=== PATIENT | female | born 1940 | race Caucasian/White ===

== ENCOUNTER 2024-10-08 12:53 | Outpatient (CLI) | payer MEDICARE, MEDICAID, SELFPAY ==
--- OUTSIDE RECORDS SUMMARY | 2024-10-08 12:58 | XMS_ITS ---
Author Organization Unknown Address [address] [place] [address] [phone] Phone Care Team Providers Care Ship Engines Operating Engineer Name Role Phone RANDI Hernadez Attending Unavailable WILLIAM Rollins Primary Unavailable Immunization Immunization Date Status Additional Notes Code Code System influenza, unspecified formulation 01/15/2021 Completed 88 CVX Tdap 12/08/2019 Completed 115 CVX zoster live 01/05/2015 Completed 121 CVX Influenza, high-dose, trivalent, PF 01/07/2016 Completed 135 CVX Influenza, high-dose, trivalent, PF 01/03/2017 Completed 135 CVX Influenza, high-dose, trivalent, PF 12/28/2018 Completed 135 CVX Influenza, high-dose, trivalent, PF 12/14/2023 Completed 135 CVX Influenza, adjuvanted, trivalent, PF 12/18/2017 Completed 168 CVX zoster recombinant 02/28/2019 Completed 187 CVX zoster recombinant 05/28/2019 Completed 187 CVX Influenza, high-dose, quadrivalent, PF 12/10/2019 Completed 197 CVX Influenza, high-dose, quadrivalent, PF 12/15/2020 Completed 197 CVX Influenza, high-dose, quadrivalent, PF 11/26/2021 Completed 197 CVX Influenza, high-dose, quadrivalent, PF 12/08/2022 Completed 197 CVX COVID-19, mRNA, LNP-S, PF, 3 0 mcg/0.3 mL dose 05/14/2020 Completed 208 CVX COVID-19, mRNA, LNP-S, PF, 3 0 mcg/0.3 mL dose 06/04/2020 Completed 208 CVX COVID-19, mRNA, LNP-S, PF, 3 0 mcg/0.3 mL dose 12/23/2020 Completed 208 CVX Pneumococcal conjugate PCV20 , polysaccharide [id number] conjugate, adjuvant, PF 07/16/2023 Completed 216 CVX COVID-19, mRNA, LNP-S, PF, 3 0 mcg/0.3 mL dose, priya-sucrose 07/02/2021 Completed 217 CVX COVID-19, mRNA, LNP-S, bivalent, PF, 50 mcg/0.5 mL or 25mcg/0.25 mL dose 08/06/2022 Completed 229 CVX COVID-19, mRNA, LNP-S, bivalent, PF, 30 mcg/0.3 mL dose 12/30/2021 Completed 300 CVX RSV, recombinant, protein subunit RSVpreF, adjuvant reconstituted, 0.5 mL, PF 07/16/2023 Completed 303 CV X COVID-19, mRNA, LNP-S, PF, 5 0 mcg/0.5 mL 12/16/2022 Completed 312 CVX COVID-19, mRNA, LNP-S, PF, 5 0 mcg/0.5 mL 12/14/2023 Completed 312 CVX COVID-19, mRNA, LNP-S, PF, 5 0 mcg/0.5 mL 07/05/2024 Completed 312 CVX Social History Type Status Start Date End Date Code Code Syst em Smoking History Never smoker (Never Smoked) [id number] SNOMED CT Sex Female Medications Medication Start Date End Date Route Frequency Dose Code Code System Medication Instructions Home Meds oseltamivir phosphate 75MG Oral Capsule 02/14/2022 05/02/2023 ORAL EVERY 12 HOURS 75 MILLIGRAMS 886171 RxNorm TAKE 75 MILLIGRAMS ORAL EVERY 12 HOURS starting the evening of 02/14/2022 Atorvastatin Calcium 40MG Oral Tablet 02/14/2022 05/03/2023 ORAL ONCE A DAY 40 MILLIGRAMS 417978 RxNorm TAKE 40 MILLIGRAMS ORAL ONCE A DAY Eliquis 5MG Oral Tablet 02/14/2022 Unknown ORAL EVERY 12 HOURS 5 MILLIGRAMS 9729008 RxNorm TAKE 5 MILLIGRAMS ORAL EVERY 12 HOURS HYDROcodone bitartrate-ac etaminophen 5MG-325MG Oral Tablet 02/14/2022 05/02/2023 ORAL NEEDED EVERY 6 HOURS 1 TABLET 775410 RxNorm TAKE 1 TABLET ORAL NEEDED EVERY 6 HOURS Lisinopril 40MG Oral Tablet 02/14/2022 Unknown ORAL TWICE A DAY 40 MILLIGRAMS 988008 RxNorm TAKE 40 MILLIGRAMS ORAL TWICE A DAY metFORMIN HCl 500MG Oral Tablet 02/14/2022 Unknown ORAL TWICE A DAY WITH MEALS 500 MILLIGRAMS 536188 RxNorm TAKE 500 MILLIGRAMS ORAL TWICE A DAY WITH MEALS predniSONE 20MG Oral Tablet 02/14/2022 05/02/2023 BY MOUTH ONCE A DAY 2 TABLET 610829 RxNorm TAKE 2 TABLET BY MOUTH ONCE A DAY x 3 days, then TAKE 1 TABLET BY MOUTH ONCE A DAY x 3 days Aspirin 81MG Oral Tablet, Chewable 05/06/2023 Unknown ORAL ONCE A DAY 81 MILLIGRAMS 916172 RxNorm TAKE 81 MILLIGRAMS ORAL ONCE A DAY Digoxin 0.125MG Oral Tablet 05/06/2023 Unknown ORAL ONCE A DAY 0.25 MILLIGRAMS RxNorm TAKE 0.25 MILLIGRAMS ORAL ONCE A DAY Furosemide 40MG Oral Tablet 05/06/2023 Unknown ORAL EVERY 48 HOURS 40 MILLIGRAMS 507126 RxNorm TAKE 40 MILLIGRAMS ORAL EVERY 48 HOURS predniSONE 20MG Oral Tablet 05/06/2023 Unknown ORAL ONCE A DAY 40 MILLIGRAMS 676819 RxNorm TAKE 40 MILLIGRAMS ORAL ONCE A DAY Atorvastatin Calcium 40MG Oral Tablet 05/06/2023 Unknown ORAL AT BEDTIME 40 MILLIGRAMS 944113 RxNorm TAKE 40 MILLIGRAMS ORAL AT BEDTIME Albuterol Sulfate HFA 0.09MG/1Actua tion Inhalation Suspension 05/06/2023 Unknown INHALA TION NEEDED EVERY 4 HOURS 2 Puff 4411667 RxNorm 2 Puff INHALATION NEEDED EVERY 4 HOURS Procare Inhaler Spacer Chamber 05/06/2023 Unknown BY MOUTH DIRECTE D 1 APPLICATOR RxNorm TAKE 1 APPLICATOR BY MOUTH DIRECTED Tessalon Perles 100MG Oral Capsule, Liquid Filled 05/06/2023 Unknown BY MOUTH NEEDED 3 TIMES A DAY 1 CAPSULE 496165 RxNorm TAKE 1 CAPSULE BY MOUTH NEEDED 3 TIMES A DAY Assessment You had the following problems:RSV INFECTIONATRIAL FIBRILLATION W/ RVRTYPE 2 DMESSENTIAL HYPERTENSIONMIXED HYPERLIPIDEMIALESION OF LIVERCOUGHDYSPNEA Hospital Discharge Instructions Should you have any questions prior to discharge, please contact a member of your healthcare team. If you have left the hospital and have any questions, please contact your primary care physician. Reason For Referral No Data Found Problems Problem Start Date Resolved Date Status Code Code System RSV INFECTION active 75257158 SNOMED -CT ATRIAL FIBRILLATION W/ RVR active 154614310914998 SNOMED-CT TYPE 2 DM active 39439217 SNOMED-CT ESSENTIAL HYPERTENSION active 2114577 0 SNOMED-CT MIXED HYPERLIPIDEMIA active 587519651 SNOMED-CT LESION OF LIVER active 622449293 SNOM ED-CT COUGH active 14495646 SNOMED-CT DYSPNEA active 694892081 SNOMED-CT INFLUENZA 05/06/2023 resolved 5756155 SNOMED-CT Allergies and Adverse Reactions Allergy Substance Reaction Severity Start Date Concern Status Co de Code System No Known Allergies Moderate Active 929359599 SN OMED-CT Plan of Treatment US Echo With Color (39013) 10/20/2024 US Carotid Doppler (82059) 04/03/2024 Digital Tico Screen R Unilateral (35158) 11/10/2024 Encounters Encounter Diagnosis Start Date Code Code Sys tem Carpal tunnel syndrome, left upper limb 05/01/2023 SNOMED-CT Personal Care Team Section
--- OUTSIDE RECORDS SUMMARY | 2024-10-08 12:58 | XMS_ITS | Encounter Summary ---
Author Organization [facility] Address [address] [place] [address] Care Team Providers Care Magento Web Developer Name Role Phone Bunny Dash MD Primary Care Provider [phone] Shar Anderson MD Unavailable UnavailAlok Carias MD Unavailable Yue Talbot NP Unavailable Unavailable Cornelia Rees MD Unavailable UnavailMartha Mcnulty MD Unavailable Encounter Details Date Type Department Care Team (Late Contact Info) Description 08/31/2018 Abstract SFL CONVERSION [address] [place] [address] , Generic Conversion, Social History Tobacco Use Types Packs/Day Years Used Date Smoking Tobacco: Never Smokeless Tobacco: Never Alcohol Use Standard Drinks/Week Comments No 0 (1 standard drink = 0.6 oz pur e alcohol) Comments Unknown Sex and Gender Information Value Date Recorded Sex Assigned at Not on file Legal Sex Female 8:59 PM CDT Gender Identity Not on file Sexual Orientation Not on file Occupation Industry Job Start Date Job End Date retired Not on file Not on file Not on file documented as of this encounter Plan of Treatment Upcoming Encounters Date Type Department Care Team (Late Contact Info) Description 10/30/2024 11:15 AM CDT Office Visit [facility] [address] [place] [address] Martha Bennett MD [address] [place] [address] documented as of this encounter Visit Diagnoses Not on filedocumented in this encounter Care Teams Magento Web Developer Relationship Specialty Start Date End Date Bunny Dash MD [address] [place] [address] PCP - General FAMILY PRACTICE 07/17/17 [place] [address] EP Computer Repair Technician CLINICAL CARDIAC ELECTROPHYSIOLOGY 11/30/17 03/21/22 [place] [address] Neurology Psychiatry 01/04/18 [facility] [place] [address] Referring Physician Nurse Practitioner [facility] 03/22/22 [place] [address] Consulting Physician CARDIOVASCULAR DISEASE 03/22/2207/20 Martha Bennett MD [address] [place] [address] Consulting Physician CARDIOVASCULAR DISEASE 07/22/23 documented as of this encounter
--- OUTSIDE RECORDS SUMMARY | 2024-10-08 12:58 | XMS_ITS ---
Author Organization Unknown Address [address] [place] [address] [phone] Phone Care Team Providers Care Cloud Security Architect Name Role Phone ELOY WHALEY Attending Unavailable WILLIAM Rollins Primary Unavailable Immunization [...] 208 CVX Pneumococcal conjugate PCV20 , polysaccharide HLA931 conjugate, adjuvant, PF 07/16/2023 Completed 216 CVX [...] em Smoking History Never smoker (Never Smoked) 450041165 SNOMED CT Sex Female Medications Medication Start Date End Date Route Frequency Dose Code Code System Medication Instructions Home Meds Eliquis 5MG Oral Tablet 02/14/2022 Unknown ORAL EVERY 12 HOURS 5 MILLIGRAMS 7392959 RxNorm TAKE 5 MILLIGRAMS ORAL EVERY 12 HOURS Lisinopril 40MG Oral Tablet 02/14/2022 Unknown ORAL TWICE A DAY 40 MILLIGRAMS 304915 RxNorm TAKE 40 MILLIGRAMS ORAL TWICE A DAY metFORMIN HCl 500MG Oral Tablet 02/14/2022 Unknown ORAL TWICE A DAY WITH MEALS 500 MILLIGRAMS 219132 RxNorm TAKE 500 MILLIGRAMS ORAL TWICE A DAY WITH MEALS Aspirin 81MG Oral Tablet, Chewable 05/06/2023 Unknown ORAL ONCE A DAY 81 MILLIGRAMS 176495 RxNorm TAKE 81 MILLIGRAMS ORAL ONCE A DAY Digoxin 0.125MG Oral Tablet 05/06/2023 Unknown ORAL ONCE A DAY 0.25 MILLIGRAMS RxNorm TAKE 0.25 MILLIGRAMS ORAL ONCE A DAY Furosemide 40MG Oral Tablet 05/06/2023 Unknown ORAL EVERY 48 HOURS 40 MILLIGRAMS 028957 RxNorm TAKE 40 MILLIGRAMS ORAL EVERY 48 HOURS predniSONE 20MG Oral Tablet 05/06/2023 Unknown ORAL ONCE A DAY 40 MILLIGRAMS 691049 RxNorm TAKE 40 MILLIGRAMS ORAL ONCE A DAY Atorvastatin Calcium 40MG Oral Tablet 05/06/2023 Unknown ORAL AT BEDTIME 40 MILLIGRAMS 069360 RxNorm TAKE 40 MILLIGRAMS ORAL AT BEDTIME Albuterol Sulfate HFA 0.09MG/1Actu ation Inhalation Suspension 05/06/2023 Unknown INHALATI ON NEEDED EVERY 4 HOURS 2 Puff 4662718 RxNorm 2 Puff INHALATION NEEDED EVERY 4 HOURS Procare Inhaler Spacer Chamber 05/06/2023 Unknown BY MOUTH DIRECTED 1 APPLICATOR RxNorm TAKE 1 APPLICATOR BY MOUTH DIRECTED Tessalon Perles 100MG Oral Capsule, Liquid Filled 05/06/2023 Unknown BY MOUTH NEEDED 3 TIMES A DAY 1 CAPSULE 709211 RxNorm TAKE 1 CAPSULE BY MOUTH NEEDED [...] Status Code Code System RSV INFECTION active 73644462 SNOMED -CT ATRIAL FIBRILLATION W/ RVR active 389071551999870 SNOMED-CT TYPE 2 DM active 86671855 SNOMED-CT ESSENTIAL HYPERTENSION active 1621834 0 SNOMED-CT MIXED HYPERLIPIDEMIA active 205215785 SNOMED-CT LESION OF LIVER active 439082469 SNOM ED-CT COUGH active 04279824 SNOMED-CT DYSPNEA active 450382503 SNOMED-CT INFLUENZA 05/06/2023 resolved 4824156 SNOMED-CT Allergies and Adverse Reactions Allergy Substance Reaction Severity Start Date Concern Status Co de Code System No Known Allergies Moderate Active 261135109 SN OMED-CT Plan of Treatment US Echo With Color (75827) 10/20/2024 US Carotid Doppler (90561) 04/03/2024 Digital Tico Screen R Unilateral (09167) 11/10/2024 Encounters Encounter Diagnosis Start Date Code Code Sys tem Essential hypertension 10/25/2023 94580412 OLGA LIDIA D-CT Personal Care Team Section
--- OUTSIDE RECORDS SUMMARY | 2024-10-08 12:58 | XMS_ITS ---
Author Organization Unknown Address [address] [place] [address] [phone] Phone Care Team Providers Care Flare Stitcher Name Role Phone JOON DAVEY Attending Unavailable WILLIAM Rollins Primary Unavailable Immunization [...] 208 CVX Pneumococcal conjugate PCV20 , polysaccharide [id number] conjugate, adjuvant, PF 07/16/2023 Completed 216 CVX [...] 0 mcg/0.5 mL 07/05/2024 Completed 312 CVX Results COMPREHENSIVE METABOLIC PANE L - Collect Date/Time: 05/21/2023 10:14 [facility] ID: [id number] [address] [place], [place], [id number] LOINC: 33988-8 Test Value Unit Reference Range Code Code System Flag FASTING NO BUN 19 mg/dL L=7 H=20 3094-0 LOINC CREATININE 0.80 mg/dL L=0.52 H=1.04 2160-0 LOINC GLUCOSE 168 mg/dL L=74 H=106 2345-7 LOINC H SODIUM 141 mmol/L L=132 H=144 2951-2 LOINC POTASSIUM 4.9 mmol/L L=3.5 H=5.1 2823-3 LOINC CHLORIDE 110 mmol/L L=98 H=107 2075-0 LOINC H CO2 23.0 mmol/L L=22.0 H=30.0 8-9 LOINC ANION GAP 13 L=10 H=20 03706-3 LOINC OSMOLALITY 298 mOs/kG L=280 H=296 69717-7 LOINC H BUN/CREAT 23.8 3097-3 LOINC CALCIUM 9.3 mg/dL L=8.3 H=10.5 47632-3 LOINC AST 29 U/L L=15 H=46 1920-8 LOINC ALT 28 U/L L=9 H=72 1742-6 LOINC ALKALINE PHOS 76 U/L L=38 H=126 6768-6 LOINC TOTAL BILI 0.5 mg/dL L=0.2 H=1.3 1975-2 LOINC ALBUMIN 3.8 G/dL L=3.5 H=5.0 1751-7 LOINC TOTAL PROTEIN 7.0 g/L L=6.3 H=8.2 2885-2 LOINC A/G RATIO 1.2 17585-4 LOINC AGE 82 26282-5 LOINC eGFR NON-AFR 73 ml/min eGFR AFR AMER 88 ml/min Social History Type Status Start Date End Date Code Code Syst em Smoking History Never smoker (Never Smoked) 291308843 SNOMED CT Sex Female Medications Medication Start Date End Date Route Frequency Dose Code Code System Medication Instructions Home Meds Eliquis 5MG Oral Tablet 02/14/2022 Unknown ORAL EVERY 12 HOURS 5 MILLIGRAMS 6818617 RxNorm TAKE 5 MILLIGRAMS ORAL EVERY 12 HOURS Lisinopril 40MG Oral Tablet 02/14/2022 Unknown ORAL TWICE A DAY 40 MILLIGRAMS 472732 RxNorm TAKE 40 MILLIGRAMS ORAL TWICE A DAY metFORMIN HCl 500MG Oral Tablet 02/14/2022 Unknown ORAL TWICE A DAY WITH MEALS 500 MILLIGRAMS 367066 RxNorm TAKE 500 MILLIGRAMS ORAL TWICE A DAY WITH MEALS Aspirin 81MG Oral Tablet, Chewable 05/06/2023 Unknown ORAL ONCE A DAY 81 MILLIGRAMS 638725 RxNorm TAKE 81 MILLIGRAMS ORAL ONCE A DAY Digoxin 0.125MG Oral Tablet 05/06/2023 Unknown ORAL ONCE A DAY 0.25 MILLIGRAMS 179138 RxNorm TAKE 0.25 MILLIGRAMS ORAL ONCE A DAY Furosemide 40MG Oral Tablet 05/06/2023 Unknown ORAL EVERY 48 HOURS 40 MILLIGRAMS 403076 RxNorm TAKE 40 MILLIGRAMS ORAL EVERY 48 HOURS predniSONE 20MG Oral Tablet 05/06/2023 Unknown ORAL ONCE A DAY 40 MILLIGRAMS 552529 RxNorm TAKE 40 MILLIGRAMS ORAL ONCE A DAY Atorvastatin Calcium 40MG Oral Tablet 05/06/2023 Unknown ORAL AT BEDTIME 40 MILLIGRAMS 045484 RxNorm TAKE 40 MILLIGRAMS ORAL AT BEDTIME Albuterol Sulfate HFA 0.09MG/1Actu ation Inhalation Suspension 05/06/2023 Unknown INHALATI ON NEEDED EVERY 4 HOURS 2 Puff 8583101 RxNorm 2 Puff INHALATION NEEDED EVERY 4 HOURS Procare Inhaler Spacer Chamber 05/06/2023 Unknown BY MOUTH DIRECTED 1 APPLICATOR RxNorm TAKE 1 APPLICATOR BY MOUTH DIRECTED Tessalon Perles 100MG Oral Capsule, Liquid Filled 05/06/2023 Unknown BY MOUTH NEEDED 3 TIMES A DAY 1 CAPSULE 016047 RxNorm TAKE 1 CAPSULE BY MOUTH NEEDED [...] Status Code Code System RSV INFECTION active 08619923 SNOMED -CT ATRIAL FIBRILLATION W/ RVR active 666037667690888 SNOMED-CT TYPE 2 DM active 85874208 SNOMED-CT ESSENTIAL HYPERTENSION active 4038667 0 SNOMED-CT MIXED HYPERLIPIDEMIA active 022967949 SNOMED-CT LESION OF LIVER active 717339038 SNOM ED-CT COUGH active 77290200 SNOMED-CT DYSPNEA active 322755289 SNOMED-CT INFLUENZA 05/06/2023 resolved 3006360 SNOMED-CT Allergies and Adverse Reactions Allergy Substance Reaction Severity Start Date Concern Status Co de Code System No Known Allergies Moderate Active 008415462 SN OMED-CT Plan of Treatment US Echo With Color (10138) 10/20/2024 US Carotid Doppler (66573) 04/03/2024 Digital Tico Screen R Unilateral (01464) 11/10/2024 Encounters Encounter Diagnosis Start Date Code Code Sys tem Hyperkalemia 05/21/2023 11244877 SNOMED-CT Personal Care Team Section
--- OUTSIDE RECORDS SUMMARY | 2024-10-08 12:58 | XMS_ITS ---
Author Organization Unknown Address [address] [place] [address] [phone] Phone Care Team Providers Care Sustainability Analyst Name Role Phone WILLIAM Rollins Attending Unavailable Immunization Immunization Date Status Additional Notes [...] 208 CVX Pneumococcal conjugate PCV20 , polysaccharide [id number] conjugate, adjuvant, PF 07/16/2023 Completed 216 CVX [...] mcg/0.5 mL 07/05/2024 Completed 312 CVX Results US CAROTID DOPPLER - Complet ed: 04/03/2024 15:37 LOINC: \TM00\\12PI\\DRAo\\BM09\ \[place]RLo\ [place] [address] ---------NAME--------- NUMBER SEX AGE ADMIT DISC. XRAY# F/C TYPE EDWIN CLAY [id number] F 83 04/03/24 04/03/24 97498 MB3 O/P DATE OF : 1940 M/R# [id number] #: [id number] \MRx\ LOCATION: TRANSCRIBED: 04/03/24 15:44 US CAROTID DOPPLER [id number] COMPLETED:04/03/24 15:37 APC [id number] {REASON-US CAROTID: CAROTID BRUIT PHYSICIAN: SIL R A D I O L O G Y R E P O R T CAROTID ARTERIAL DOPPLER CLINICAL HISTORY: CAROTID BRUIT TECHNIQUE: Doppler study of bilateral carotid/vertebral arteries were performed. Comparison: None FINDINGS: There are nonocclusive atherosclerotic changes bilateral carotid bulbs. The bilateral common carotid, external and internal carotid arteries appear patent without hemodynamically significant stenosis. There is no significant flow limiting plaque formation identified.The spectral wave forms and peak systolic velocities are within normal limits. Antegrade flow is present within the vertebral arteries with appropriate velocities and waveforms. Right ICA/CCA PSV ratio = 2.0. Left ICA/CCA PSV ratio = 1.6 . IMPRESSION: 1. No hemodynamically significant stenosis within the carotid arteries. HS:Y R/FINISHER \ITLo\ \UNDo\ \UNDx\ \ITLx\ Reviewed and Electronically Signed by: Evan Tilley MD Signed Date: 04/03/24 15:44 Social History Type Status Start Date End Date Code Code Syst em Smoking History Never smoker (Never Smoked) 459430924 SNOMED CT Sex Female Medications Medication Start Date End Date Route Frequency Dose Code Code System Medication Instructions Home Meds Eliquis 5MG Oral Tablet 02/14/2022 Unknown ORAL EVERY 12 HOURS 5 MILLIGRAMS 5024182 RxNorm TAKE 5 MILLIGRAMS ORAL EVERY 12 HOURS Lisinopril 40MG Oral Tablet 02/14/2022 Unknown ORAL TWICE A DAY 40 MILLIGRAMS 603301 RxNorm TAKE 40 MILLIGRAMS ORAL TWICE A DAY metFORMIN HCl 500MG Oral Tablet 02/14/2022 Unknown ORAL TWICE A DAY WITH MEALS 500 MILLIGRAMS 252120 RxNorm TAKE 500 MILLIGRAMS ORAL TWICE A DAY WITH MEALS Aspirin 81MG Oral Tablet, Chewable 05/06/2023 Unknown ORAL ONCE A DAY 81 MILLIGRAMS 259400 RxNorm TAKE 81 MILLIGRAMS ORAL ONCE A DAY Digoxin 0.125MG Oral Tablet 05/06/2023 Unknown ORAL ONCE A DAY 0.25 MILLIGRAMS 602196 RxNorm TAKE 0.25 MILLIGRAMS ORAL ONCE A DAY Furosemide 40MG Oral Tablet 05/06/2023 Unknown ORAL EVERY 48 HOURS 40 MILLIGRAMS 767312 RxNorm TAKE 40 MILLIGRAMS ORAL EVERY 48 HOURS predniSONE 20MG Oral Tablet 05/06/2023 Unknown ORAL ONCE A DAY 40 MILLIGRAMS 825612 RxNorm TAKE 40 MILLIGRAMS ORAL ONCE A DAY Atorvastatin Calcium 40MG Oral Tablet 05/06/2023 Unknown ORAL AT BEDTIME 40 MILLIGRAMS 037899 RxNorm TAKE 40 MILLIGRAMS ORAL AT BEDTIME Albuterol Sulfate HFA 0.09MG/1Actu ation Inhalation Suspension 05/06/2023 Unknown INHALATI ON NEEDED EVERY 4 HOURS 2 Puff 0780783 RxNorm 2 Puff INHALATION NEEDED EVERY 4 HOURS Procare Inhaler Spacer Chamber 05/06/2023 Unknown BY MOUTH DIRECTED 1 APPLICATOR RxNorm TAKE 1 APPLICATOR BY MOUTH DIRECTED Tessalon Perles 100MG Oral Capsule, Liquid Filled 05/06/2023 Unknown BY MOUTH NEEDED 3 TIMES A DAY 1 CAPSULE 612480 RxNorm TAKE 1 CAPSULE BY MOUTH NEEDED [...] Status Code Code System RSV INFECTION active 70351491 SNOMED -CT ATRIAL FIBRILLATION W/ RVR active 714312601456026 SNOMED-CT TYPE 2 DM active 86974410 SNOMED-CT ESSENTIAL HYPERTENSION active 2533941 0 SNOMED-CT MIXED HYPERLIPIDEMIA active 432528699 SNOMED-CT LESION OF LIVER active 525538544 SNOM ED-CT COUGH active 21767526 SNOMED-CT DYSPNEA active 454554705 SNOMED-CT INFLUENZA 05/06/2023 resolved 6704294 SNOMED-CT Allergies and Adverse Reactions Allergy Substance Reaction Severity Start Date Concern Status Co de Code System No Known Allergies Moderate Active 227274070 SN OMED-CT Plan of Treatment US Echo With Color (74245) 10/20/2024 US Carotid Doppler (11405) 04/03/2024 Digital Tico Screen R Unilateral (33620) 11/10/2024 Encounters Encounter Diagnosis Start Date Code Code Sys tem Respiratory finding 04/03/2024 369847200 SNOMED-C T Personal Care Team Section Imaging Narrative Notes [facility] 04/03/2024 15:[address] [address] ---------NAME--------- NUMBER SEX AGE ADMIT DISC. XRAY# F/C TYPE STIZ YE OBED [id number] F 83 04/03/24 04/03/24 64417 MB3 O/P DATE OF : 1940 M/R# [id number] #: [id number] RM LOCATION: TRANSCRIBED: 04/03/24 15:44 US CAROTID DOPPLER [id number] COMPLETED:04/03/24 15:37 APC [id number] {REASON-US CAROTID: CAROTID BRUIT PHYSICIAN: SIL RADIOLOGY REPORT CAROTID ARTERIAL DOPPLER CLINICAL HISTORY: CAROTID BRUIT TECHNIQUE: Doppler study of bilateral carotid/vertebral arteries were performed. Comparison: None FINDINGS: There are nonocclusive atherosclerotic changes bilateral carotid bulbs. The bilateral common carotid, external and internal carotid arteries appear patent without hemodynamically significant stenosis. There is no significant flow limiting plaque formation identified.The spectral wave forms and peak systolic velocities are within normal limits. Antegrade flow is present within the vertebral arteries with appropriate velocities and waveforms. Right ICA/CCA PSV ratio = 2.0. Left ICA/CCA PSV ratio = 1.6 . IMPRESSION: 1. No hemodynamically significant stenosis within the carotid arteries. HS:Y R/FINISHER Reviewed and Electronically Signed by: Evan Tilley MD Signed Date: 04/03/24 15:44
--- OUTSIDE RECORDS SUMMARY | 2024-10-08 12:59 | XMS_ITS ---
Author Organization Unknown Address [address] [place] [phone] Phone Care Team Providers Care Cdl B Driver Name Role Phone WILLIAM Rollins Attending Unavailable [...] 208 CVX Pneumococcal conjugate PCV20 , polysaccharide [id number] conjugate, adjuvant, PF 07/16/2023 Completed 216 CVX [...] mcg/0.5 mL 07/05/2024 Completed 312 CVX Results BASIC METABOLIC PANEL - Jaren ect Date/Time: 06/09/2024 13:05 [facility] ID: [id number] [address] [place], [place], [id number] LOINC: 50787-4 Test Value Unit Reference Range Code Code System Flag FASTING NO BUN 26 mg/dL L=7 H=20 3094-0 LOINC H CREATININE 0.90 mg/dL L=0.52 H=1.04 2160-0 LOINC GLUCOSE 116 mg/dL L=74 H=106 2345-7 LOINC H CALCIUM 9.8 mg/dL L=8.3 H=10.5 65595-2 LOINC SODIUM 142 mmol/L L=132 H=144 2951-2 LOINC POTASSIUM 4.7 mmol/L L=3.5 H=5.1 2823-3 LOINC CHLORIDE 106 mmol/L L=98 H=107 2075-0 LOINC CO2 26.0 mmol/L L=22.0 H=30.0 2028-9 LOINC ANION GAP 15 L=10 H=20 20839-0 LOINC OSMOLALITY 300 mOs/kG L=280 H=296 16823-3 LOINC H BUN/CREAT 28.9 3097-3 LOINC AGE 83 56378-3 LOINC eGFR NON-AFR 63 ml/min eGFR AFR AMER 76 ml/min HGB A1C -GLYCOHEMOGLOBIN - C ollect Date/Time: 06/09/2024 13:05 [facility] ID: [id number] [address] [place], [place], [id number] LOINC: 4548-4 Test Value Unit Reference Range Code Code System Flag HGBA1C 7.1 % 4548-4 LOINC Social History Type Status Start Date End Date Code Code Syst em Smoking History Never smoker (Never Smoked) 435507069 SNOMED CT Sex Female Medications Medication Start Date End Date Route Frequency Dose Code Code System Medication Instructions Home Meds Eliquis 5MG Oral Tablet 02/14/2022 Unknown ORAL EVERY 12 HOURS 5 MILLIGRAMS 9367718 RxNorm TAKE 5 MILLIGRAMS ORAL EVERY 12 HOURS Lisinopril 40MG Oral Tablet 02/14/2022 Unknown ORAL TWICE A DAY 40 MILLIGRAMS 009407 RxNorm TAKE 40 MILLIGRAMS ORAL TWICE A DAY metFORMIN HCl 500MG Oral Tablet 02/14/2022 Unknown ORAL TWICE A DAY WITH MEALS 500 MILLIGRAMS 232740 RxNorm TAKE 500 MILLIGRAMS ORAL TWICE A DAY WITH MEALS Aspirin 81MG Oral Tablet, Chewable 05/06/2023 Unknown ORAL ONCE A DAY 81 MILLIGRAMS 685748 RxNorm TAKE 81 MILLIGRAMS ORAL ONCE A DAY Digoxin 0.125MG Oral Tablet 05/06/2023 Unknown ORAL ONCE A DAY 0.25 MILLIGRAMS 433192 RxNorm TAKE 0.25 MILLIGRAMS ORAL ONCE A DAY Furosemide 40MG Oral Tablet 05/06/2023 Unknown ORAL EVERY 48 HOURS 40 MILLIGRAMS 561988 RxNorm TAKE 40 MILLIGRAMS ORAL EVERY 48 HOURS predniSONE 20MG Oral Tablet 05/06/2023 Unknown ORAL ONCE A DAY 40 MILLIGRAMS 607650 RxNorm TAKE 40 MILLIGRAMS ORAL ONCE A DAY Atorvastatin Calcium 40MG Oral Tablet 05/06/2023 Unknown ORAL AT BEDTIME 40 MILLIGRAMS 687731 RxNorm TAKE 40 MILLIGRAMS ORAL AT BEDTIME Albuterol Sulfate HFA 0.09MG/1Actu ation Inhalation Suspension 05/06/2023 Unknown INHALATI ON NEEDED EVERY 4 HOURS 2 Puff 8757222 RxNorm 2 Puff INHALATION NEEDED EVERY 4 HOURS Procare Inhaler Spacer Chamber 05/06/2023 Unknown BY MOUTH DIRECTED 1 APPLICATOR RxNorm TAKE 1 APPLICATOR BY MOUTH DIRECTED Tessalon Perles 100MG Oral Capsule, Liquid Filled 05/06/2023 Unknown BY MOUTH NEEDED 3 TIMES A DAY 1 CAPSULE 750077 RxNorm TAKE 1 CAPSULE BY MOUTH NEEDED [...] Status Code Code System RSV INFECTION active 82161050 SNOMED -CT ATRIAL FIBRILLATION W/ RVR active 858813698589226 SNOMED-CT TYPE 2 DM active 56809963 SNOMED-CT ESSENTIAL HYPERTENSION active 2231441 0 SNOMED-CT MIXED HYPERLIPIDEMIA active 383088652 SNOMED-CT LESION OF LIVER active 404448356 SNOM ED-CT COUGH active 81569890 SNOMED-CT DYSPNEA active 764554752 SNOMED-CT INFLUENZA 05/06/2023 resolved 5749960 SNOMED-CT Allergies and Adverse Reactions Allergy Substance Reaction Severity Start Date Concern Status Co de Code System No Known Allergies Moderate Active 877049167 SN OMED-CT Plan of Treatment US Echo With Color (94826) 10/20/2024 US Carotid Doppler (75893) 04/03/2024 Digital Tico Screen R Unilateral (01477) 11/10/2024 Encounters Encounter Diagnosis Start Date Code Code Sys tem Type 2 diabetes mellitus 06/09/2024 89814324 SNO MED-CT Personal Care Team Section
--- OUTSIDE RECORDS SUMMARY | 2024-10-08 12:59 | XMS_ITS ---
Author Organization Unknown Address [address] [place] [phone] Phone Care Team Providers Care Car Hiker Name Role Phone ARELY YO Attending Unavailable WILLIAM Rollins Primary Unavailable Immunization [...] 208 CVX Pneumococcal conjugate PCV20 , polysaccharide [id number] conjugate, adjuvant, PF 07/16/2023 Completed 216 CVX [...] em Smoking History Never smoker (Never Smoked) 256013141 SNOMED CT Sex Female Medications Medication Start Date End Date Route Frequency Dose Code Code System Medication Instructions Home Meds Eliquis 5MG Oral Tablet 02/14/2022 Unknown ORAL EVERY 12 HOURS 5 MILLIGRAMS 4416174 RxNorm TAKE 5 MILLIGRAMS ORAL EVERY 12 HOURS Lisinopril 40MG Oral Tablet 02/14/2022 Unknown ORAL TWICE A DAY 40 MILLIGRAMS 155577 RxNorm TAKE 40 MILLIGRAMS ORAL TWICE A DAY metFORMIN HCl 500MG Oral Tablet 02/14/2022 Unknown ORAL TWICE A DAY WITH MEALS 500 MILLIGRAMS 314641 RxNorm TAKE 500 MILLIGRAMS ORAL TWICE A DAY WITH MEALS Aspirin 81MG Oral Tablet, Chewable 05/06/2023 Unknown ORAL ONCE A DAY 81 MILLIGRAMS 887295 RxNorm TAKE 81 MILLIGRAMS ORAL ONCE A DAY Digoxin 0.125MG Oral Tablet 05/06/2023 Unknown ORAL ONCE A DAY 0.25 MILLIGRAMS RxNorm TAKE 0.25 MILLIGRAMS ORAL ONCE A DAY Furosemide 40MG Oral Tablet 05/06/2023 Unknown ORAL EVERY 48 HOURS 40 MILLIGRAMS 435908 RxNorm TAKE 40 MILLIGRAMS ORAL EVERY 48 HOURS predniSONE 20MG Oral Tablet 05/06/2023 Unknown ORAL ONCE A DAY 40 MILLIGRAMS 269230 RxNorm TAKE 40 MILLIGRAMS ORAL ONCE A DAY Atorvastatin Calcium 40MG Oral Tablet 05/06/2023 Unknown ORAL AT BEDTIME 40 MILLIGRAMS 448663 RxNorm TAKE 40 MILLIGRAMS ORAL AT BEDTIME Albuterol Sulfate HFA 0.09MG/1Actu ation Inhalation Suspension 05/06/2023 Unknown INHALATI ON NEEDED EVERY 4 HOURS 2 Puff 2901953 RxNorm 2 Puff INHALATION NEEDED EVERY 4 HOURS Procare Inhaler Spacer Chamber 05/06/2023 Unknown BY MOUTH DIRECTED 1 APPLICATOR RxNorm TAKE 1 APPLICATOR BY MOUTH DIRECTED Tessalon Perles 100MG Oral Capsule, Liquid Filled 05/06/2023 Unknown BY MOUTH NEEDED 3 TIMES A DAY 1 CAPSULE 046766 RxNorm TAKE 1 CAPSULE BY MOUTH NEEDED [...] Status Code Code System RSV INFECTION active 22932734 SNOMED -CT ATRIAL FIBRILLATION W/ RVR active 447124955856840 SNOMED-CT TYPE 2 DM active 82760321 SNOMED-CT ESSENTIAL HYPERTENSION active 1317972 0 SNOMED-CT MIXED HYPERLIPIDEMIA active 148831659 SNOMED-CT LESION OF LIVER active 151222472 SNOM ED-CT COUGH active 67448146 SNOMED-CT DYSPNEA active 589607917 SNOMED-CT INFLUENZA 05/06/2023 resolved 4612344 SNOMED-CT Allergies and Adverse Reactions Allergy Substance Reaction Severity Start Date Concern Status Co de Code System No Known Allergies Moderate Active 022033521 SN OMED-CT Plan of Treatment US Echo With Color (03964) 10/20/2024 US Carotid Doppler (48535) 04/03/2024 Digital Tico Screen R Unilateral (73366) 11/10/2024 Encounters Encounter Diagnosis Start Date Code Code Sys tem Pain in left hand 05/27/2024 SNOMED-CT Personal Care Team Section
--- OUTSIDE RECORDS SUMMARY | 2024-10-08 12:59 | XMS_ITS ---
Author Organization Unknown Address [address] [place] [phone] Phone Care Team Providers Care Grid Casting Machine Operator Helper Name Role Phone JOON DAVEY Attending Unavailable [...] 208 CVX Pneumococcal conjugate PCV20 , polysaccharide [id number] conjugate, adjuvant, PF 07/16/2023 Completed 216 CVX [...] mL 07/05/2024 Completed 312 CVX Results US LIVER - Completed: 2023 10:54 LOINC: EXAM DESCRIPTION: US LIVER REASON FOR STUDY: Possible liver lesion for further assessment, left hepatic lobe lesion on CT. TECHNIQUE: Ultrasound of the right upper quadrant of the abdomen was performed with grayscale and color Doppler. COMPARISON: Correlation with the CT chest abdomen and pelvis 05/01/2023. FINDINGS: PANCREAS: Visualized portions of the pancreas are within normal limits. Portions of the pancreatic body and tail are obscured due to bowel gas. LIVER: The liver is normal in echogenicity. Liver measures 15.9 cm. No focal hepatic lesions are seen. Specifically there is no lesion demonstrated in the left hepatic lobe of the liver. Antegrade direction of flow shown in the main portal vein. GALLBLADDER: Echogenic material the gallbladder with shadowing on image 25 characteristic of cholelithiasis. No gallbladder wall thickening or pericholecystic fluid. No reported sonographic Long's sign. BILIARY: There is no intrahepatic biliary ductal dilatation. The common bile duct measures 0.5 cm in diameter. OTHER: No other significant finding. IMPRESSION: ? ? No evidence of an acute abnormality. ? ? No ultrasound evidence of a hepatic lesion. If further assessment were needed, could consider hepatic mass protocol MRI. ? ? Cholelithiasis with no secondary features of acute cholecystitis. THIS IS AN ELECTRONICALLY VERIFIED FINAL REPORT 08/29/2023 10:32 AM - Electronically signed by Alec Walker M.D. CH: JAZZY Report ID: [id number] Reading Location: [id number] Social History Type Status Start Date End Date Code Code Syst em Smoking History Never smoker (Never Smoked) 673963503 SNOMED CT Sex Female Medications Medication Start Date End Date Route Frequency Dose Code Code System Medication Instructions Home Meds Eliquis 5MG Oral Tablet 02/14/2022 Unknown ORAL EVERY 12 HOURS 5 MILLIGRAMS 6895306 RxNorm TAKE 5 MILLIGRAMS ORAL EVERY 12 HOURS Lisinopril 40MG Oral Tablet 02/14/2022 Unknown ORAL TWICE A DAY 40 MILLIGRAMS 068652 RxNorm TAKE 40 MILLIGRAMS ORAL TWICE A DAY metFORMIN HCl 500MG Oral Tablet 02/14/2022 Unknown ORAL TWICE A DAY WITH MEALS 500 MILLIGRAMS 797124 RxNorm TAKE 500 MILLIGRAMS ORAL TWICE A DAY WITH MEALS Aspirin 81MG Oral Tablet, Chewable 05/06/2023 Unknown ORAL ONCE A DAY 81 MILLIGRAMS 530321 RxNorm TAKE 81 MILLIGRAMS ORAL ONCE A DAY Digoxin 0.125MG Oral Tablet 05/06/2023 Unknown ORAL ONCE A DAY 0.25 MILLIGRAMS 040885 RxNorm TAKE 0.25 MILLIGRAMS ORAL ONCE A DAY Furosemide 40MG Oral Tablet 05/06/2023 Unknown ORAL EVERY 48 HOURS 40 MILLIGRAMS 668239 RxNorm TAKE 40 MILLIGRAMS ORAL EVERY 48 HOURS predniSONE 20MG Oral Tablet 05/06/2023 Unknown ORAL ONCE A DAY 40 MILLIGRAMS 294334 RxNorm TAKE 40 MILLIGRAMS ORAL ONCE A DAY Atorvastatin Calcium 40MG Oral Tablet 05/06/2023 Unknown ORAL AT BEDTIME 40 MILLIGRAMS 249969 RxNorm TAKE 40 MILLIGRAMS ORAL AT BEDTIME Albuterol Sulfate HFA 0.09MG/1Actu ation Inhalation Suspension 05/06/2023 Unknown INHALATI ON NEEDED EVERY 4 HOURS 2 Puff 2231418 RxNorm 2 Puff INHALATION NEEDED EVERY 4 HOURS Procare Inhaler Spacer Chamber 05/06/2023 Unknown BY MOUTH DIRECTED 1 APPLICATOR RxNorm TAKE 1 APPLICATOR BY MOUTH DIRECTED Terra Perllaurita 100MG Oral Capsule, Liquid Filled 05/06/2023 Unknown BY MOUTH NEEDED 3 TIMES A DAY 1 CAPSULE 468124 RxNorm TAKE 1 CAPSULE BY MOUTH NEEDED 3 TIMES A DAY Assessment You had the following problems:RSV INFECTIONATRIAL FIBRILLATION W/ RVRTYPE 2 DMESSENTIAL HYPERTENSIONMIXED HYPERLIPIDEMIALESION OF [facility] Discharge Instructions Should you have any questions prior to discharge, please contact a member of your healthcare team. If you have left the hospital and have any questions, please contact your primary care physician. Reason For Referral No Data Found Problems Problem Start Date Resolved Date Status Code Code System RSV INFECTION active 69680315 SNOMED -CT ATRIAL FIBRILLATION W/ RVR active 951494791068370 SNOMED-CT TYPE 2 DM active 13161814 SNOMED-CT ESSENTIAL HYPERTENSION active 9420591 0 SNOMED-CT MIXED HYPERLIPIDEMIA active 978870158 SNOMED-CT LESION OF LIVER active 508794764 SNOM ED-CT COUGH active 93885863 SNOMED-CT DYSPNEA active 786822205 SNOMED-CT INFLUENZA 05/06/2023 resolved 7822635 SNOMED-CT Allergies and Adverse Reactions Allergy Substance Reaction Severity Start Date Concern Status Co de Code System No Known Allergies Moderate Active 482240226 SN OMED-CT Plan of Treatment US Echo With Color (55371) 10/20/2024 US Carotid Doppler (19435) 04/03/2024 Digital Tcio Screen R Unilateral (56220) 11/10/2024 Encounters Encounter Diagnosis Start Date Code Code Sys tem Liver disease, unspecified 08/28/2023 S NOMED-CT Personal Care Team Section Imaging Narrative Notes
--- OUTSIDE RECORDS SUMMARY | 2024-10-08 13:00 | XMS_ITS ---
Author Organization Unknown Address [address] [place] [phone] Phone Care Team Providers Care Quartz Miner Name Role Phone WILLIAM Rollins Attending Unavailable [...] 208 CVX Pneumococcal conjugate PCV20 , polysaccharide [id number] conjugate, adjuvant, PF 07/16/2023 Completed 216 CVX [...] COMPREHENSIVE METABOLIC PANE L - Collect Date/Time: 11/09/2023 10:35 [facility] ID: [id number] [address] [place], [place], [id number] LOINC: 22386-0 Test Value Unit Reference Range Code Code System Flag FASTING UNKNOWN BUN 28 mg/dL L=7 H=20 3094-0 LOINC H CREATININE 1.10 mg/dL L=0.52 H=1.04 2160-0 LOINC H GLUCOSE 119 mg/dL L=74 H=106 2345-7 LOINC H SODIUM 141 mmol/L L=132 H=144 2951-2 LOINC POTASSIUM 4.7 mmol/L L=3.5 H=5.1 2823-3 LOINC CHLORIDE 102 mmol/L L=98 H=107 2075-0 LOINC CO2 28.0 mmol/L L=22.0 H=30.0 2028-9 LOINC ANION GAP 16 L=10 H=20 69006-0 LOINC OSMOLALITY 299 mOs/kG L=280 H=296 93309-4 LOINC H BUN/CREAT 25.5 3097-3 LOINC CALCIUM 10.2 mg/dL L=8.3 H=10.5 48084-3 LOINC AST 28 U/L L=15 H=46 1920-8 LOINC ALT 20 U/L L=9 H=72 1742-6 LOINC ALKALINE PHOS 77 U/L L=38 H=126 6768-6 LOINC TOTAL BILI 0.7 mg/dL L=0.2 H=1.3 1975-2 LOINC ALBUMIN 4.6 G/dL L=3.5 H=5.0 1751-7 LOINC TOTAL PROTEIN 7.9 g/L L=6.3 H=8.2 2885-2 LOINC A/G RATIO 1.4 10662-6 LOINC AGE 83 31200-8 LOINC eGFR NON-AFR 50 ml/min eGFR AFR AMER 61 ml/min HGB A1C -GLYCOHEMOGLOBIN - C ollect Date/Time: 11/09/2023 10:35 [facility] ID: [id number] [address] [place], [place], [id number] LOINC: 4548-4 Test Value Unit Reference Range Code Code System Flag HGBA1C 7.5 % 4548-4 LOINC DIG 3D TICO SCREENING BILATER AL - Completed: 11/09/2023 13:17 LOINC: See Scanned Image Attachment for Report Dictated By: Trans Initials: BG Trans Date: 11/14/23 10:47 <<REPDIST>> Social History Type Status Start Date End Date Code Code Syst em Smoking History Never smoker (Never Smoked) 348026337 SNOMED CT Sex Female Medications Medication Start Date End Date Route Frequency Dose Code Code System Medication Instructions Home Meds Eliquis 5MG Oral Tablet 02/14/2022 Unknown ORAL EVERY 12 HOURS 5 MILLIGRAMS 0497426 RxNorm TAKE 5 MILLIGRAMS ORAL EVERY 12 HOURS Lisinopril 40MG Oral Tablet 02/14/2022 Unknown ORAL TWICE A DAY 40 MILLIGRAMS 472176 RxNorm TAKE 40 MILLIGRAMS ORAL TWICE A DAY metFORMIN HCl 500MG Oral Tablet 02/14/2022 Unknown ORAL TWICE A DAY WITH MEALS 500 MILLIGRAMS 689278 RxNorm TAKE 500 MILLIGRAMS ORAL TWICE A DAY WITH MEALS Aspirin 81MG Oral Tablet, Chewable 05/06/2023 Unknown ORAL ONCE A DAY 81 MILLIGRAMS 732887 RxNorm TAKE 81 MILLIGRAMS ORAL ONCE A DAY Digoxin 0.125MG Oral Tablet 05/06/2023 Unknown ORAL ONCE A DAY 0.25 MILLIGRAMS 695575 RxNorm TAKE 0.25 MILLIGRAMS ORAL ONCE A DAY Furosemide 40MG Oral Tablet 05/06/2023 Unknown ORAL EVERY 48 HOURS 40 MILLIGRAMS 928919 RxNorm TAKE 40 MILLIGRAMS ORAL EVERY 48 HOURS predniSONE 20MG Oral Tablet 05/06/2023 Unknown ORAL ONCE A DAY 40 MILLIGRAMS 885105 RxNorm TAKE 40 MILLIGRAMS ORAL ONCE A DAY Atorvastatin Calcium 40MG Oral Tablet 05/06/2023 Unknown ORAL AT BEDTIME 40 MILLIGRAMS 302785 RxNorm TAKE 40 MILLIGRAMS ORAL AT BEDTIME Albuterol Sulfate HFA 0.09MG/1Actu ation Inhalation Suspension 05/06/2023 Unknown INHALATI ON NEEDED EVERY 4 HOURS 2 Puff 2533863 RxNorm 2 Puff INHALATION NEEDED EVERY 4 HOURS Procare Inhaler Spacer Chamber 05/06/2023 Unknown BY MOUTH DIRECTED 1 APPLICATOR RxNorm TAKE 1 APPLICATOR BY MOUTH DIRECTED Tessalon Perles 100MG Oral Capsule, Liquid Filled 05/06/2023 Unknown BY MOUTH NEEDED 3 TIMES A DAY 1 CAPSULE 859261 RxNorm TAKE 1 CAPSULE BY MOUTH NEEDED 3 TIMES A DAY Assessment You had the following problems:RSV INFECTIONATRIAL FIBRILLATION W/ RVRTYPE 2 DMESSENTIAL HYPERTENSIONMIXED HYPERLIPIDEMIALESION OF [facility]UN[facility] Discharge Instructions Should you have any questions prior to discharge, please contact a member of your healthcare team. If you have left the hospital and have any questions, please contact your primary care physician. Reason For Referral No Data Found Problems Problem Start Date Resolved Date Status Code Code System RSV INFECTION active 98905835 SNOMED -CT ATRIAL FIBRILLATION W/ RVR active 104670591986137 SNOMED-CT TYPE 2 DM active 63659002 SNOMED-CT ESSENTIAL HYPERTENSION active 4768830 0 SNOMED-CT MIXED HYPERLIPIDEMIA active 367934149 SNOMED-CT LESION OF LIVER active 502187506 SNOM ED-CT COUGH active 55317291 SNOMED-CT DYSPNEA active 060784482 SNOMED-CT INFLUENZA 05/06/2023 resolved 2913211 SNOMED-CT Allergies and Adverse Reactions Allergy Substance Reaction Severity Start Date Concern Status Co de Code System No Known Allergies Moderate Active 994058739 SN OMED-CT Plan of Treatment US Echo With Color (72813) 10/20/2024 US Carotid Doppler (16126) 04/03/2024 Digital Tico Screen R Unilateral (04030) 11/10/2024 Encounters Encounter Diagnosis Start Date Code Code Sys tem Screening mammography 11/09/2023 35206252 SNOMED -CT Personal Care Team Section Imaging Narrative Notes [facility] 11/14/2023 10:47 [place] [id number] RADIOLOGY REPORT Patient Number: [id number] Patient Name: EDWIN CLAY Type: O/P MR Number: [id number] : 1940 Age: 83 Sex: F Room #: Admit Date: 11/09/23 Discharge Date 11/09/23 Ordering Physician: WILLIAM Rollins Family Physician: SIL Second Physician: X-Ray Number : [id number] DIG 3D TICO SCREENING BILATERA 29267 COMPLETE:11/09/23 13:17 KSE [id number] (REASONS-DIG 3D TICO SCREENING BILATERAL: SCREENING See Scanned Image Attachment for Report Dictated By: Mamie Initials: Trans Date: 11/14/23 10:47 <<REPDIST>>
--- OUTSIDE RECORDS SUMMARY | 2024-10-08 13:00 | XMS_ITS ---
Author Organization Unknown Address [address] [place] [phone] Phone Care Team Providers Care Cabinet And Trim Installer Name Role Phone SHERRI DINH Attending Unavailable WILLIAM Rollins Primary Unavailable Immunization [...] 208 CVX Pneumococcal conjugate PCV20 , polysaccharide [id number] conjugate, adjuvant, PF 07/16/2023 Completed 216 CVX [...] mcg/0.5 mL 07/05/2024 Completed 312 CVX Results CBC W/ DIFF - Collect Date/T french: 09/20/2023 20:53 [facility] ID: [id number] [address] [place], [place], [id number] LOINC: 03641-9 Test Value Unit Reference Range Code Code System Flag WBC 5.4 10^3uL L=4.8 H=10.8 RBC 4.54 10^6uL L=4.20 H=5.40 HEMOGLOBIN 12.7 g/dL L=12.0 H=16.0 718-7 LOINC HEMATOCRIT 40.5 VOL% L=37.0 H=47.0 4544-3 LOINC MCV 89.2 fL L=81.0 H=99.0 MCH 28.0 pg L=27.0 H=32.0 MCHC 31.4 g/dL L=32.0 H=36.0 L PLATELETS 202 10^3uL L=100 H=400 73890-3 LOINC RDW 16.4 % L=11.7 H=15.5 H %GRAN 64.1 % L=40.0 H=70.0 30267-5 LOINC %LYMPH 23.1 % L=20.0 H=45.0 736-9 LOINC %MONO 12.2 % L=2.0 H=10.0 61107-2 LOINC H %EOS 0.0 % L=0.0 H=6.0 713-8 LOINC %BASO 0.4 % L=0.0 H=3.0 706-2 LOINC #NEUT 3.5 10^3uL L=1.9 H=7.6 98466-8 LOINC #LYMPH 1.3 10^3uL L=0.9 H=4.9 05437-3 LOINC #MONO 0.7 10^3uL L=0.1 H=0.9 38070-9 LOINC #EOS 0.0 10^3uL L=0.0 H=0.6 712-0 LOINC #BASO 0.02 10^3uL L=0.00 H=0.10 13032-0 LOINC #IM GRANS 0.0 10^3uL L=0.0 H=7.0 68368-7 LOINC %IM GRANS 0.2 % L=0.0 H=5.0 62998-1 LOINC %NRB 0.0 L=0.0 H=0.2 16130-8 LOINC #NRB 0.000 L=0.000 H=0.012 21684-3 LOINC MANUAL DIFF NOT INDICATED RBC MORPH NOT INDICATED COMPREHENSIVE METABOLIC PANE L - Collect Date/Time: 09/20/2023 20:53 [facility] ID: [id number] [address] [place], [place], [id number] LOINC: 79940-6 Test Value Unit Reference Range Code Code System Flag FASTING UNKNOWN BUN 32 mg/dL L=7 H=20 3094-0 LOINC H CREATININE 1.40 mg/dL L=0.52 H=1.04 2160-0 LOINC H GLUCOSE 136 mg/dL L=74 H=106 2345-7 LOINC H SODIUM 137 mmol/L L=132 H=144 2951-2 LOINC POTASSIUM 4.9 mmol/L L=3.5 H=5.1 2823-3 LOINC CHLORIDE 105 mmol/L L=98 H=107 2075-0 LOINC CO2 27.0 mmol/L L=22.0 H=30.0 8-9 LOINC ANION GAP 10 L=10 H=20 82451-1 LOINC OSMOLALITY 293 mOs/kG L=280 H=296 62807-8 LOINC BUN/CREAT 22.9 3097-3 LOINC CALCIUM 9.6 mg/dL L=8.3 H=10.5 07032-1 LOINC AST 25 U/L L=15 H=46 1920-8 LOINC ALT 21 U/L L=9 H=72 1742-6 LOINC ALKALINE PHOS 63 U/L L=38 H=126 6768-6 LOINC TOTAL BILI 0.5 mg/dL L=0.2 H=1.3 1975-2 LOINC ALBUMIN 4.2 G/dL L=3.5 H=5.0 1751-7 LOINC TOTAL PROTEIN 7.5 g/L L=6.3 H=8.2 2885-2 LOINC A/G RATIO 1.3 05695-4 LOINC AGE 83 90688-0 LOINC eGFR NON-AFR 38 ml/min eGFR AFR AMER 46 ml/min LACTIC ACID - Collect Date/T french: 09/20/2023 20:53 [facility] ID: [id number] [address] [place] [address], [id number] LOINC: 37921-8 Test Value Unit Reference Range Code Code System Flag LACTIC ACID 1.6 mmol/L L=0.7 H=2.1 12910-4 LOINC RESPIRATORY 4 PLEX COVID FLU RSV PCR - Collect Date/Time: 09/20/2023 20:50 [facility] ID: [id number] [address] [place] [address], [phone] LOINC: 79025-0 Test Value Unit Reference Range Code Code System Flag SARS CoV2 PCR POSITIVE A FLU A PCR NEGATIVE FLU B PCR NEGATIVE RSV PCR NEGATIVE SEND TO [facility]? YES GROUP A STREP BY PCR - Colle ct Date/Time: 09/20/2023 20:48 [facility] ID: [id number] [address] [place], [place], [id number] LOINC: 17915-4 Test Value Unit Reference Range Code Code System Flag GRP A STREP PCR NEGATIVE NORMAL: NEGATIVE CHEST 2V - Completed: 2023 21:05 LOINC: EXAM DESCRIPTION: CHEST 2V REASON FOR STUDY: URI symptoms since 09/15/2023 TECHNIQUE: Frontal radiographic view(s) of the chest. COMPARISON: 05/01/2023 FINDINGS: Chronic prominent interstitial markings are noted without overt pulmonary edema. No consolidation, significant pleural effusion or pneumothorax. Heart size and mediastinal contours are stable. Spinal cord stimulator. Right shoulder arthroplasty. IMPRESSION: 1. No gross acute cardiopulmonary abnormality is seen. THIS IS AN ELECTRONICALLY VERIFIED FINAL REPORT 09/20/2023 9:10 PM - Electronically signed by Clay Fairchild M.D. AG: [facility] Report ID: [id number] Reading Location: [place] [address] Social History Type Status Start Date End Date Code Code Syst em Smoking History Never smoker (Never Smoked) 887163216 SNOMED CT Sex Female Medications Medication Start Date End Date Route Frequency Dose Code Code System Medication Instructions Home Meds Eliquis 5MG Oral Tablet 02/14/2022 Unknown ORAL EVERY 12 HOURS 5 MILLIGRAMS 9534047 RxNorm TAKE 5 MILLIGRAMS ORAL EVERY 12 HOURS Lisinopril 40MG Oral Tablet 02/14/2022 Unknown ORAL TWICE A DAY 40 MILLIGRAMS 581574 RxNorm TAKE 40 MILLIGRAMS ORAL TWICE A DAY metFORMIN HCl 500MG Oral Tablet 02/14/2022 Unknown ORAL TWICE A DAY WITH MEALS 500 MILLIGRAMS 192738 RxNorm TAKE 500 MILLIGRAMS ORAL TWICE A DAY WITH MEALS Aspirin 81MG Oral Tablet, Chewable 05/06/2023 Unknown ORAL ONCE A DAY 81 MILLIGRAMS 767562 RxNorm TAKE 81 MILLIGRAMS ORAL ONCE A DAY Digoxin 0.125MG Oral Tablet 05/06/2023 Unknown ORAL ONCE A DAY 0.25 MILLIGRAMS 097427 RxNorm TAKE 0.25 MILLIGRAMS ORAL ONCE A DAY Furosemide 40MG Oral Tablet 05/06/2023 Unknown ORAL EVERY 48 HOURS 40 MILLIGRAMS 688192 RxNorm TAKE 40 MILLIGRAMS ORAL EVERY 48 HOURS predniSONE 20MG Oral Tablet 05/06/2023 Unknown ORAL ONCE A DAY 40 MILLIGRAMS 716341 RxNorm TAKE 40 MILLIGRAMS ORAL ONCE A DAY Atorvastatin Calcium 40MG Oral Tablet 05/06/2023 Unknown ORAL AT BEDTIME 40 MILLIGRAMS 198468 RxNorm TAKE 40 MILLIGRAMS ORAL AT BEDTIME Albuterol Sulfate HFA 0.09MG/1Actu ation Inhalation Suspension 05/06/2023 Unknown INHALATI ON NEEDED EVERY 4 HOURS 2 Puff 4438603 RxNorm 2 Puff INHALATION NEEDED EVERY 4 HOURS Procare Inhaler Spacer Chamber 05/06/2023 Unknown BY MOUTH DIRECTED 1 APPLICATOR RxNorm TAKE 1 APPLICATOR BY MOUTH DIRECTED Tessalon Perles 100MG Oral Capsule, Liquid Filled 05/06/2023 Unknown BY MOUTH NEEDED 3 TIMES A DAY 1 CAPSULE 189047 RxNorm TAKE 1 CAPSULE BY MOUTH NEEDED [...] Status Code Code System RSV INFECTION active 85465409 SNOMED -CT ATRIAL FIBRILLATION W/ RVR active 456047217218709 SNOMED-CT TYPE 2 DM active 60598770 SNOMED-CT ESSENTIAL HYPERTENSION active 9056320 0 SNOMED-CT MIXED HYPERLIPIDEMIA active 432229378 SNOMED-CT LESION OF LIVER active 729262631 SNOM ED-CT COUGH active 82526030 SNOMED-CT DYSPNEA active 310781865 SNOMED-CT INFLUENZA 05/06/2023 resolved 7756868 SNOMED-CT Allergies and Adverse Reactions Allergy Substance Reaction Severity Start Date Concern Status Co de Code System No Known Allergies Moderate Active 719053294 SN OMED-CT Plan of Treatment US Echo With Color (69962) 10/20/2024 US Carotid Doppler (53705) 04/03/2024 Digital Tico Screen R Unilateral (01448) 11/10/2024 Encounters Encounter Diagnosis Start Date Code Code Sys tem COVID-19 09/20/2023 SNOMED-CT Personal Care Team Section Imaging Narrative Notes
--- OUTSIDE RECORDS SUMMARY | 2024-10-08 13:00 | XMS_ITS | Clinical Summary ---
Author Organization [facility] Address [address] [place] [address] Phone Care Team Providers Care Transaction Manager Name Role Phone Bunny Dash MD Primary Care Provider [phone] Allergies No known active allergies Medications HYDROcodone-acet aminophen (NORCO) 5-325 MG Tablet Take 1 Tablet by mouth every 4 hours as needed. Active apixaban (Eliquis) 5 MG Tablet Take 5 mg by mouth 2 times daily. Active aspirin EC (Aspirin 81) 81 MG Tablet Delayed Response Take 81 mg by mouth daily. Active atorvastatin (LIPITOR) 40 MG Tablet Take 40 mg by mouth nightly. Active baclofen (LIORESAL) 10 MG Tablet Take 20 mg by mouth 3 times daily as needed. Active lisinopril (PRINIVIL, ZESTRIL) 40 MG Tablet Take 40 mg by mouth 2 times daily. Active metFORMIN (GLUCOPHAGE) 500 MG Tablet Take 500 mg by mouth 2 times daily (with meals). Active ondansetron (Zofran) 4 MG Tablet Take 4 mg by mouth every 8 hours as needed. 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 Family History Medical History Relation Name Comments Cancer Mother LUNG Cancer Sister 1 LUNG Cancer Sister 2 BREAST Relation Name Status Comments Father DOES NOT KNOW A [place] HISTORY ABOUT HIM Mother Sister 1 Sister 2 Social History Tobacco Use Types Packs/Day Years Used Date Smoking Tobacco: Never Smokeless Tobacco: Never Alcohol Use Standard Drinks/Week Comments Never 0 (1 standard drink = 0.6 oz pur e alcohol) Comments Unknown Sex and Gender Information Value Date Recorded Sex Assigned at Not on file 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 Gender Identity Not on file Sexual Orientation Not on file Last Filed Vital Signs Vital Sign Reading Time Taken Comments Blood Pressure 137/61 07/30/2020 2:20 PM CDT Pulse 67 07/30/2020 2:20 PM CDT Temperature 36 C (96.8 F) 07/30/2020 2:20 PM CDT Respiratory Rate 16 07/30/2020 2:20 PM CDT Oxygen Saturation 93% 07/30/2020 2:20 PM CDT Inhaled Oxygen Concentration - - Weight 113.4 kg (250 lb) 07/26/2020 1:00 PM CDT Height 174 cm (5' 8.5) 07/26/2020 1:00 PM CDT Body Mass Index 37.46 07/26/2020 1:00 PM CDT Plan of Treatment Health Maintenance Due Date Last Done Comments Hepatitis C Virus (HCV) Screening 1940 Pneumococcal Immunization (50+ years) (1 of 1 - PCV) 1988 Respiratory Syncytial Virus (RSV) Immunization (Adult) (1 - 1-dose 75+ series) 2013 SARS-COV-2 Immunization ( season) 2023 12/23/2020, 06/04/2020, 05/14/2020 Influenza Immunization (#1) 11/24/202411/24, 12/28/2018, 12/18/2017, Additional history exists Zoster Immunization Completed 05/28/2019, 02/28/2019, 01/05/2015 DTaP/Tdap/Td Immunization Discontinued 12/08/2019 TdaP Immunization Completed 12/08/2019 Hepatitis B Immunization Aged Out No longer eligible based on patient's age to complete this topic Human Papillomavirus (HPV) Immunization Aged Out No longer eligible based on patient's age to complete this topic Meningococcal Immunization (ACWY) Aged Out No longer eligible based on patient's age to complete this topic Rotavirus Immunization Aged Out No lo nger eligible based on patient's age to complete this topic Medical Devices Implanted Type Area Reservationist Device Identifier Shelf Expiration Date Model / Serial / Lot Proclaim Xr 7 Implanted:Qty: 1 on 07/30/2020 by Lorena Allen MD at [facility] N/A: Back 05/07/2022 / [id number] / [id number] Insurance MEDICAID [place] MEDICARE C [employer] Care Teams Transaction Manager Relationship Specialty Start Date End Date Bunny Dash MD [address] [place] [address] PCP - General Family Medicine 02/27/17
--- OUTSIDE RECORDS SUMMARY | 2024-10-08 13:00 | XMS_ITS ---
Author Organization Unknown Address [address] [place] [phone] Phone Care Team Providers Care Remote Sensing Engineer Name Role Phone ARELY YO Attending Unavailable [...] 208 CVX Pneumococcal conjugate PCV20 , polysaccharide [id number] conjugate, adjuvant, PF 07/16/2023 Completed 216 CVX [...] em Smoking History Never smoker (Never Smoked) 061625131 SNOMED CT Sex Female Medications Medication Start Date End Date Route Frequency Dose Code Code System Medication Instructions Home Meds Eliquis 5MG Oral Tablet 02/14/2022 Unknown ORAL EVERY 12 HOURS 5 MILLIGRAMS 3762254 RxNorm TAKE 5 MILLIGRAMS ORAL EVERY 12 HOURS Lisinopril 40MG Oral Tablet 02/14/2022 Unknown ORAL TWICE A DAY 40 MILLIGRAMS 498577 RxNorm TAKE 40 MILLIGRAMS ORAL TWICE A DAY metFORMIN HCl 500MG Oral Tablet 02/14/2022 Unknown ORAL TWICE A DAY WITH MEALS 500 MILLIGRAMS 386982 RxNorm TAKE 500 MILLIGRAMS ORAL TWICE A DAY WITH MEALS Aspirin 81MG Oral Tablet, Chewable 05/06/2023 Unknown ORAL ONCE A DAY 81 MILLIGRAMS 158679 RxNorm TAKE 81 MILLIGRAMS ORAL ONCE A DAY Digoxin 0.125MG Oral Tablet 05/06/2023 Unknown ORAL ONCE A DAY 0.25 MILLIGRAMS RxNorm TAKE 0.25 MILLIGRAMS ORAL ONCE A DAY Furosemide 40MG Oral Tablet 05/06/2023 Unknown ORAL EVERY 48 HOURS 40 MILLIGRAMS 072221 RxNorm TAKE 40 MILLIGRAMS ORAL EVERY 48 HOURS predniSONE 20MG Oral Tablet 05/06/2023 Unknown ORAL ONCE A DAY 40 MILLIGRAMS 461034 RxNorm TAKE 40 MILLIGRAMS ORAL ONCE A DAY Atorvastatin Calcium 40MG Oral Tablet 05/06/2023 Unknown ORAL AT BEDTIME 40 MILLIGRAMS 601203 RxNorm TAKE 40 MILLIGRAMS ORAL AT BEDTIME Albuterol Sulfate HFA 0.09MG/1Actu ation Inhalation Suspension 05/06/2023 Unknown INHALATI ON NEEDED EVERY 4 HOURS 2 Puff 7442973 RxNorm 2 Puff INHALATION NEEDED EVERY 4 HOURS Procare Inhaler Spacer Chamber 05/06/2023 Unknown BY MOUTH DIRECTED 1 APPLICATOR RxNorm TAKE 1 APPLICATOR BY MOUTH DIRECTED Tessalon Perles 100MG Oral Capsule, Liquid Filled 05/06/2023 Unknown BY MOUTH NEEDED 3 TIMES A DAY 1 CAPSULE 409538 RxNorm TAKE 1 CAPSULE BY MOUTH NEEDED [...] Status Code Code System RSV INFECTION active 51263633 SNOMED -CT ATRIAL FIBRILLATION W/ RVR active 728399094410746 SNOMED-CT TYPE 2 DM active 14881133 SNOMED-CT ESSENTIAL HYPERTENSION active 4326388 0 SNOMED-CT MIXED HYPERLIPIDEMIA active 173442227 SNOMED-CT LESION OF LIVER active 451136832 SNOM ED-CT COUGH active 39830133 SNOMED-CT DYSPNEA active 045278676 SNOMED-CT INFLUENZA 05/06/2023 resolved 2057383 SNOMED-CT Allergies and Adverse Reactions Allergy Substance Reaction Severity Start Date Concern Status Co de Code System No Known Allergies Moderate Active 389710317 SN OMED-CT Plan of Treatment US Echo With Color (52627) 10/20/2024 US Carotid Doppler (28955) 04/03/2024 Digital Tico Screen R Unilateral (27240) 11/10/2024 Encounters Encounter Diagnosis Start Date Code Code Sys [facility] 04/25/2024 [id number] SNOMED-CT Personal Care Team Section
--- OUTSIDE RECORDS SUMMARY | 2024-10-08 13:00 | XMS_ITS ---
Author Organization Unknown Address [address] [place] [phone] Phone Care Team Providers Care Switcher Name Role Phone WILLIAM Rollins Attending Unavailable [...] 208 CVX Pneumococcal conjugate PCV20 , polysaccharide [id number] conjugate, adjuvant, PF 07/16/2023 Completed 216 CVX [...] COMPREHENSIVE METABOLIC PANE L - Collect Date/Time: 04/02/2023 08:06 [facility] ID: [id number] [address] [place], [place], [phone] LOINC: 06091-2 Test Value Unit Reference Range Code Code System Flag FASTING NO BUN 22 mg/dL L=7 H=20 3094-0 LOINC H CREATININE 0.90 mg/dL L=0.52 H=1.04 2160-0 LOINC GLUCOSE 172 mg/dL L=74 H=106 2345-7 LOINC H SODIUM 145 mmol/L L=132 H=144 2951-2 LOINC H POTASSIUM 5.0 mmol/L L=3.5 H=5.1 2823-3 LOINC CHLORIDE 109 mmol/L L=98 H=107 2075-0 LOINC H CO2 25.0 mmol/L L=22.0 H=30.0 8-9 LOINC ANION GAP 16 L=10 H=20 52517-4 LOINC OSMOLALITY 307 mOs/kG L=280 H=296 53785-1 LOINC H BUN/CREAT 24.4 3097-3 LOINC CALCIUM 9.9 mg/dL L=8.3 H=10.5 01036-2 LOINC AST 21 U/L L=15 H=46 1920-8 LOINC ALT 19 U/L L=9 H=72 1742-6 LOINC ALKALINE PHOS 70 U/L L=38 H=126 6768-6 LOINC TOTAL BILI 0.5 mg/dL L=0.2 H=1.3 1975-2 LOINC ALBUMIN 4.1 G/dL L=3.5 H=5.0 1751-7 LOINC TOTAL PROTEIN 7.2 g/L L=6.3 H=8.2 2885-2 LOINC A/G RATIO 1.3 18737-6 LOINC AGE 82 61885-0 LOINC eGFR NON-AFR 63 ml/min eGFR AFR AMER 76 ml/min HGB A1C -GLYCOHEMOGLOBIN - C ollect Date/Time: 04/02/2023 08:06 [facility] ID: [id number] [address] [place], [place], [id number] LOINC: 4548-4 Test Value Unit Reference Range Code Code System Flag HGBA1C 7.4 % 4548-4 LOINC Social History Type Status Start Date End Date Code Code Syst em Smoking History Never smoker (Never Smoked) 855763111 SNOMED CT Sex Female Medications Medication Start Date End Date Route Frequency Dose Code Code System Medication Instructions Home Meds oseltamivir phosphate 75MG Oral Capsule 02/14/2022 05/02/2023 ORAL EVERY 12 HOURS 75 MILLIGRAMS 242539 RxNorm TAKE 75 MILLIGRAMS ORAL EVERY 12 HOURS starting the evening of 02/14/2022 Atorvastatin Calcium 40MG Oral Tablet 02/14/2022 05/03/2023 ORAL ONCE A DAY 40 MILLIGRAMS 885423 RxNorm TAKE 40 MILLIGRAMS ORAL ONCE A DAY Eliquis 5MG Oral Tablet 02/14/2022 Unknown ORAL EVERY 12 HOURS 5 MILLIGRAMS 4827919 RxNorm TAKE 5 MILLIGRAMS ORAL EVERY 12 HOURS HYDROcodone bitartrate-ac etaminophen 5MG-325MG Oral Tablet 02/14/2022 05/02/2023 ORAL NEEDED EVERY 6 HOURS 1 TABLET 710049 RxNorm TAKE 1 TABLET ORAL NEEDED EVERY 6 HOURS Lisinopril 40MG Oral Tablet 02/14/2022 Unknown ORAL TWICE A DAY 40 MILLIGRAMS 379473 RxNorm TAKE 40 MILLIGRAMS ORAL TWICE A DAY metFORMIN HCl 500MG Oral Tablet 02/14/2022 Unknown ORAL TWICE A DAY WITH MEALS 500 MILLIGRAMS 642584 RxNorm TAKE 500 MILLIGRAMS ORAL TWICE A DAY WITH MEALS predniSONE 20MG Oral Tablet 02/14/2022 05/02/2023 BY MOUTH ONCE A DAY 2 TABLET 156709 RxNorm TAKE 2 TABLET BY MOUTH ONCE A DAY x 3 days, then TAKE 1 TABLET BY MOUTH ONCE A DAY x 3 days Aspirin 81MG Oral Tablet, Chewable 05/06/2023 Unknown ORAL ONCE A DAY 81 MILLIGRAMS 927338 RxNorm TAKE 81 MILLIGRAMS ORAL ONCE A DAY Digoxin 0.125MG Oral Tablet 05/06/2023 Unknown ORAL ONCE A DAY 0.25 MILLIGRAMS 033588 RxNorm TAKE 0.25 MILLIGRAMS ORAL ONCE A DAY Furosemide 40MG Oral Tablet 05/06/2023 Unknown ORAL EVERY 48 HOURS 40 MILLIGRAMS 963522 RxNorm TAKE 40 MILLIGRAMS ORAL EVERY 48 HOURS predniSONE 20MG Oral Tablet 05/06/2023 Unknown ORAL ONCE A DAY 40 MILLIGRAMS 184953 RxNorm TAKE 40 MILLIGRAMS ORAL ONCE A DAY Atorvastatin Calcium 40MG Oral Tablet 05/06/2023 Unknown ORAL AT BEDTIME 40 MILLIGRAMS 968775 RxNorm TAKE 40 MILLIGRAMS ORAL AT BEDTIME Albuterol Sulfate HFA 0.09MG/1Actua tion Inhalation Suspension 05/06/2023 Unknown INHALA TION NEEDED EVERY 4 HOURS 2 Puff 6144195 RxNorm 2 Puff INHALATION NEEDED EVERY 4 HOURS Procare Inhaler Spacer Chamber 05/06/2023 Unknown BY MOUTH DIRECTE D 1 APPLICATOR RxNorm TAKE 1 APPLICATOR BY MOUTH DIRECTED Tessalon Perles 100MG Oral Capsule, Liquid Filled 05/06/2023 Unknown BY MOUTH NEEDED 3 TIMES A DAY 1 CAPSULE 014855 RxNorm TAKE 1 CAPSULE BY MOUTH NEEDED [...] Status Code Code System RSV INFECTION active 61671186 SNOMED -CT ATRIAL FIBRILLATION W/ RVR active 780466053466614 SNOMED-CT TYPE 2 DM active 75129055 SNOMED-CT ESSENTIAL HYPERTENSION active 0345747 0 SNOMED-CT MIXED HYPERLIPIDEMIA active 519716887 SNOMED-CT LESION OF LIVER active 090277861 SNOM ED-CT COUGH active 61221058 SNOMED-CT DYSPNEA active 643595334 SNOMED-CT INFLUENZA 05/06/2023 resolved 0547914 SNOMED-CT Allergies and Adverse Reactions Allergy Substance Reaction Severity Start Date Concern Status Co de Code System No Known Allergies Moderate Active 634361420 SN OMED-CT Plan of Treatment US Echo With Color (13790) 10/20/2024 US Carotid Doppler (06833) 04/03/2024 Digital Tico Screen R Unilateral (45489) 11/10/2024 Encounters Encounter Diagnosis Start Date Code Code Sys tem Type 2 diabetes mellitus without complications 024 SNOMED-CT Personal Care Team Section
--- OUTSIDE RECORDS SUMMARY | 2024-10-08 13:00 | XMS_ITS | Clinical Summary ---
Author Organization [facility] Health Address [address] [place] [address] Care Team Providers Care Airport Screener Name Role Phone Unavailable Primary Care Provider Unavailabl e Medications apixaban (ELIQUIS) 5 mg tablet Take 5 mg by mouth in the morning and 5 mg in the evening. Active amitriptyline (ELAVIL) 25 mg tablet Take 50 mg by mouth 1 (one) time each day. Active aspirin 81 mg chewable tablet Chew 81 mg 1 (one) time each day. Active atorvastatin (LIPITOR) 40 mg tablet Take 40 mg by mouth every night. Active baclofen (LIORESAL) 10 mg tablet Take 20 mg by mouth. Active HYDROcodone-abhilash taminophen (NORCO) 5-325 mg tablet Take 1 tablet by mouth every 6 (six) hours if needed. Active lisinopriL (PRINIVIL,ZESTR [place]) 40 mg tablet Take 40 mg by mouth in the morning and at bedtime. Active metFORMIN (GLUCOPHAGE) 500 mg tablet Take 500 mg by mouth. Active predniSONE (DELTASONE) 20 mg tablet TAKE 2 TABLETS BY MOUTH ONCE DAILY FOR 3 DAYS , AND THEN 1 TABLET ONCE DAILY FOR 3 DAYS 02/14/2022 Active Active Problems Problem Noted Date Diagnosed Date Left wrist pain 05/13/2018 Ulnar neuropathy at elbow of left upper extremit y 04/26/2018 Carpal tunnel syndrome, bilateral upper limbs Radiculopathy, cervical region 04/17/2018 History of ischemic stroke in prior three months 09/19/2017 Hyperlipidemia LDL goal <70 09/19/2017 Breast cancer 07/17/2017 Diabetes mellitus 07/17/2017 Cryptogenic stroke 07/16/2017 HTN (hypertension) 07/16/2017 Chronic pain syndrome 03/01/2017 Social History Tobacco Use Types Packs/Day Years Used Date Smoking Tobacco: Never Assessed Comments Unknown Sex and Gender Information Value Date Recorded Sex Assigned at Not on file Legal Sex Female 6:40 AM [facility] Gender Identity Not on file Sexual Orientation Not on file Plan of Treatment Health Maintenance Due Date Last Done Comments Dental Oral Exam 1940 Dental Prophylaxis 1940 Dental X-Ray: Bitewings 1938 Dental X-Ray: Full Mouth 1938 Dental X-Ray: Panoramic 04/14/2025 04/13/2022 Insurance PPO
--- OUTSIDE RECORDS SUMMARY | 2024-10-08 13:00 | XMS_ITS | Encounter Summary ---
Author Organization [facility] Health Address [address] [place] [address] Care Team Providers Care Orthotics Technician Name Role Phone Unavailable Primary Care Provider Unavailabl e Prior Encounters Date Type Department Care Team Description 04/13/2022 Travel 04/13/2022 11:45 AM FOURTH OFFICER Consult [facility] [address] [place] [phone] Susanna Toussaint DDS Plan of Treatment Not on file Procedures Procedure Name Priority Date/Time Associated Diagnosis Comments 9 PLACEMENT OF INTRA-SOCKET BIOLOGICAL DRESSING TO AID IN HEMOSTASIS OR CLOT STABILIZATION, PER SITE Routine 04/13/2022 11:45 AM FOURTH OFFICER 9 EXTRACTION, ERUPTED TOOTH REQUIRING REMOVAL OF BONE AND/OR SECTIONING OF TOOTH Routine 04/13/2022 11:45 AM FOURTH OFFICER OS CONSULT Routine 04/13/2022 11:45 AM FOURTH OFFICER Visit Diagnoses Not on file Insurance PPO
--- OUTSIDE RECORDS SUMMARY | 2024-10-08 13:00 | XMS_ITS ---
Author Organization Unknown Address [address] [place] [address] [phone] Phone Care Team Providers Care Assistant Professor Of Life Sciences Name Role Phone DAJUAN DIAZ Attending Unavailable Immunization Immunization Date Status Additional [...] 208 CVX Pneumococcal conjugate PCV20 , polysaccharide [id number] conjugate, adjuvant, PF 07/16/2023 Completed 216 CVX [...] em Smoking History Never smoker (Never Smoked) [id number] SNOMED CT Sex Female Medications Medication Start Date End Date Route Frequency Dose Code Code System Medication Instructions Home Meds oseltamivir phosphate 75MG Oral Capsule 02/14/2022 05/02/2023 ORAL EVERY 12 HOURS 75 MILLIGRAMS 783743 RxNorm TAKE 75 MILLIGRAMS ORAL EVERY 12 HOURS starting the evening of 02/14/2022 Atorvastatin Calcium 40MG Oral Tablet 02/14/2022 05/03/2023 ORAL ONCE A DAY 40 MILLIGRAMS 942064 RxNorm TAKE 40 MILLIGRAMS ORAL ONCE A DAY Eliquis 5MG Oral Tablet 02/14/2022 Unknown ORAL EVERY 12 HOURS 5 MILLIGRAMS 5554603 RxNorm TAKE 5 MILLIGRAMS ORAL EVERY 12 HOURS HYDROcodone bitartrate-ac etaminophen 5MG-325MG Oral Tablet 02/14/2022 05/02/2023 ORAL NEEDED EVERY 6 HOURS 1 TABLET 935564 RxNorm TAKE 1 TABLET ORAL NEEDED EVERY 6 HOURS Lisinopril 40MG Oral Tablet 02/14/2022 Unknown ORAL TWICE A DAY 40 MILLIGRAMS 459194 RxNorm TAKE 40 MILLIGRAMS ORAL TWICE A DAY metFORMIN HCl 500MG Oral Tablet 02/14/2022 Unknown ORAL TWICE A DAY WITH MEALS 500 MILLIGRAMS 432486 RxNorm TAKE 500 MILLIGRAMS ORAL TWICE A DAY WITH MEALS predniSONE 20MG Oral Tablet 02/14/2022 05/02/2023 BY MOUTH ONCE A DAY 2 TABLET 467830 RxNorm TAKE 2 TABLET BY MOUTH ONCE A DAY x 3 days, then TAKE 1 TABLET BY MOUTH ONCE A DAY x 3 days Aspirin 81MG Oral Tablet, Chewable 05/06/2023 Unknown ORAL ONCE A DAY 81 MILLIGRAMS 280072 RxNorm TAKE 81 MILLIGRAMS ORAL ONCE A DAY Digoxin 0.125MG Oral Tablet 05/06/2023 Unknown ORAL ONCE A DAY 0.25 MILLIGRAMS RxNorm TAKE 0.25 MILLIGRAMS ORAL ONCE A DAY Furosemide 40MG Oral Tablet 05/06/2023 Unknown ORAL EVERY 48 HOURS 40 MILLIGRAMS 732296 RxNorm TAKE 40 MILLIGRAMS ORAL EVERY 48 HOURS predniSONE 20MG Oral Tablet 05/06/2023 Unknown ORAL ONCE A DAY 40 MILLIGRAMS 446003 RxNorm TAKE 40 MILLIGRAMS ORAL ONCE A DAY Atorvastatin Calcium 40MG Oral Tablet 05/06/2023 Unknown ORAL AT BEDTIME 40 MILLIGRAMS 198515 RxNorm TAKE 40 MILLIGRAMS ORAL AT BEDTIME Albuterol Sulfate HFA 0.09MG/1Actua tion Inhalation Suspension 05/06/2023 Unknown INHALA TION NEEDED EVERY 4 HOURS 2 Puff 5857042 RxNorm 2 Puff INHALATION NEEDED EVERY 4 HOURS Procare Inhaler Spacer Chamber 05/06/2023 Unknown BY MOUTH DIRECTE D 1 APPLICATOR RxNorm TAKE 1 APPLICATOR BY MOUTH DIRECTED Tessalon Perles 100MG Oral Capsule, Liquid Filled 05/06/2023 Unknown BY MOUTH NEEDED 3 TIMES A DAY 1 CAPSULE 583144 RxNorm TAKE 1 CAPSULE BY MOUTH NEEDED [...] Status Code Code System RSV INFECTION active 18288070 SNOMED -CT ATRIAL FIBRILLATION W/ RVR active 756549461497333 SNOMED-CT TYPE 2 DM active 80442799 SNOMED-CT ESSENTIAL HYPERTENSION active 2004041 0 SNOMED-CT MIXED HYPERLIPIDEMIA active 609596031 SNOMED-CT LESION OF LIVER active 303386300 SNOM ED-CT COUGH active 65483384 SNOMED-CT DYSPNEA active 825216084 SNOMED-CT INFLUENZA 05/06/2023 resolved 9674903 SNOMED-CT Allergies and Adverse Reactions Allergy Substance Reaction Severity Start Date Concern Status Co de Code System No Known Allergies Moderate Active 033690372 SN OMED-CT Plan of Treatment US Echo With Color (29085) 10/20/2024 US Carotid Doppler (62840) 04/03/2024 Digital Tico Screen R Unilateral (39999) 11/10/2024 Encounters Encounter Diagnosis Start Date Code Code Sys tem Unspecified atrial fibrillation 05/01/2023 SNOMED-CT Personal Care Team Section
--- OUTSIDE RECORDS SUMMARY | 2024-10-08 13:01 | XMS_ITS ---
Author Organization Unknown Address [address] [place] [address] [phone] Phone Care Team Providers Care Ed Manager Name Role Phone WILLIAM Rollins Attending Unavailable [...] 208 CVX Pneumococcal conjugate PCV20 , polysaccharide [id number] conjugate, adjuvant, PF 07/16/2023 Completed 216 CVX [...] mcg/0.5 mL 07/05/2024 Completed 312 CVX Results LIPID PANEL - Collect Date/T french: 03/20/2023 06:59 [facility] ID: [id number] [place], [place], [id number] LOINC: 85948-0 Test Value Unit Reference Range Code Code System Flag FASTING YES CHOLESTEROL 112 mg/dL L=0 H=200 3-3 LOINC TRIGLYCERIDE 81 mg/dL L=0 H=150 2571-8 LOINC HDL 40 mg/dL L=40 H=60 5-9 LOINC LDL 57 mg/dL 2088-1 LOINC MICROALBUMIN - Collect Date/ Time: 03/20/2023 06:56 [facility] ID: [id number] [place], [place], [id number] LOINC: 02158-4 Test Value Unit Reference Range Code Code System Flag MICROALBUMIN 52.3 mg/L L=0.0 H=16.7 88448-4 LOINC H UR CREATININE 162.00 mg/dL L=30.00 H=125 2161-8 LOINC H MA/CR 32.3 mg/gCR Social History Type Status Start Date End Date Code Code Syst em Smoking History Never smoker (Never Smoked) 627861752 SNOMED CT Sex Female Medications Medication Start Date End Date Route Frequency Dose Code Code System Medication Instructions Home Meds oseltamivir phosphate 75MG Oral Capsule 02/14/2022 05/02/2023 ORAL EVERY 12 HOURS 75 MILLIGRAMS 158322 RxNorm TAKE 75 MILLIGRAMS ORAL EVERY 12 HOURS starting the evening of 02/14/2022 Atorvastatin Calcium 40MG Oral Tablet 02/14/2022 05/03/2023 ORAL ONCE A DAY 40 MILLIGRAMS 996513 RxNorm TAKE 40 MILLIGRAMS ORAL ONCE A DAY Eliquis 5MG Oral Tablet 02/14/2022 Unknown ORAL EVERY 12 HOURS 5 MILLIGRAMS 8475687 RxNorm TAKE 5 MILLIGRAMS ORAL EVERY 12 HOURS HYDROcodone bitartrate-ac etaminophen 5MG-325MG Oral Tablet 02/14/2022 05/02/2023 ORAL NEEDED EVERY 6 HOURS 1 TABLET 042805 RxNorm TAKE 1 TABLET ORAL NEEDED EVERY 6 HOURS Lisinopril 40MG Oral Tablet 02/14/2022 Unknown ORAL TWICE A DAY 40 MILLIGRAMS 432482 RxNorm TAKE 40 MILLIGRAMS ORAL TWICE A DAY metFORMIN HCl 500MG Oral Tablet 02/14/2022 Unknown ORAL TWICE A DAY WITH MEALS 500 MILLIGRAMS 724365 RxNorm TAKE 500 MILLIGRAMS ORAL TWICE A DAY WITH MEALS predniSONE 20MG Oral Tablet 02/14/2022 05/02/2023 BY MOUTH ONCE A DAY 2 TABLET 888389 RxNorm TAKE 2 TABLET BY MOUTH ONCE A DAY x 3 days, then TAKE 1 TABLET BY MOUTH ONCE A DAY x 3 days Aspirin 81MG Oral Tablet, Chewable 05/06/2023 Unknown ORAL ONCE A DAY 81 MILLIGRAMS 736211 RxNorm TAKE 81 MILLIGRAMS ORAL ONCE A DAY Digoxin 0.125MG Oral Tablet 05/06/2023 Unknown ORAL ONCE A DAY 0.25 MILLIGRAMS 501619 RxNorm TAKE 0.25 MILLIGRAMS ORAL ONCE A DAY Furosemide 40MG Oral Tablet 05/06/2023 Unknown ORAL EVERY 48 HOURS 40 MILLIGRAMS 893989 RxNorm TAKE 40 MILLIGRAMS ORAL EVERY 48 HOURS predniSONE 20MG Oral Tablet 05/06/2023 Unknown ORAL ONCE A DAY 40 MILLIGRAMS 303227 RxNorm TAKE 40 MILLIGRAMS ORAL ONCE A DAY Atorvastatin Calcium 40MG Oral Tablet 05/06/2023 Unknown ORAL AT BEDTIME 40 MILLIGRAMS 489213 RxNorm TAKE 40 MILLIGRAMS ORAL AT BEDTIME Albuterol Sulfate HFA 0.09MG/1Actua tion Inhalation Suspension 05/06/2023 Unknown INHALA TION NEEDED EVERY 4 HOURS 2 Puff 0807353 RxNorm 2 Puff INHALATION NEEDED EVERY 4 HOURS Procare Inhaler Spacer Chamber 05/06/2023 Unknown BY MOUTH DIRECTE D 1 APPLICATOR RxNorm TAKE 1 APPLICATOR BY MOUTH DIRECTED Tessalon Perles 100MG Oral Capsule, Liquid Filled 05/06/2023 Unknown BY MOUTH NEEDED 3 TIMES A DAY 1 CAPSULE 425991 RxNorm TAKE 1 CAPSULE BY MOUTH NEEDED 3 TIMES A DAY Assessment You had the following problems:RSV INFECTIONATRIAL FIBRILLATION W/ RVRTYPE 2 DMESSENTIAL HYPERTENSIONMIXED HYPERLIPIDEMIALESION OF [facility] Hospital Discharge Instructions Should you have any questions prior to discharge, please contact a member of your healthcare team. If you have left the hospital and have any questions, please contact your primary care physician. Reason For Referral No Data Found Problems Problem Start Date Resolved Date Status Code Code System RSV INFECTION active 12205026 SNOMED -CT ATRIAL FIBRILLATION W/ RVR active 044402449402244 SNOMED-CT TYPE 2 DM active 41518478 SNOMED-CT ESSENTIAL HYPERTENSION active 9269161 0 SNOMED-CT MIXED HYPERLIPIDEMIA active 760162437 SNOMED-CT LESION OF LIVER active 437037806 SNOM ED-CT COUGH active 56850052 SNOMED-CT DYSPNEA active 078590502 SNOMED-CT INFLUENZA 05/06/2023 resolved 8302923 SNOMED-CT Allergies and Adverse Reactions Allergy Substance Reaction Severity Start Date Concern Status Co de Code System No Known Allergies Moderate Active 669914152 SN OMED-CT Plan of Treatment US Echo With Color (23518) 10/20/2024 US Carotid Doppler (14563) 04/03/2024 Digital Tico Screen R Unilateral (60637) 11/10/2024 Encounters Encounter Diagnosis Start Date Code Code Sys tem Type 2 diabetes mellitus without complications 12/26/2 023 SNOMED-CT Personal Care Team Section
--- OUTSIDE RECORDS SUMMARY | 2024-10-08 13:01 | XMS_ITS ---
Author Organization Unknown Address [address] [place] [address] [phone] Phone Care Team Providers Care Ent Consultant Name Role Phone WILLIAM Rollins Attending Unavailable [...] 208 CVX Pneumococcal conjugate PCV20 , polysaccharide [id number] conjugate, adjuvant, PF 07/16/2023 Completed 216 CVX [...] mcg/0.5 mL 07/05/2024 Completed 312 CVX Results HGB A1C -GLYCOHEMOGLOBIN - C ollect Date/Time: 07/04/2023 07:23 [facility] ID: [id number] [address] [place], [place], [id number] LOINC: 4548-4 Test Value Unit Reference Range Code Code System Flag HGBA1C 7.8 % 4548-4 LOINC Social History Type Status Start Date End Date Code Code Syst em Smoking History Never smoker (Never Smoked) 077209149 SNOMED CT Sex Female Medications Medication Start Date End Date Route Frequency Dose Code Code System Medication Instructions Home Meds Eliquis 5MG Oral Tablet 02/14/2022 Unknown ORAL EVERY 12 HOURS 5 MILLIGRAMS 3843946 RxNorm TAKE 5 MILLIGRAMS ORAL EVERY 12 HOURS Lisinopril 40MG Oral Tablet 02/14/2022 Unknown ORAL TWICE A DAY 40 MILLIGRAMS 151435 RxNorm TAKE 40 MILLIGRAMS ORAL TWICE A DAY metFORMIN HCl 500MG Oral Tablet 02/14/2022 Unknown ORAL TWICE A DAY WITH MEALS 500 MILLIGRAMS 725201 RxNorm TAKE 500 MILLIGRAMS ORAL TWICE A DAY WITH MEALS Aspirin 81MG Oral Tablet, Chewable 05/06/2023 Unknown ORAL ONCE A DAY 81 MILLIGRAMS 404042 RxNorm TAKE 81 MILLIGRAMS ORAL ONCE A DAY Digoxin 0.125MG Oral Tablet 05/06/2023 Unknown ORAL ONCE A DAY 0.25 MILLIGRAMS 974203 RxNorm TAKE 0.25 MILLIGRAMS ORAL ONCE A DAY Furosemide 40MG Oral Tablet 05/06/2023 Unknown ORAL EVERY 48 HOURS 40 MILLIGRAMS 782017 RxNorm TAKE 40 MILLIGRAMS ORAL EVERY 48 HOURS predniSONE 20MG Oral Tablet 05/06/2023 Unknown ORAL ONCE A DAY 40 MILLIGRAMS 511561 RxNorm TAKE 40 MILLIGRAMS ORAL ONCE A DAY Atorvastatin Calcium 40MG Oral Tablet 05/06/2023 Unknown ORAL AT BEDTIME 40 MILLIGRAMS 622467 RxNorm TAKE 40 MILLIGRAMS ORAL AT BEDTIME Albuterol Sulfate HFA 0.09MG/1Actu ation Inhalation Suspension 05/06/2023 Unknown INHALATI ON NEEDED EVERY 4 HOURS 2 Puff 9569218 RxNorm 2 Puff INHALATION NEEDED EVERY 4 HOURS Procare Inhaler Spacer Chamber 05/06/2023 Unknown BY MOUTH DIRECTED 1 APPLICATOR RxNorm TAKE 1 APPLICATOR BY MOUTH DIRECTED Tessalon Perles 100MG Oral Capsule, Liquid Filled 05/06/2023 Unknown BY MOUTH NEEDED 3 TIMES A DAY 1 CAPSULE 089723 RxNorm TAKE 1 CAPSULE BY MOUTH NEEDED 3 TIMES A DAY Assessment You had the following problems:RSV INFECTIONATRIAL FIBRILLATION W/ RVRTYPE 2 DMESSENTIAL HYPERTENSIONMIXED HYPERLIPIDEMIALESION OF [facility] Discharge Instructions Should you have any questions prior to discharge, please contact a member of your healthcare team. If you have left the hospital and have any questions, please contact your primary care physician. Reason For Referral No Data Found Problems Problem Start Date Resolved Date Status Code Code System RSV INFECTION active 67225924 SNOMED -CT ATRIAL FIBRILLATION W/ RVR active 618381376912239 SNOMED-CT TYPE 2 DM active 37027801 SNOMED-CT ESSENTIAL HYPERTENSION active 0517158 0 SNOMED-CT MIXED HYPERLIPIDEMIA active 700111859 SNOMED-CT LESION OF LIVER active 136005462 SNOM ED-CT COUGH active 07000228 SNOMED-CT DYSPNEA active 162997974 SNOMED-CT INFLUENZA 05/06/2023 resolved 8486964 SNOMED-CT Allergies and Adverse Reactions Allergy Substance Reaction Severity Start Date Concern Status Co de Code System No Known Allergies Moderate Active 126816976 SN OMED-CT Plan of Treatment US Echo With Color (91186) 10/20/2024 US Carotid Doppler (54550) 04/03/2024 Digital Tico Screen R Unilateral (19671) 11/10/2024 Encounters Encounter Diagnosis Start Date Code Code Sys tem Type 2 diabetes mellitus without complications 024 SNOMED-CT Personal Care Team Section
--- OUTSIDE RECORDS SUMMARY | 2024-10-08 13:01 | XMS_ITS | Patient Health Record ---
Author Organization [employer] [facility] Address [address] [place] [address] Care Team Providers Care Manager Games Name Role Phone EDWARD WAN Unavailable [phone] Matt Dasher Unavailable Unavailable Allergies No Known Allergies Reason For Referral No Information Social History Tobacco Use: Social History Observation Description Date Details (start date - stop date) Never Smoker NA - NA Tobacco Use/Smoking Question Answer Notes Tobacco use: nonsmoker Additional Findings: Tobacco Non-User Current no n-smoker Problems Problem Type SNOMED Code ICD Code Onset Dates Problem Status W/U Status Risk Notes Problem Peripheral circulatory disorder associated with diabetes mellitus (550548679) Type 2 diabetes mellitus with other circulatory complications (E11.59) Active confirmed Problem 19745621 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 Problem Type 2 diabetes mellitus with peripheral angiopathy (926571800) Type 2 diabetes mellitus with diabetic peripheral angiopathy without gangrene, unspecified whether prison insulin use (E11.51) Active confirmed Problem Tinea unguium (874364040) Tinea unguium (B35.1) 08/15/19 Active confirmed Problem Cerebral infarction (753147491) Cerebral infarction, unspecified (I63.9) 10/08/19 Active confirmed Problem Peripheral vascular disease (236793963) Other specified peripheral vascular diseases (I73.89) 10/08/19 Active confirmed Problem 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) 08/15/19 Active confirmed Problem History of malignant neoplasm (299050230) Personal history of malignant neoplasm, unspecified (Z85.9) 08/15/19 Active confirmed Problem Essential hypertension (90737004) Essential (primary) hypertension (I10) 10/08/19 Active confirmed Vital Signs Heart Rate 88 /min 06/16/2024 Respiratory Rate 16 /min 03/07/2024 Height-cm 170.18 cm 06/16/2024 Blood pressure diastolic 85 mm Hg 06/16/2024 Weight-kg 99.79 kg 06/16/2024 Height 67 in 06/16/2024 Blood pressure systolic 128 mm Hg 06/16/2024 Weight 220 lbs 06/16/2024 BMI 34.45 kg/m2 06/16/2024 Encounters Encounter Location Date Provider Diagnosis [address] [address] 03/07/2024 EDWARD COCKAYNE Nail dystrophy L60.3 ; Type 2 diabetes mellitus with diabetic peripheral angiopathy without gangrene, unspecified whether vibration technician insulin use E11.51 and Onychogryphosis L60.[address] [address] 06/16/2024 EDWARD COCKAYNE Nail dystrophy L60.3 ; Type 2 diabetes mellitus with diabetic peripheral angiopathy without gangrene, unspecified whether prison insulin use E11.51 and Onychogryphosis L60.2 Assessments Encounter Date Diagnosis (ICD Code) Assessment Notes Treatment Notes Treatment Clinical Notes Section Notes 03/07/2024 Nail dystrophy (ICD-10 - L60.3) 06/16/2024 Nail dystrophy (ICD-10 - L60.3) 06/16/2024 Type 2 diabetes mellitus with diabetic peripheral angiopathy without gangrene, unspecified whether vibration technician insulin use (ICD-10 - E11.51) We discussed preventative foot care. We discussed preventative foot hygiene. We instructed the patient on how to care for their feet, and to contact the office if any wounds develop or signs of infection arise. Peripheral neuropathy covered:Examinat ion of the patient's sensation shows that there is advanced neuropathy to the extent that care by a non-professional person would put the patient at risk for ulceration, infection and/or amputation. Trimmed 8 nails, without incident. The nails were debrided of all fungal material and debris. Debridement included a reduction in bulk of the nail by use of a sharp small order cutter and/or rotary instrument. Reason for debridement include relief of pain, treatment of infection, temporary removal of an anatomic deformity such as onychauxis or onychocryptosis, exposure of subungual conditions for the purpose of treatment as well as diagnosis, and/or as a prophylactic measure to prevent further problems, such as subungual ulceration in an insensate patient with onychauxis. Antiseptic was applied. Debrided 2 nails. 03/07/2024 Type 2 diabetes mellitus with diabetic peripheral angiopathy without gangrene, unspecified whether prison insulin use (ICD-10 - E11.51) We discussed preventative foot care. We discussed preventative foot hygiene. We instructed the patient on how to care for their feet, and to contact the office if any wounds develop or signs of infection arise. Peripheral neuropathy covered:Examinat ion of the patient's sensation shows that there is advanced neuropathy to the extent that care by a non-professional person would put the patient at risk for ulceration, infection and/or amputation. Trimmed 8 nails, without incident. The nails were debrided of all fungal material and debris. Debridement included a reduction in bulk of the nail by use of a sharp small order cutter and/or rotary instrument. Reason for debridement include relief of pain, treatment of infection, temporary removal of an anatomic deformity such as onychauxis or onychocryptosis, exposure of subungual conditions for the purpose of treatment as well as diagnosis, and/or as a prophylactic measure to prevent further problems, such as subungual ulceration in an insensate patient with onychauxis. Antiseptic was applied. Debrided 2 nails. 03/07/2024 Onychogryphosis (ICD-10 - L60.2) 06/16/2024 Onychogryphosis (ICD-10 - L60.2) Plan Of Treatment Next Appt Details Provider Name:EDWARD NELSON, 11/03/2024 03:45:00 PM, [address] [place], [address], Insurance Providers Payer Name Payer Address Payer Phone Subscriber Number Group Number Insured Name Patient Relationship to Insured Coverage Start Date Coverage End Date [facility] MEDICARE COMPLETE [address] [address] [place] [address] [id number] YE PINEDA Self - patient is the insured [place] [employer] OF PUBLIC A[employer] [address] [address] [place] [address] [id number] YE PINEDA Self - patient is the insured 9 Medical (General) History Medical History History ICD Code Other specified peripheral vascular dise ases I73.89 Type 2 diabetes mellitus with other circ ulatory complications E11.59
--- OUTSIDE RECORDS SUMMARY | 2024-10-08 13:01 | XMS_ITS ---
Author Organization Unknown Address [address] [place] [address] [phone] Phone Care Team Providers Care Head Start Teacher Name Role Phone ARELY YO Attending Unavailable [...] 208 CVX Pneumococcal conjugate PCV20 , polysaccharide [id number] conjugate, adjuvant, PF 07/16/2023 Completed 216 CVX [...] em Smoking History Never smoker (Never Smoked) 993653800 SNOMED CT Sex Female Medications Medication Start Date End Date Route Frequency Dose Code Code System Medication Instructions Home Meds Eliquis 5MG Oral Tablet 02/14/2022 Unknown ORAL EVERY 12 HOURS 5 MILLIGRAMS 5667310 RxNorm TAKE 5 MILLIGRAMS ORAL EVERY 12 HOURS Lisinopril 40MG Oral Tablet 02/14/2022 Unknown ORAL TWICE A DAY 40 MILLIGRAMS 273684 RxNorm TAKE 40 MILLIGRAMS ORAL TWICE A DAY metFORMIN HCl 500MG Oral Tablet 02/14/2022 Unknown ORAL TWICE A DAY WITH MEALS 500 MILLIGRAMS 071737 RxNorm TAKE 500 MILLIGRAMS ORAL TWICE A DAY WITH MEALS Aspirin 81MG Oral Tablet, Chewable 05/06/2023 Unknown ORAL ONCE A DAY 81 MILLIGRAMS 280793 RxNorm TAKE 81 MILLIGRAMS ORAL ONCE A DAY Digoxin 0.125MG Oral Tablet 05/06/2023 Unknown ORAL ONCE A DAY 0.25 MILLIGRAMS RxNorm TAKE 0.25 MILLIGRAMS ORAL ONCE A DAY Furosemide 40MG Oral Tablet 05/06/2023 Unknown ORAL EVERY 48 HOURS 40 MILLIGRAMS 168977 RxNorm TAKE 40 MILLIGRAMS ORAL EVERY 48 HOURS predniSONE 20MG Oral Tablet 05/06/2023 Unknown ORAL ONCE A DAY 40 MILLIGRAMS 450357 RxNorm TAKE 40 MILLIGRAMS ORAL ONCE A DAY Atorvastatin Calcium 40MG Oral Tablet 05/06/2023 Unknown ORAL AT BEDTIME 40 MILLIGRAMS 182671 RxNorm TAKE 40 MILLIGRAMS ORAL AT BEDTIME Albuterol Sulfate HFA 0.09MG/1Actu ation Inhalation Suspension 05/06/2023 Unknown INHALATI ON NEEDED EVERY 4 HOURS 2 Puff 1000050 RxNorm 2 Puff INHALATION NEEDED EVERY 4 HOURS Procare Inhaler Spacer Chamber 05/06/2023 Unknown BY MOUTH DIRECTED 1 APPLICATOR RxNorm TAKE 1 APPLICATOR BY MOUTH DIRECTED Tessalon Perles 100MG Oral Capsule, Liquid Filled 05/06/2023 Unknown BY MOUTH NEEDED 3 TIMES A DAY 1 CAPSULE 789517 RxNorm TAKE 1 CAPSULE BY MOUTH NEEDED [...] Status Code Code System RSV INFECTION active 43931811 SNOMED -CT ATRIAL FIBRILLATION W/ RVR active 162574013244634 SNOMED-CT TYPE 2 DM active 49316354 SNOMED-CT ESSENTIAL HYPERTENSION active 9820033 0 SNOMED-CT MIXED HYPERLIPIDEMIA active 657053162 SNOMED-CT LESION OF LIVER active 847832421 SNOM ED-CT COUGH active 79674940 SNOMED-CT DYSPNEA active 027107667 SNOMED-CT INFLUENZA 05/06/2023 resolved 1956790 SNOMED-CT Allergies and Adverse Reactions Allergy Substance Reaction Severity Start Date Concern Status Co de Code System No Known Allergies Moderate Active 849334013 SN OMED-CT Plan of Treatment US Echo With Color (80958) 10/20/2024 US Carotid Doppler (51657) 04/03/2024 Digital Tico Screen R Unilateral (60644) 11/10/2024 Encounters Encounter Diagnosis Start Date Code Code Sys tem Pain in left hand 04/29/2024 SNOMED-CT Personal Care Team Section
--- OUTSIDE RECORDS SUMMARY | 2024-10-08 13:02 | XMS_ITS ---
Author Organization Unknown Address [address] [place] [phone] Phone Care Team Providers Care [employer] Operations Manager Name Role Phone JOON DAVEY Attending Unavailable [...] 208 CVX Pneumococcal conjugate PCV20 , polysaccharide RUO515 conjugate, adjuvant, PF 07/16/2023 Completed 216 CVX [...] em Smoking History Never smoker (Never Smoked) [id number] SNOMED CT Sex Female Medications Medication Start Date End Date Route Frequency Dose Code Code System Medication Instructions Home Meds Eliquis 5MG Oral Tablet 02/14/2022 Unknown ORAL EVERY 12 HOURS 5 MILLIGRAMS [id number] RxNorm TAKE 5 MILLIGRAMS ORAL EVERY 12 HOURS Lisinopril 40MG Oral Tablet 02/14/2022 Unknown ORAL TWICE A DAY 40 MILLIGRAMS 962925 RxNorm TAKE 40 MILLIGRAMS ORAL TWICE A DAY metFORMIN HCl 500MG Oral Tablet 02/14/2022 Unknown ORAL TWICE A DAY WITH MEALS 500 MILLIGRAMS 467848 RxNorm TAKE 500 MILLIGRAMS ORAL TWICE A DAY WITH MEALS Aspirin 81MG Oral Tablet, Chewable 05/06/2023 Unknown ORAL ONCE A DAY 81 MILLIGRAMS 392929 RxNorm TAKE 81 MILLIGRAMS ORAL ONCE A DAY Digoxin 0.125MG Oral Tablet 05/06/2023 Unknown ORAL ONCE A DAY 0.25 MILLIGRAMS RxNorm TAKE 0.25 MILLIGRAMS ORAL ONCE A DAY Furosemide 40MG Oral Tablet 05/06/2023 Unknown ORAL EVERY 48 HOURS 40 MILLIGRAMS 011934 RxNorm TAKE 40 MILLIGRAMS ORAL EVERY 48 HOURS predniSONE 20MG Oral Tablet 05/06/2023 Unknown ORAL ONCE A DAY 40 MILLIGRAMS 160770 RxNorm TAKE 40 MILLIGRAMS ORAL ONCE A DAY Atorvastatin Calcium 40MG Oral Tablet 05/06/2023 Unknown ORAL AT BEDTIME 40 MILLIGRAMS 750792 RxNorm TAKE 40 MILLIGRAMS ORAL AT BEDTIME Albuterol Sulfate HFA 0.09MG/1Actu ation Inhalation Suspension 05/06/2023 Unknown INHALATI ON NEEDED EVERY 4 HOURS 2 Puff 3980046 RxNorm 2 Puff INHALATION NEEDED EVERY 4 HOURS Procare Inhaler Spacer Chamber 05/06/2023 Unknown BY MOUTH DIRECTED 1 APPLICATOR RxNorm TAKE 1 APPLICATOR BY MOUTH DIRECTED Tessalon Perles 100MG Oral Capsule, Liquid Filled 05/06/2023 Unknown BY MOUTH NEEDED 3 TIMES A DAY 1 CAPSULE 787433 RxNorm TAKE 1 CAPSULE BY MOUTH NEEDED [...] Status Code Code System RSV INFECTION active 51202187 SNOMED -CT ATRIAL FIBRILLATION W/ RVR active [id number] SNOMED-CT TYPE 2 DM active 63541765 SNOMED-CT ESSENTIAL HYPERTENSION active 2065815 0 SNOMED-CT MIXED HYPERLIPIDEMIA active 914671257 SNOMED-CT LESION OF LIVER active 069073563 SNOM ED-CT COUGH active 28664036 SNOMED-CT DYSPNEA active 554552887 SNOMED-CT INFLUENZA 05/06/2023 resolved 3906918 SNOMED-CT Allergies and Adverse Reactions Allergy Substance Reaction Severity Start Date Concern Status Co de Code System No Known Allergies Moderate Active 711178503 SN OMED-CT Plan of Treatment US Echo With Color (66722) 10/20/2024 US Carotid Doppler (28323) 04/03/2024 Digital [place] Screen R Unilateral (55652) 11/10/2024 Encounters Encounter Diagnosis Start Date Code Code Sys tem Type 2 diabetes mellitus 05/30/2024 [id number] SNO MED-CT Personal Care Team Section
--- OUTSIDE RECORDS SUMMARY | 2024-10-08 13:02 | XMS_ITS ---
Author Organization Unknown Address [address] [place] [phone] Phone Care Team Providers Care Rib Bender Name Role Phone Unavailable [employer] Unavailable ARLINE GONZALEZ Attending Unavailable WILLIAM Rollins Primary Unavailable ARLINE GONZALEZ Transferring Provider Immunization Immunization Date Status Additional Notes Code [...] 208 CVX Pneumococcal conjugate PCV20 , polysaccharide XNA900 conjugate, adjuvant, PF 07/16/2023 Completed 216 CVX [...] mcg/0.5 mL 07/05/2024 Completed 312 CVX Results BEDSIDE GLUCOSE - Collect Da te/Time: 05/06/2023 11:03 [facility] ID: [id number] [address] [place] [address], [phone] LOINC: 31073-4 Test Value Unit Reference Range Code Code System Flag BEDSIDE GLUCOSE 266 mg/dl L=74 H=106 83700-6 LOINC H DAILY BASIC METABOLIC PANEL - Collect Date/Time: 05/06/2023 06:15 [facility] ID: [id number] [place] [address], [phone] LOINC: 58857-5 Test Value Unit Reference Range Code Code System Flag FASTING? UNKNOWN BUN 37 mg/dL L=7 H=20 3094-0 LOINC H CREATININE 0.90 mg/dL L=0.52 H=1.04 2160-0 LOINC GLUCOSE 217 mg/dL L=74 H=106 2345-7 LOINC H CALCIUM 9.2 mg/dL L=8.3 H=10.5 46095-0 LOINC SODIUM 140 mmol/L L=132 H=144 2951-2 LOINC POTASSIUM 4.8 mmol/L L=3.5 H=5.1 2823-3 LOINC CHLORIDE 103 mmol/L L=98 H=107 2075-0 LOINC CO2 33.0 mmol/L L=22.0 H=30.0 8-9 LOINC H ANION GAP 9 L=10 H=20 42311-2 LOINC L BUN/CREAT 41.1 3097-3 LOINC AGE 82 35681-5 LOINC eGFR NON-AFR 63 ml/min eGFR AFR AMER 76 ml/min PRO BNP - Collect Date/Time: 05/06/2023 06:15 [facility] ID: [id number] [address] [place], [place], [phone] LOINC: 22903-9 Test Value Unit Reference Range Code Code System Flag Pro BNP2 3340 pg/mL L=0 F=9008 98825-6 LOINC H DAILY CBC W/DIFF - Collect D ate/Time: 05/06/2023 06:15 [facility] ID: [id number] [address] [place] [address], [phone] LOINC: Test Value Unit Reference Range Code Code System Flag WBC 10.9 10^3uL L=4.8 H=10.8 H RBC 4.48 10^6uL L=4.20 H=5.40 HEMOGLOBIN 11.5 g/dL L=12.0 H=16.0 718-7 LOINC L HEMATOCRIT 37.8 VOL% L=37.0 H=47.0 4544-3 LOINC MCV 84.4 fL L=81.0 H=99.0 MCH 25.7 pg L=27.0 H=32.0 L MCHC 30.4 g/dL L=32.0 H=36.0 L RDW 16.7 % L=11.7 H=15.5 H PLATELETS 242 10^3uL L=100 H=400 94259-1 LOINC %GRAN 87.2 % L=40.0 H=70.0 38665-4 LOINC H %LYMPH 7.4 % L=20.0 H=45.0 736-9 LOINC L %MONO 4.3 % L=2.0 H=10.0 36831-5 LOINC %EOS 0.0 % L=0.0 H=6.0 713-8 LOINC %BASO 0.1 % L=0.0 H=3.0 706-2 LOINC %IM GRANS 1.0 % L=0.0 H=5.0 82902-5 LOINC #NEUT 9.5 10^3uL L=1.9 H=7.6 17151-3 LOINC H #LYMPH 0.8 10^3uL L=0.9 H=4.9 78100-2 LOINC L #MONO 0.5 10^3uL L=0.1 H=0.9 11007-2 LOINC #EOS 0.0 10^3uL L=0.0 H=0.6 712-0 LOINC #BASO 0.01 10^3uL L=0.00 H=0.10 93380-5 LOINC #IM GRANS 0.1 10^3uL L=0.0 H=7.0 98955-0 LOINC %NRB 0.0 L=0.0 H=0.2 51138-5 LOINC #NRB 0.000 L=0.000 H=0.012 88811-9 LOINC MANUAL DIFF NOT INDICATED RBC MORPH NOT INDICATED BEDSIDE GLUCOSE - Collect Da te/Time: 05/06/2023 05:50 [facility] ID: [id number] [address] [place], [place], [phone] LOINC: 50391-7 Test Value Unit Reference Range Code Code System Flag BEDSIDE GLUCOSE 198 mg/dl L=74 H=106 45195-1 LOINC H BEDSIDE GLUCOSE - Collect Da te/Time: 05/05/2023 20:23 [facility] ID: [id number] [address] [place], [place], [phone] LOINC: 92069-7 Test Value Unit Reference Range Code Code System Flag BEDSIDE GLUCOSE 269 mg/dl L=74 H=106 40402-6 LOINC H BEDSIDE GLUCOSE - Collect Da te/Time: 05/05/2023 16:50 [facility] ID: [id number] [address] [place] [address], [id number] LOINC: 61808-4 Test Value Unit Reference Range Code Code System Flag BEDSIDE GLUCOSE 334 mg/dl L=74 H=106 84238-9 LOINC H BEDSIDE GLUCOSE - Collect Da te/Time: 05/05/2023 11:57 [facility] ID: [id number] [address] [place] [address], [id number] LOINC: 62079-6 Test Value Unit Reference Range Code Code System Flag BEDSIDE GLUCOSE 265 mg/dl L=74 H=106 50306-1 LOINC H BEDSIDE GLUCOSE - Collect Da te/Time: 05/05/2023 06:07 [facility] ID: [id number] [address] [place] [address], [phone] LOINC: 99655-5 Test Value Unit Reference Range Code Code System Flag BEDSIDE GLUCOSE 179 mg/dl L=74 H=106 79487-2 LOINC H DAILY BASIC METABOLIC PANEL - Collect Date/Time: 05/05/2023 05:51 [facility] ID: [id number] [address] [place] [address], [id number] LOINC: 72727-9 Test Value Unit Reference Range Code Code System Flag FASTING? UNKNOWN BUN 40 mg/dL L=7 H=20 3094-0 LOINC H CREATININE 0.90 mg/dL L=0.52 H=1.04 2160-0 LOINC GLUCOSE 217 mg/dL L=74 H=106 2345-7 LOINC H CALCIUM 9.3 mg/dL L=8.3 H=10.5 44103-3 LOINC SODIUM 139 mmol/L L=132 H=144 2951-2 LOINC POTASSIUM 4.9 mmol/L L=3.5 H=5.1 2823-3 LOINC CHLORIDE 104 mmol/L L=98 H=107 2075-0 LOINC CO2 28.0 mmol/L L=22.0 H=30.0 2028-9 LOINC ANION GAP 12 L=10 H=20 41970-3 LOINC BUN/CREAT 44.4 3097-3 LOINC AGE 82 12825-6 LOINC eGFR NON-AFR 63 ml/min eGFR AFR AMER 76 ml/min DAILY CBC W/DIFF - Collect D ate/Time: 05/05/2023 05:51 [facility] ID: [id number] [address] [place], [place], [phone] LOINC: Test Value Unit Reference Range Code Code System Flag WBC 11.0 10^3uL L=4.8 H=10.8 H RBC 4.46 10^6uL L=4.20 H=5.40 HEMOGLOBIN 11.4 g/dL L=12.0 H=16.0 718-7 LOINC L HEMATOCRIT 37.2 VOL% L=37.0 H=47.0 4544-3 LOINC MCV 83.4 fL L=81.0 H=99.0 MCH 25.6 pg L=27.0 H=32.0 L MCHC 30.6 g/dL L=32.0 H=36.0 L RDW 16.7 % L=11.7 H=15.5 H PLATELETS 235 10^3uL L=100 H=400 15593-9 LOINC %GRAN 87.5 % L=40.0 H=70.0 70615-0 LOINC H %LYMPH 8.0 % L=20.0 H=45.0 736-9 LOINC L %MONO 3.9 % L=2.0 H=10.0 88316-5 LOINC %EOS 0.0 % L=0.0 H=6.0 713-8 LOINC %BASO 0.1 % L=0.0 H=3.0 706-2 LOINC %IM GRANS 0.5 % L=0.0 H=5.0 69074-6 LOINC #NEUT 9.6 10^3uL L=1.9 H=7.6 11616-2 LOINC H #LYMPH 0.9 10^3uL L=0.9 H=4.9 49003-9 LOINC #MONO 0.4 10^3uL L=0.1 H=0.9 00440-2 LOINC #EOS 0.0 10^3uL L=0.0 H=0.6 712-0 LOINC #BASO 0.01 10^3uL L=0.00 H=0.10 40564-4 LOINC #IM GRANS 0.1 10^3uL L=0.0 H=7.0 56940-4 LOINC %NRB 0.0 L=0.0 H=0.2 89219-2 LOINC #NRB 0.000 L=0.000 H=0.012 16110-8 LOINC MANUAL DIFF NOT INDICATED RBC MORPH NOT INDICATED PRO BNP - Collect Date/Time: 05/05/2023 05:51 [facility] ID: [id number] [address] [place] [address], [id number] LOINC: 27518-5 Test Value Unit Reference Range Code Code System Flag Pro BNP2 4470 pg/mL L=0 R=2791 20735-9 LOINC H BEDSIDE GLUCOSE - Collect Da te/Time: 05/04/2023 20:33 [facility] ID: [id number] [address] [place] [address], [phone] LOINC: 33207-3 Test Value Unit Reference Range Code Code System Flag BEDSIDE GLUCOSE 190 mg/dl L=74 H=106 74793-0 LOINC H BEDSIDE GLUCOSE - Collect Da te/Time: 05/04/2023 17:09 [facility] ID: [id number] [address] [place], [place], [phone] LOINC: 09168-7 Test Value Unit Reference Range Code Code System Flag BEDSIDE GLUCOSE 252 mg/dl L=74 H=106 92579-2 LOINC H BEDSIDE GLUCOSE - Collect Da te/Time: 05/04/2023 12:01 [facility] ID: [id number] [address] [place], [place], [phone] LOINC: 87565-1 Test Value Unit Reference Range Code Code System Flag BEDSIDE GLUCOSE 262 mg/dl L=74 H=106 45242-6 LOINC H DAILY BASIC METABOLIC PANEL - Collect Date/Time: 05/04/2023 06:25 [facility] ID: [id number] [address] [place], [place], [phone] LOINC: 22421-2 Test Value Unit Reference Range Code Code System Flag FASTING? UNKNOWN BUN 43 mg/dL L=7 H=20 3094-0 LOINC H CREATININE 0.90 mg/dL L=0.52 H=1.04 2160-0 LOINC GLUCOSE 215 mg/dL L=74 H=106 2345-7 LOINC H CALCIUM 9.7 mg/dL L=8.3 H=10.5 54381-8 LOINC SODIUM 139 mmol/L L=132 H=144 2951-2 LOINC POTASSIUM 5.8 mmol/L L=3.5 H=5.1 2823-3 LOINC H CHLORIDE 102 mmol/L L=98 H=107 2075-0 LOINC CO2 29.0 mmol/L L=22.0 H=30.0 2028-9 LOINC ANION GAP 14 L=10 H=20 07814-6 LOINC BUN/CREAT 47.8 3097-3 LOINC AGE 82 25800-0 LOINC eGFR NON-AFR 63 ml/min eGFR AFR AMER 76 ml/min DAILY CBC W/DIFF - Collect D ate/Time: 05/04/2023 06:25 [facility] ID: [id number] [address] [place], [place], [phone] LOINC: Test Value Unit Reference Range Code Code System Flag WBC 12.3 10^3uL L=4.8 H=10.8 H RBC 4.38 10^6uL L=4.20 H=5.40 HEMOGLOBIN 11.3 g/dL L=12.0 H=16.0 718-7 LOINC L HEMATOCRIT 37.7 VOL% L=37.0 H=47.0 4544-3 LOINC MCV 86.1 fL L=81.0 H=99.0 MCH 25.8 pg L=27.0 H=32.0 L MCHC 30.0 g/dL L=32.0 H=36.0 L RDW 16.7 % L=11.7 H=15.5 H PLATELETS 245 10^3uL L=100 H=400 48816-4 LOINC %GRAN 88.5 % L=40.0 H=70.0 18143-5 LOINC H %LYMPH 6.7 % L=20.0 H=45.0 736-9 LOINC L %MONO 4.2 % L=2.0 H=10.0 91285-3 LOINC %EOS 0.0 % L=0.0 H=6.0 713-8 LOINC %BASO 0.1 % L=0.0 H=3.0 706-2 LOINC %IM GRANS 0.5 % L=0.0 H=5.0 25220-8 LOINC #NEUT 10.9 10^3uL L=1.9 H=7.6 24696-5 LOINC H #LYMPH 0.8 10^3uL L=0.9 H=4.9 23902-4 LOINC L #MONO 0.5 10^3uL L=0.1 H=0.9 02295-9 LOINC #EOS 0.0 10^3uL L=0.0 H=0.6 712-0 LOINC #BASO 0.01 10^3uL L=0.00 H=0.10 33565-9 LOINC #IM GRANS 0.1 10^3uL L=0.0 H=7.0 24006-0 LOINC %NRB 0.0 L=0.0 H=0.2 45166-3 LOINC #NRB 0.000 L=0.000 H=0.012 46805-6 LOINC MANUAL DIFF NOT INDICATED RBC MORPH NOT INDICATED BEDSIDE GLUCOSE - Collect Da te/Time: 05/04/2023 05:39 [facility] ID: [id number] [address] [place] [address], [id number] LOINC: 85742-4 Test Value Unit Reference Range Code Code System Flag BEDSIDE GLUCOSE 226 mg/dl L=74 H=106 32596-8 LOINC H BEDSIDE GLUCOSE - Collect Da te/Time: 05/03/2023 20:23 [facility] ID: [id number] [address] [place] [address], [id number] LOINC: 72523-6 Test Value Unit Reference Range Code Code System Flag BEDSIDE GLUCOSE 242 mg/dl L=74 H=106 33466-8 LOINC H BEDSIDE GLUCOSE - Collect Da te/Time: 05/03/2023 17:14 [facility] ID: [id number] [address] [place] [address], [id number] LOINC: 45257-4 Test Value Unit Reference Range Code Code System Flag BEDSIDE GLUCOSE 242 mg/dl L=74 H=106 09196-5 LOINC H BEDSIDE GLUCOSE - Collect Da te/Time: 05/03/2023 11:57 [facility] ID: [id number] [address] [place] [address], [phone] LOINC: 14461-8 Test Value Unit Reference Range Code Code System Flag BEDSIDE GLUCOSE 231 mg/dl L=74 H=106 84683-7 LOINC H PRO BNP - Collect Date/Time: 05/03/2023 06:58 [facility] ID: [id number] [address] [place], [place], [phone] LOINC: 84898-6 Test Value Unit Reference Range Code Code System Flag Pro BNP2 3890 pg/mL L=0 V=2733 63998-3 LOINC H TROPONIN LEVEL - Collect Robson e/Time: 05/03/2023 06:58 [facility] ID: [id number] [address] [place], [place], [phone] LOINC: 54632-4 Test Value Unit Reference Range Code Code System Flag TROPONIN 0.123 ng/mL L=0.000 H=0.033 42102-0 LOINC CALLED TO: CINDA Catalan AT: 0737 BY: SD DAILY BASIC METABOLIC PANEL - Collect Date/Time: 05/03/2023 06:58 [facility] ID: [id number] [address] [place], [place], [id number] LOINC: 68060-3 Test Value Unit Reference Range Code Code System Flag FASTING? UNKNOWN BUN 40 mg/dL L=7 H=20 3094-0 LOINC H CREATININE 0.90 mg/dL L=0.52 H=1.04 2160-0 LOINC GLUCOSE 210 mg/dL L=74 H=106 2345-7 LOINC H CALCIUM 9.4 mg/dL L=8.3 H=10.5 13619-3 LOINC SODIUM 139 mmol/L L=132 H=144 2951-2 LOINC POTASSIUM 5.2 mmol/L L=3.5 H=5.1 2823-3 LOINC H CHLORIDE 108 mmol/L L=98 H=107 2075-0 LOINC H CO2 20.0 mmol/L L=22.0 H=30.0 2028-9 LOINC L ANION GAP 16 L=10 H=20 80877-5 LOINC BUN/CREAT 44.4 3097-3 LOINC AGE 82 85635-4 LOINC eGFR NON-AFR 63 ml/min eGFR AFR AMER 76 ml/min DAILY CBC W/DIFF - Collect D ate/Time: 05/03/2023 06:58 [facility] ID: [id number] [address] [place], [place], [phone] LOINC: Test Value Unit Reference Range Code Code System Flag WBC 11.3 10^3uL L=4.8 H=10.8 H RBC 4.41 10^6uL L=4.20 H=5.40 HEMOGLOBIN 11.3 g/dL L=12.0 H=16.0 718-7 LOINC L HEMATOCRIT 37.7 VOL% L=37.0 H=47.0 4544-3 LOINC MCV 85.5 fL L=81.0 H=99.0 MCH 25.6 pg L=27.0 H=32.0 L MCHC 30.0 g/dL L=32.0 H=36.0 L RDW 16.9 % L=11.7 H=15.5 H PLATELETS 236 10^3uL L=100 H=400 19715-9 LOINC %GRAN 88.5 % L=40.0 H=70.0 96628-3 LOINC H %LYMPH 7.1 % L=20.0 H=45.0 736-9 LOINC L %MONO 3.8 % L=2.0 H=10.0 76194-9 LOINC %EOS 0.1 % L=0.0 H=6.0 713-8 LOINC %BASO 0.1 % L=0.0 H=3.0 706-2 LOINC %IM GRANS 0.4 % L=0.0 H=5.0 76354-1 LOINC #NEUT 10.0 10^3uL L=1.9 H=7.6 30686-8 LOINC H #LYMPH 0.8 10^3uL L=0.9 H=4.9 96622-8 LOINC L #MONO 0.4 10^3uL L=0.1 H=0.9 43147-4 LOINC #EOS 0.0 10^3uL L=0.0 H=0.6 712-0 LOINC #BASO 0.01 10^3uL L=0.00 H=0.10 40919-2 LOINC #IM GRANS 0.0 10^3uL L=0.0 H=7.0 34468-2 LOINC %NRB 0.0 L=0.0 H=0.2 23599-4 LOINC #NRB 0.000 L=0.000 H=0.012 53602-5 LOINC MANUAL DIFF NOT INDICATED RBC MORPH NOT INDICATED BEDSIDE GLUCOSE - Collect Da te/Time: 05/03/2023 06:21 [facility] ID: [id number] [address] [place] [address], [id number] LOINC: 92440-7 Test Value Unit Reference Range Code Code System Flag BEDSIDE GLUCOSE 202 mg/dl L=74 H=106 86351-2 LOINC H BEDSIDE GLUCOSE - Collect Da te/Time: 05/02/2023 20:23 [facility] ID: [id number] [address] [place] [address], [id number] LOINC: 30936-6 Test Value Unit Reference Range Code Code System Flag BEDSIDE GLUCOSE 278 mg/dl L=74 H=106 09403-0 LOINC H TROPONIN LEVEL - Collect Robson e/Time: 05/02/2023 19:38 [facility] ID: [id number] [address] [place] [address], [id number] LOINC: 50899-7 Test Value Unit Reference Range Code Code System Flag TROPONIN 0.118 ng/mL L=0.000 H=0.033 78761-5 LOINC H BEDSIDE GLUCOSE - Collect Da te/Time: 05/02/2023 17:16 [facility] ID: [id number] [address] [place] [address], [id number] LOINC: 78338-8 Test Value Unit Reference Range Code Code System Flag BEDSIDE GLUCOSE 248 mg/dl L=74 H=106 70916-6 LOINC H BEDSIDE GLUCOSE - Collect Da te/Time: 05/02/2023 11:22 [facility] ID: [id number] [address] [place], [place], [phone] LOINC: 29717-0 Test Value Unit Reference Range Code Code System Flag BEDSIDE GLUCOSE 246 mg/dl L=74 H=106 01961-2 LOINC H BASIC METABOLIC PANEL - Jaren ect Date/Time: 05/02/2023 06:37 [facility] ID: [id number] [address] [place] [address], [id number] LOINC: 70060-2 Test Value Unit Reference Range Code Code System Flag FASTING YES BUN 25 mg/dL L=7 H=20 3094-0 LOINC H CREATININE 0.80 mg/dL L=0.52 H=1.04 2160-0 LOINC GLUCOSE 192 mg/dL L=74 H=106 2345-7 LOINC H CALCIUM 9.7 mg/dL L=8.3 H=10.5 79322-0 LOINC SODIUM 140 mmol/L L=132 H=144 2951-2 LOINC POTASSIUM 4.9 mmol/L L=3.5 H=5.1 2823-3 LOINC CHLORIDE 107 mmol/L L=98 H=107 2075-0 LOINC CO2 24.0 mmol/L L=22.0 H=30.0 2028-9 LOINC ANION GAP 14 L=10 H=20 21288-7 LOINC BUN/CREAT 31.3 3097-3 LOINC AGE 82 35878-6 LOINC eGFR NON-AFR 73 ml/min eGFR AFR AMER 88 ml/min TROPONIN LEVEL - Collect Robson e/Time: 05/02/2023 06:37 [facility] ID: [id number] [address] [place] [address], [id number] LOINC: 77235-3 Test Value Unit Reference Range Code Code System Flag TROPONIN 0.116 ng/mL L=0.000 H=0.033 81136-7 LOINC H TSH / REFLEX FT4 - Collect D ate/Time: 05/02/2023 06:37 [facility] ID: [id number] [address] [place], [place], [phone] LOINC: Test Value Unit Reference Range Code Code System Flag TSH 0.539 uIU/L L=0.470 H=4.680 17503-2 LOINC CBC W/ DIFF - Collect Date/T french: 05/02/2023 06:37 [facility] ID: [id number] [address] [place], [place], [phone] LOINC: 98678-7 Test Value Unit Reference Range Code Code System Flag WBC 5.3 10^3uL L=4.8 H=10.8 RBC 4.45 10^6uL L=4.20 H=5.40 HEMOGLOBIN 11.5 g/dL L=12.0 H=16.0 718-7 LOINC L HEMATOCRIT 37.8 VOL% L=37.0 H=47.0 4544-3 LOINC MCV 84.9 fL L=81.0 H=99.0 MCH 25.8 pg L=27.0 H=32.0 L MCHC 30.4 g/dL L=32.0 H=36.0 L PLATELETS 231 10^3uL L=100 H=400 95105-2 LOINC RDW 16.8 % L=11.7 H=15.5 H %GRAN 81.3 % L=40.0 H=70.0 57425-7 LOINC H %LYMPH 14.3 % L=20.0 H=45.0 736-9 LOINC L %MONO 3.8 % L=2.0 H=10.0 50000-4 LOINC %EOS 0.0 % L=0.0 H=6.0 713-8 LOINC %BASO 0.2 % L=0.0 H=3.0 706-2 LOINC #NEUT 4.3 10^3uL L=1.9 H=7.6 81156-5 LOINC #LYMPH 0.8 10^3uL L=0.9 H=4.9 99762-9 LOINC L #MONO 0.2 10^3uL L=0.1 H=0.9 93747-9 LOINC #EOS 0.0 10^3uL L=0.0 H=0.6 712-0 LOINC #BASO 0.01 10^3uL L=0.00 H=0.10 02738-1 LOINC #IM GRANS 0.0 10^3uL L=0.0 H=7.0 74973-9 LOINC %IM GRANS 0.4 % L=0.0 H=5.0 40448-1 LOINC %NRB 0.0 L=0.0 H=0.2 13962-9 LOINC #NRB 0.000 L=0.000 H=0.012 75890-6 LOINC MANUAL DIFF NOT INDICATED RBC MORPH NOT INDICATED BEDSIDE GLUCOSE - Collect Da te/Time: 05/02/2023 06:19 [facility] ID: [id number] [address] [place] [address], [id number] LOINC: 18137-5 Test Value Unit Reference Range Code Code System Flag BEDSIDE GLUCOSE 211 mg/dl L=74 H=106 58068-4 LOINC H BEDSIDE GLUCOSE - Collect Da te/Time: 05/01/2023 20:19 [facility] ID: [id number] [address] [place] [address], [id number] LOINC: 16397-8 Test Value Unit Reference Range Code Code System Flag BEDSIDE GLUCOSE 276 mg/dl L=74 H=106 43747-0 LOINC H LACTIC ACID - Collect Date/T french: 05/01/2023 14:10 [facility] ID: [id number] [address] [place] [address], [id number] LOINC: 24198-8 Test Value Unit Reference Range Code Code System Flag LACTIC ACID 1.7 mmol/L L=0.7 H=2.1 01069-3 LOINC PROTIME - Collect Date/Time: 05/01/2023 12:15 [facility] ID: [id number] [address] [place] [address], [phone] LOINC: 63584-5 Test Value Unit Reference Range Code Code System Flag PT 11.7 Sec L=9.7 H=11.7 71378-4 LOINC INR 1.1 Sec L=0.9 H=1.1 80006-2 LOINC PRO BNP - Collect Date/Time: 05/01/2023 12:15 [facility] ID: [id number] [address] [place] [address], [id number] LOINC: 26021-6 Test Value Unit Reference Range Code Code System Flag Pro BNP2 1910 pg/mL L=0 H=9512 59249-5 LOINC H PROCALCITONIN - Collect Date /Time: 05/01/2023 12:15 [facility] ID: [id number] [address] [place] [address], [id number] LOINC: 48109-3 Test Value Unit Reference Range Code Code System Flag PROCALCITONIN 0.05 ng/mL L=0.00 H=0.08 COMPREHENSIVE METABOLIC PANE L - Collect Date/Time: 05/01/2023 12:15 [facility] ID: [id number] [address] [place] [address], [id number] LOINC: 37044-3 Test Value Unit Reference Range Code Code System Flag FASTING UNKNOWN BUN 19 mg/dL L=7 H=20 3094-0 LOINC CREATININE 0.70 mg/dL L=0.52 H=1.04 2160-0 LOINC GLUCOSE 149 mg/dL L=74 H=106 2345-7 LOINC H SODIUM 142 mmol/L L=132 H=144 2951-2 LOINC POTASSIUM 4.5 mmol/L L=3.5 H=5.1 2823-3 LOINC CHLORIDE 111 mmol/L L=98 H=107 2075-0 LOINC H CO2 21.0 mmol/L L=22.0 H=30.0 2028-9 LOINC L ANION GAP 15 L=10 H=20 05617-1 LOINC OSMOLALITY 299 mOs/kG L=280 H=296 32537-0 LOINC H BUN/CREAT 27.1 3097-3 LOINC CALCIUM 9.5 mg/dL L=8.3 H=10.5 24280-1 LOINC AST 23 U/L L=15 H=46 1920-8 LOINC ALT 21 U/L L=9 H=72 1742-6 LOINC ALKALINE PHOS 80 U/L L=38 H=126 6768-6 LOINC TOTAL BILI 0.6 mg/dL L=0.2 H=1.3 1975-2 LOINC ALBUMIN 4.3 G/dL L=3.5 H=5.0 1751-7 LOINC TOTAL PROTEIN 7.6 g/L L=6.3 H=8.2 2885-2 LOINC A/G RATIO 1.3 13692-2 LOINC AGE 82 94169-0 LOINC eGFR NON-AFR 85 ml/min eGFR AFR AMER 103 ml/min CBC W/ DIFF - Collect Date/T french: 05/01/2023 12:15 [facility] ID: [id number] [address] [place], [place], [phone] LOINC: 09459-6 Test Value Unit Reference Range Code Code System Flag WBC 6.5 10^3uL L=4.8 H=10.8 RBC 4.51 10^6uL L=4.20 H=5.40 HEMOGLOBIN 11.7 g/dL L=12.0 H=16.0 718-7 LOINC L HEMATOCRIT 38.1 VOL% L=37.0 H=47.0 4544-3 LOINC MCV 84.5 fL L=81.0 H=99.0 MCH 25.9 pg L=27.0 H=32.0 L MCHC 30.7 g/dL L=32.0 H=36.0 L PLATELETS 251 10^3uL L=100 H=400 78260-2 LOINC RDW 16.9 % L=11.7 H=15.5 H %GRAN 74.1 % L=40.0 H=70.0 22235-1 LOINC H %LYMPH 15.9 % L=20.0 H=45.0 736-9 LOINC L %MONO 8.7 % L=2.0 H=10.0 60671-9 LOINC %EOS 0.5 % L=0.0 H=6.0 713-8 LOINC %BASO 0.5 % L=0.0 H=3.0 706-2 LOINC #NEUT 4.8 10^3uL L=1.9 H=7.6 35665-4 LOINC #LYMPH 1.0 10^3uL L=0.9 H=4.9 75071-4 LOINC #MONO 0.6 10^3uL L=0.1 H=0.9 50085-1 LOINC #EOS 0.0 10^3uL L=0.0 H=0.6 712-0 LOINC #BASO 0.03 10^3uL L=0.00 H=0.10 91265-9 LOINC #IM GRANS 0.0 10^3uL L=0.0 H=7.0 38600-8 LOINC %IM GRANS 0.3 % L=0.0 H=5.0 12385-2 LOINC %NRB 0.0 L=0.0 H=0.2 08793-9 LOINC #NRB 0.000 L=0.000 H=0.012 68204-5 LOINC MANUAL DIFF NOT INDICATED RBC MORPH NOT INDICATED LACTIC ACID - Collect Date/T french: 05/01/2023 12:15 [facility] ID: [id number] [address] [place], [place], [phone] LOINC: 72255-5 Test Value Unit Reference Range Code Code System Flag LACTIC ACID 1.1 mmol/L L=0.7 H=2.1 06069-5 LOINC D DIMER - Collect Date/Time: 05/01/2023 12:15 [facility] ID: [id number] [address] [place], [place], [phone] LOINC: Test Value Unit Reference Range Code Code System Flag DDIMER 0.58 mg/L FEU L=0.00 H=0.50 H RESPIRATORY 4 PLEX COVID FLU RSV PCR - Collect Date/Time: 05/01/2023 12:15 [facility] ID: [id number] [address] [place] [address], [id number] LOINC: 31132-3 Test Value Unit Reference Range Code Code System Flag SARS CoV2 PCR NEGATIVE FLU A PCR NEGATIVE FLU B PCR NEGATIVE RSV PCR POSITIVE A SEND TO [facility]? YES A ARTERIAL BLOOD GAS - Collect Date/Time: 05/01/2023 12:15 [facility] ID: [id number] [address] [place] [address], [phone] LOINC: 35830-7 Test Value Unit Reference Range Code Code System Flag pH 7.48 L=7.35 H=7.45 2753-2 LOINC H PO2 126.0 mmHg L=80.0 H=90.0 09665-1 LOINC H PCO2 29.0 mmHg L=35.0 H=45.0 17052-4 LOINC L BE -0.6 mmol/L L=0.0 H=2.0 62757-4 LOINC L BEecf -2.4 mmol/L L=0.0 H=2.0 91058-6 LOINC L HCO3 21.4 mmol/L L=22.0 H=26.0 55243-2 LOINC L A-aDO2 L=7 H=13 70830-4 LOINC O2Hb 96.7 % L=85.0 H=99.0 08995-0 LOINC sO2m 99.0 % L=85.0 H=98.0 [place] [address]-7 LOINC PUNCTURE SITE RIGHT RADIAL FIO2 21 % PTT - Collect Date/Time: 08/2023 12:15 [facility] ID: [id number] [address] [place], [place], [phone] LOINC: 39089-8 Test Value Unit Reference Range Code Code System Flag PTT 32.4 Sec L=23.0 H=31.2 H CHEST 1V - Completed: 2023 12:27 LOINC: EXAM DESCRIPTION: CHEST 1V REASON FOR STUDY: cough/ short of breath worsening Duration: 2-3 months TECHNIQUE: 1 radiographic view(s) of the chest. COMPARISON: 02/22/2022 FINDINGS: LUNGS: No focal opacity, pleural effusion, or pneumothorax. Mildly coarsened interstitial opacities are likely chronic lung markings. Mild elevation of the right hemidiaphragm. Opacity of the left costophrenic angle region is likely due to overlapping soft tissues. HEART/MEDIASTINUM: Stable cardiac and mediastinal contours. LINES/TUBES: Spinal cord stimulator. BONES: Right shoulder arthroplasty. Left shoulder degenerative changes. ACDF. IMPRESSION: No acute pulmonary process. THIS IS AN ELECTRONICALLY VERIFIED FINAL REPORT 05/01/2023 12:39 PM - Electronically signed by Rc Nichols M.D. MM: MM Report ID: [id number] Reading Location: [place] [address] CT CHEST PE ANGIO W/ CONTRAS T - Completed: 05/01/2023 13:46 LOINC: 51787-1 EXAM DESCRIPTION: CT CHEST PE ANGIO W/ CONTRAST REASON FOR STUDY: SOB, cough, elevated d-dimer (0.58) hx of a-fib Duration: SOB x 2-3 months, elevated d-dimer today TECHNIQUE: CT angiogram of the chest performed with intravenous contrast using helical scanning technique with dynamic intravenous contrast injection. Reconstructed coronal and sagittal MPR images reviewed. All images stored on PACS. 3D MIP images rendered on scanning unit and reviewed at time of interpretation. Automated exposure control was used as a dose optimization technique for this examination. CONTRAST TYPE/DOSE: 80 of isovue 370 injected via lac COMPARISON: None REFERENCE: Per ACR white paper recommendations, unless otherwise specified no follow-up imaging is recommended for incidental renal and adrenal lesions per consensus recommendations based on imaging criteria. Further lab evaluation could be pursued based on clinical findings. FINDINGS: VASCULATURE: No identified pulmonary emboli. No thoracic aortic aneurysm or dissection. LUNGS: Mild septal thickening and confluent ground-glass opacities bilaterally. No focal consolidation. 5 mm linear left lower lobe perifissural nodule (93). No suspicious lung nodules. PLEURA: No pneumothorax. Small, siurg-fbgjqiu-qalr-left pleural effusions. MEDIASTINUM/REINALDO: No identified masses or abnormal nodes. HEART: Mild cardiomegaly. No pericardial effusion. AXILLA: No adenopathy. CHEST WALL: 1.6 cm soft tissue density in the lateral right breast with coarse calcifications (series 4, image 69). This is better characterized on prior mammography, and may represent fat necrosis. HARDWARE/LINES/TUBES: Stimulator leads terminate in the thoracic spinal canal. UPPER ABDOMEN: 1.6 cm well-defined enhancing lesion in the lateral left hepatic lobe (series 4, image 155). MUSCULOSKELETAL: No significant abnormality. OTHER: No significant abnormality. IMPRESSION: 1. No evidence of pulmonary embolism. 2. Findings suggestive of pulmonary edema. 3. Small hbmgy-atdistv-dfsd-left pleural effusions. 4. 1.6 cm well-defined enhancing lesion in the left hepatic lobe, may represent a hemangioma. This may be further evaluated with a nonemergent liver MRI. THIS IS AN ELECTRONICALLY VERIFIED FINAL REPORT 05/01/2023 2:09 PM - Electronically signed by Shashi Ibanez M.D. KR: TRISTAN Report ID: [id number] Reading Location: [id number] US ECHO W/ COLOR - Completed : 05/02/2023 09:52 LOINC: See Scanned Image Attachment for Report Dictated By: Trans Initials: Trans Date: 05/03/23 11:37 <<REPDIST>> Social History Type Status Start Date End Date Code Code Syst em Smoking History Never smoker (Never Smoked) 377679475 SNOMED CT Sex Female Vital Signs Vital Sign Value Unit Eckerman Value Eckerman Unit Date/Time Recent/Initial? Code Code System Body Mass Index 35.75 kg/m2 05/01/2023 19:18 Initial 38566 -5 [facility] Systolic Blood Pressure 136 mm[Hg] 05/06/2023 05:51 Most Recent 8480- 6 [facility] Diastolic Blood Pressure 70 mm[Hg] 05/06/2023 05:51 Most Recent 8462- 4 [facility] Systolic Blood Pressure 167 mm[Hg] 05/01/2023 19:18 Initial 8480- 6 [facility] Diastolic Blood Pressure 93 mm[Hg] 05/01/2023 19:18 Initial 8462- 4 [facility] Body Surface Area 2.26 m2 05/01/2023 19:18 Initial 3140- 1 [facility] Height 172.720 0 cm 68.00 in 05/01/2023 19:18 Initial 8302- 2 INC O2 Saturation 95 % 2023 10:55 Most Recent 85947 -5 INC O2 Saturation 93 % 2023 06:00 Initial 46126 -5 [facility] Inhaled Oxygen Flow Rate 20.00 L/min 05/02/2023 14:37 Most Recent 3151- 8 [facility] Inhaled Oxygen Flow Rate 20.00 L/min 05/02/2023 10:07 Initial 3151- 8 INC Pulse 92.0 /min 05/06/2023 10:55 Most Recent 8867- 4 INC Pulse 115.0 /min 05/01/2023 19:18 Initial 8867- 4 [facility] Respiration 22 /min 05/06/19 24 10:55 Most Recent 9279- 1 INC Respiration 22 /min 05/01/19 24 19:18 Initial 9279- 1 [facility] Temperature 36.9 Estela 98.4 F 05/06/19 24 05:51 Most Recent 8310- 5 INC Temperature 36.8 Estela 98.3 F 05/01/19 24 19:18 Initial 8310- 5 [facility] Weight 105.05 kg 231.60 lbs 05/06/2023 05:53 Most Recent 12913 -7 [facility] Weight 106.65 kg 235.12 lbs 05/01/2023 19:18 Initial 53103 -7 [facility] Medications Medication Start Date End Date Route Frequency Dose Code Code System Medication Instructions Home Meds oseltamivir phosphate 75MG Oral Capsule 02/14/2022 05/02/2023 ORAL EVERY 12 HOURS 75 MILLIGRAMS 619095 RxNorm TAKE 75 MILLIGRAMS ORAL EVERY 12 HOURS starting the evening of 02/14/2022 Atorvastatin Calcium 40MG Oral Tablet 02/14/2022 05/03/2023 ORAL ONCE A DAY 40 MILLIGRAMS 789530 RxNorm TAKE 40 MILLIGRAMS ORAL ONCE A DAY Eliquis 5MG Oral Tablet 02/14/2022 Unknown ORAL EVERY 12 HOURS 5 MILLIGRAMS 5428124 RxNorm TAKE 5 MILLIGRAMS ORAL EVERY 12 HOURS HYDROcodone bitartrate-ac etaminophen 5MG-325MG Oral Tablet 02/14/2022 05/02/2023 ORAL NEEDED EVERY 6 HOURS 1 TABLET 575738 RxNorm TAKE 1 TABLET ORAL NEEDED EVERY 6 HOURS Lisinopril 40MG Oral Tablet 02/14/2022 Unknown ORAL TWICE A DAY 40 MILLIGRAMS 385741 RxNorm TAKE 40 MILLIGRAMS ORAL TWICE A DAY metFORMIN HCl 500MG Oral Tablet 02/14/2022 Unknown ORAL TWICE A DAY WITH MEALS 500 MILLIGRAMS 395293 RxNorm TAKE 500 MILLIGRAMS ORAL TWICE A DAY WITH MEALS predniSONE 20MG Oral Tablet 02/14/2022 05/02/2023 BY MOUTH ONCE A DAY 2 TABLET 977243 RxNorm TAKE 2 TABLET BY MOUTH ONCE A DAY x 3 days, then TAKE 1 TABLET BY MOUTH ONCE A DAY x 3 days Aspirin 81MG Oral Tablet, Chewable 05/06/2023 Unknown ORAL ONCE A DAY 81 MILLIGRAMS 293136 RxNorm TAKE 81 MILLIGRAMS ORAL ONCE A DAY Digoxin 0.125MG Oral Tablet 05/06/2023 Unknown ORAL ONCE A DAY 0.25 MILLIGRAMS 882686 RxNorm TAKE 0.25 MILLIGRAMS ORAL ONCE A DAY Furosemide 40MG Oral Tablet 05/06/2023 Unknown ORAL EVERY 48 HOURS 40 MILLIGRAMS 073137 RxNorm TAKE 40 MILLIGRAMS ORAL EVERY 48 HOURS predniSONE 20MG Oral Tablet 05/06/2023 Unknown ORAL ONCE A DAY 40 MILLIGRAMS 991277 RxNorm TAKE 40 MILLIGRAMS ORAL ONCE A DAY Atorvastatin Calcium 40MG Oral Tablet 05/06/2023 Unknown ORAL AT BEDTIME 40 MILLIGRAMS 749297 RxNorm TAKE 40 MILLIGRAMS ORAL AT BEDTIME Albuterol Sulfate HFA 0.09MG/1Actua tion Inhalation Suspension 05/06/2023 Unknown INHALA TION NEEDED EVERY 4 HOURS 2 Puff 3295415 RxNorm 2 Puff INHALATION NEEDED EVERY 4 HOURS Procare Inhaler Spacer Chamber 05/06/2023 Unknown BY MOUTH DIRECTE D 1 APPLICATOR RxNorm TAKE 1 APPLICATOR BY MOUTH DIRECTED Terra Perles 100MG Oral Capsule, Liquid Filled 05/06/2023 Unknown BY MOUTH NEEDED 3 TIMES A DAY 1 CAPSULE 697355 RxNorm TAKE 1 CAPSULE BY MOUTH NEEDED 3 TIMES A DAY Assessment You had the following problems:RSV INFECTIONATRIAL FIBRILLATION W/ RVRTYPE 2 DMESSENTIAL HYPERTENSIONMIXED HYPERLIPIDEMIALESION OF [facility] Discharge Instructions Should you have any questions prior to discharge, please contact a member of your healthcare team. If you have left the hospital and have any questions, please contact your primary care physician. Mode of Discharge:Wheelchair. Diet:4 CHONo caffeine2 GM Low salt Activity:As tolerated. IV Site Information:Observe area for, redness, swelling, pain, drainage, or red streaks.If these symptoms occur, please contact your physician. Notify Physician For:Fever, Symptoms/Condition worsen, worsened cough, Increased pain.Abnormal bleeding, Burning with urination. Cardiac Patients:Monitor weight daily, Contact MD for:, Shortness of breath.Weight increase more than 3lbs/5 days, Edema, Intolerance to exercise. Belongings:Belongings sent with patient. Help You May Need When You Leave The Hospital:Department of Aging. Discharge Plan:Education given on Diagnosis(es), Medication list & instructions given.New med changes or DC'd meds discussed, Educated on anticipated problems.Aware of symptom mngment & interventions, Educated on diet and activity.Aware of follow up appt within 1 week.Aware of signs&symptoms that may develop, Discussed when to call MD or 911. Acknowledges Receipt/Understanding Of:Discharge instructions, Pneumonia instructions, Medication instructions.Follow up appointment. Additional Information:Make an appointment to see your Primary Care Dr within 1 week of thisspital discharge. Reason For Referral Reason for Referral: Call and schedule a follow up appointment with your PCP after discharge from hospital. Receiving Provider: MICHAEL THOMASGA [id number] Problems Problem Start Date Resolved Date Status Code Code System RSV INFECTION active 90967817 SNOMED -CT ATRIAL FIBRILLATION W/ RVR active 711424745463424 SNOMED-CT TYPE 2 DM active 13385867 SNOMED-CT ESSENTIAL HYPERTENSION active 8216221 0 SNOMED-CT MIXED HYPERLIPIDEMIA active 707682464 SNOMED-CT LESION OF LIVER active 807593459 SNOM ED-CT COUGH active 27927071 SNOMED-CT DYSPNEA active 878288055 SNOMED-CT INFLUENZA 05/06/2023 resolved 6070726 SNOMED-CT Allergies and Adverse Reactions Allergy Substance Reaction Severity Start Date Concern Status Co de Code System No Known Allergies Moderate Active 672244259 SN OMED-CT Plan of Treatment US Echo With Color (53910) 10/20/2024 US Carotid Doppler (79862) 04/03/2024 Digital Tico Screen R Unilateral (63616) 11/10/2024 Encounters Encounter Diagnosis Start Date Code Code Sys tem Acute bronchiolitis due to respiratory syncytial virus 05/01/2023 SNOMED-CT Personal Care Team Section Discharge Summary Notes [facility] 05/06/2023 12:23 Demographics Patient Name Age Sex Visit Number Admission Date/Time Attending Physician Room and Bed YE PINEDA 1940 82 years Female [id number] 05/01/2023 18:15 Tomas Estevez 111 05/06/2023 ADMISSION & FINAL DIAGNOSIS: Problem Table Problem ICD Code Onset Date Age Status Comment RSV infection B97.4 Active Atrial fibrillation w/ RVR I48.0 Active Type 2 DM E11.9 Active Essential hypertension I10 Active Mixed hyperlipidemia E78.2 Active Lesion of liver K76.9 Active Cough R05.9 Active Dyspnea R06.00 Active Full Code Status BRIEF HISTORY: (FROM INITIAL INPATIENT ON 05/01/2023: Dr Estevez:) the pateint is here with sob and cough for past few days now. she rpeorts she has not been feeling well. no fever, chills. she reports no leg swelling. she was noted to be in afib with rvr while in the ed and received a dose of diltiazem iv push which controlle.d she does not remember all her medications. no abdominal pain, nausea, vomiting. she was wheezy quite a bit and was tested postiive for RSV. flu and covid was ngative. cxr was negative. d dimer elevated. cta negative for pe but showed pulmonary edema. she received solumedrol and a dsoe of lasix in the ED. admitted for further treatment. ASSESSMENT AND PLAN: # RSV bronchiolitis received solumedrol. will continue solumedrol and duoneb # pulmonary edema. check echo. bnp . Lasix dose given. no prior hx of CHF in the past. no leg swelling noted. # afib with rvr: on eliquis at home. not on any bb. will add metoprolol for rate control. received iv diltiazem in the ed. rate currently controlled monitor on telemetry # htn; home medications # dm2: accucheck ac and hs. ssi # HLP: home medications # DVT proph: on eliquis # Code status: full code INPATIENT: 05/02: Ms Pineda reports she feels about the same. Still tired and dyspneic. No chest pain, N/V/D/C. No abdominal pain. Afebrile 93% O2 Sat on RA 25 BUN / 192 Glucose 5.3 WBC / 11.5 Hgb Glucose was 211 to 276 since admission Remains on IV Solu-Medrol Echo performed today, results pending Dyspnea - Differential Diagnosis: RSV Bronchiolitis / Recent [place] / CHF / PE (not likely as she is on Eliquis) Diagnostic Tests/Labs Reviewed: CBC, CMP, Pro-BNP, Troponin Diagnostic Tests/Labs Ordered & Considered: Repeat Troponins / EKG Discussed with: Case Management / Nursing Staff. Treatments: RSV Bronchiolitis, plus possibly recent TN and/or CHF? Awaiting repeat troponins. First one was elevated from labs this am after I ordered it. However, this was not called to me nor did the nurse inform me. I saw this lab as I was writing her note at 1915 this evening. Repeat troponins. RSV Bronchiolitis - Treatments: Continue Solu-Medrol, Duonebs and PRN Albuterol Elevated D-Dimer - Treatments: CTA Chest was negative. A-Fib with RVR - Treatments: Continue Eliquis, Metoprolol (started by hospitalist yesterday) Telemetry DM 2 - Treatments: SS Insulin Glucose checks q AC and HS Lantus 6 units q PM 4 CHO diet Hgb A1C is 7.4 Essential HTN - Treatments: Continue Lisinopril. BPs are ok. HLD - Treatments: Continue Atorvastatin Liver Lesion (1.6 cm) - Treatments: MRI of her abdomen as an outpatient. VTE Prophy - Treatments: Is on Eliquis CODE STATUS - Full Code per discussion with with Ms Pineda. INPATIENT: 05/03: Ms Pineda reports she feels the same overall, still with a cough and considerable dyspnea on exertion. No chest pain, N/V/D/C. No abdominal pain. Afebrile 94% O2 Sat on RA 40 BUN / 0.9 Creatinine / 210 Glucose / 5.2 K+ 11.3 WBC / 11.3 Hgb Troponin was up to 0.123 this am Pro-BNP is up to 3,890 (from 1,910 2 days ago) Glucose was 202 to 278 in the past 24 hours Remains on IV Solu-Medrol Echo performed today, results pending Dyspnea - Differential Diagnosis: RSV Bronchiolitis / Recent [place] / CHF / PE (not likely as she is on Eliquis) Diagnostic Tests/Labs Reviewed: CBC, CMP, Pro-BNP, Troponin Diagnostic Tests/Labs Ordered & Considered: Repeat Troponins Discussed with: Case Management / Dr Torres ([facility]) Treatments: Consulting Cardiology today regarding the A-Fib/RVR and the Troponin spike. Continue Solu-Medrol IV and Nebs, RT consultations. Recheck troponins in the am. Echo remains pending. RSV Bronchiolitis - Treatments: Continue Solu-Medrol, Duonebs and PRN Albuterol Elevated Troponins - Treatments: Consult Cardiology today. Telemedicine. Hyperkalemia - Lasix given this am. Recheck in the evening. A-Fib with RVR - Treatments: Continue Eliquis, Metoprolol and telemetry. Consulting cardiology today, Dr Torres from [facility]. DM 2 - Treatments: Glucose levels are elevated despite the 6 units of Lantus last night. I will increase to 10 units this evening. Essential HTN - Treatments: Continue Lisinopril. BPs are ok. Liver Lesion (1.6 cm) - Treatments: MRI of her abdomen as an outpatient. VTE Prophy - Treatments: Is on Eliquis CODE STATUS - Remains a Full Code INPATIENT: 05/04: Ms Pineda reports she feels really no different, possibly a little stronger. No chest pain, N/V/D/C. Dyspnea is still present on exertion and she has a cough, still. Afebrile 94% O2 Sat on RA 43 BUN / 0.9 Creatinine / 215 Glucose / 5.8 K+ 12.3 WBC / 11.3 Hgb Glucose was 226 to 262 in the past 24 hours Remains on IV Solu-Medrol Echo results: 05/03: 55-60% EF. No obvious diastolic dysfunction except for LVH. No grading of the diastolic dysfunction noted. Dyspnea - Differential Diagnosis: RSV Bronchiolitis / CHF Diagnostic Tests/Labs Reviewed: CBC, CMP, Discussed with: Case Management / Nurse Treatments: She remains with dyspnea, wheezing and now hyperkalemia. These could be side effects of her metoprolol I am stopping her metoprolol Contnue nebs, RT support. RSV Bronchiolitis - Treatments: Continue Solu-Medrol, Duonebs and PRN Albuterol Hyperkalemia - Lasix to continue. Lokelma ordered. Low potassium diet. Stop Metoprolol A-Fib with RVR - Treatments: Stop metoprolol and start Digoxin today. DM 2 - Treatments: Glucose levels are elevated despite the 6 units of Lantus last night. I will increase to 10 units this evening. Essential HTN - Treatments: Continue Lisinopril. BPs are ok. Liver Lesion (1.6 cm) - Treatments: MRI of her abdomen as an outpatient. VTE Prophy - Treatments: Is on Eliquis CODE STATUS - Remains a Full Code INPATIENT: 05/05: Ms Pineda reports she feels the same. No chest pain, N/V/D/C. Cough and dyspnea are present Afebrile 94% O2 Sat on RA 40 BUN / 0.9 Creatinine / 217 Glucose / 4.9 K+ 11.0 WBC / 11.0 Hgb Pro-BNP 4,470. 3,890 2 days ago. I/O = negative 1,370 in the past 24 hours. Glucose was 179 to 262 in the past 24 hours Remains on IV Solu-Medrol Dyspnea - Differential Diagnosis: RSV Bronchiolitis / CHF Diagnostic Tests/Labs Reviewed: CBC, CMP, pro-BNP Discussed with: RT / Nurse Treatments: Cough and wheeze may take months to resolve, if they do completely. Metoprolol stopped yesterday. Continue nebs, RT support. Plan is for D/C to home tomorrow. RSV Bronchiolitis - Treatments: Switch to Prednisone PO, BID 40 mg. Hyperkalemia - Lasix to continue, but PO Lokelma x 1 brought her potassium down to 4.9 2nd dose given this am. Recheck in the am. A-Fib with RVR - Treatments: Digoxin holding well. HR 70s to 100s. DM 2 - Treatments: Continue Lantus at 15 units. May have glucose levels lower with switching from Solu-Medrol to Prednisone PO. Essential HTN - Treatments: Continue Lisinopril, we did stop her metoprolol. Liver Lesion (1.6 cm) - Treatments: MRI of her abdomen as an outpatient. VTE Prophy - Treatments: Is on Eliquis CODE STATUS - Remains a Full Code INPATIENT DISCHARGE: 05/06: D/C to home with no Home Health: (Refuses [facility]): Dyspnea - May become a chronic issue as she has had RSV Bronchiolitis and she had not had significant improvement in her dyspnea. She had a fairly normal echo (Mild Diastolic Dysfunction) and her BNP has been elevated. Lasix has been managing this. Cardiology was consulted. See below D/C to home today. She is refusing an YULI and doesn't want Home Health Home on Tessalon Perles Prednisone 40 mg po daily x 4 days Albuterol inhaler with space chamber A-Fib with RVR - Rate will controlled (70s to 100) on Digoxin. She was initially placed on Metoprolol, but with her hyperkalemia and continued wheeze, it was postulated kishan the Metoprolol was contributing to both Cardiology consulted, Dr. Torres from [facility] saw her Recommended Dig instead of the Metoprolol. See Technical Administrator (Dr. Rebollar) in 2 weeks RSV Bronchiolitis - Not much we can do, other than supportive care. May need to see a certified surgical first assistant in the future is no improvement over the next 2 weeks. Hyperkalemia - After 2 doses of Lokelma, stopping her metoprolol, her potassium is down to 4.8 Needs to be followed by her PCP. DM 2 - Initially she had elevations on Solu-Medrol. But her glucose readings are trending downward with PO Prednisone Home on a prednisone taper, so back on her metformin upon D/C. Essential HTN - BP readings have been ok. Continue Lisinopril. 1.6 cm Liver Lesion - Follow-up with PCP to consider an MRI of her abdomen. CODE STATUS - Remains a Full Code upon D/C SOCIAL DETERMINANTS OF HEALTH (SDOH) IMPACTING CARE: 1) Food Insecurity - none 2) Housing Instability - none 3) Transportation Needs - none 4) Utility Difficulties - none 5) Interpersonal safety - none EXAM: Most Recent Vital Signs BP (mm/Hg) BP Position/Site Heart Rate Resp Temp (F) SPO2% O2 Device Height (in) Weight (kg) 136/70 LYING/R ARM 70 16 98.4 ORAL 95 % Room Air 21% 68 in 105.05 kg GENERAL: Alert and oriented, in no distress. HEART: IRR/IRR LUNGS: Mild coarse breath sounds noted scattered throughout. ABDOMEN: Soft, nontender, nondistended. EXTREMITIES: No edema. NEUROLOGIC: Without focal neurologic deficits. DIAGNOSTICS: LABS: Lab Results: Last 8 Hours Test Results Units Reference Range Ordered Collected Status FASTING? UNKNOWN UNKNOWN 05/06/2023 12:04 05/06/2023 06:15 final BUN 37 H mg/dL L=7 H=20 05/06/2023 12:04 05/06/2023 06:15 final CREATININE 0.90 mg/dL L=0.52 H=1.04 05/06/2023 12:04 05/06/2023 06:15 final GLUCOSE 217 H mg/dL L=74 H=106 05/06/2023 12:04 05/06/2023 06:15 final CALCIUM 9.2 mg/dL L=8.3 H=10.5 05/06/2023 12:04 05/06/2023 06:15 final SODIUM 140 mmol/L L=132 H=144 05/06/2023 12:04 05/06/2023 06:15 final POTASSIUM 4.8 mmol/L L=3.5 H=5.1 05/06/2023 12:04 05/06/2023 06:15 final CHLORIDE 103 mmol/L L=98 H=107 05/06/2023 12:04 05/06/2023 06:15 final CO2 33.0 H mmol/L L=22.0 H=30.0 05/06/2023 12:04 05/06/2023 06:15 final ANION GAP 9 L L=10 H=20 05/06/2023 12:04 05/06/2023 06:15 final BUN/CREAT 41.1 05/06/2023 12:04 05/06/2023 06:15 final AGE 82 05/06/2023 12:04 05/06/2023 06:15 final eGFR NON-AFR 63 ml/min 05/06/2023 12:04 05/06/2023 06:15 final eGFR AFR AMER 76 ml/min 05/06/2023 12:04 05/06/2023 06:15 final WBC 10.9 H 10^3uL L=4.8 H=10.8 05/06/2023 07:27 05/06/2023 06:15 final RBC 4.48 10^6uL L=4.20 H=5.40 05/06/2023 07:27 05/06/2023 06:15 final HEMOGLOBIN 11.5 L g/dL L=12.0 H=16.0 05/06/2023 07:27 05/06/2023 06:15 final HEMATOCRIT 37.8 VOL% L=37.0 H=47.0 05/06/2023 07:27 05/06/2023 06:15 final MCV 84.4 fL L=81.0 H=99.0 05/06/2023 07:27 05/06/2023 06:15 final MCH 25.7 L pg L=27.0 H=32.0 05/06/2023 07:27 05/06/2023 06:15 final MCHC 30.4 L g/dL L=32.0 H=36.0 05/06/2023 07:27 05/06/2023 06:15 final RDW 16.7 H % L=11.7 H=15.5 05/06/2023 07:27 05/06/2023 06:15 final PLATELETS 242 10^3uL L=100 H=400 05/06/2023 07:27 05/06/2023 06:15 final %GRAN 87.2 H % L=40.0 H=70.0 05/06/2023 07:27 05/06/2023 06:15 final %LYMPH 7.4 L % L=20.0 H=45.0 05/06/2023 07:27 05/06/2023 06:15 final %MONO 4.3 % L=2.0 H=10.0 05/06/2023 07:27 05/06/2023 06:15 final %EOS 0.0 % L=0.0 H=6.0 05/06/2023 07:27 05/06/2023 06:15 final %BASO 0.1 % L=0.0 H=3.0 05/06/2023 07:27 05/06/2023 06:15 final %IM GRANS 1.0 % L=0.0 H=5.0 05/06/2023 07:27 05/06/2023 06:15 final #NEUT 9.5 H 10^3uL L=1.9 H=7.6 05/06/2023 07:27 05/06/2023 06:15 final #LYMPH 0.8 L 10^3uL L=0.9 H=4.9 05/06/2023 07:27 05/06/2023 06:15 final #MONO 0.5 10^3uL L=0.1 H=0.9 05/06/2023 07:27 05/06/2023 06:15 final #EOS 0.0 10^3uL L=0.0 H=0.6 05/06/2023 07:27 05/06/2023 06:15 final #BASO 0.01 10^3uL L=0.00 H=0.10 05/06/2023 07:27 05/06/2023 06:15 final #IM GRANS 0.1 10^3uL L=0.0 H=7.0 05/06/2023 07:27 05/06/2023 06:15 final %NRB 0.0 L=0.0 H=0.2 05/06/2023 07:27 05/06/2023 06:15 final #NRB 0.000 L=0.000 H=0.012 05/06/2023 07:27 05/06/2023 06:15 final MANUAL DIFF NOT INDICATED NOT INDICATED 05/06/2023 07:27 05/06/2023 06:15 final RBC MORPH NOT INDICATED NOT INDICATED 05/06/2023 07:27 05/06/2023 06:15 final Pro BNP2 3340 H pg/mL L=0 G=4042 05/06/2023 09:03 05/06/2023 06:15 final BEDSIDE GLUCOSE 198 H mg/dl L=74 H=106 05/06/2023 05:50 05/06/2023 05:50 final MEDICATIONS: Discharge Medications Medication Dosage Route Frequency Prescribing MD Special Instructions Eliquis 5MG Oral Tablet 5 MILLIGRAMS ORAL EVERY 12 HOURS ALESSANDRO NILESH A TAKE 5 MILLIGRAMS ORAL EVERY 12 HOURS Lisinopril 40MG Oral Tablet 40 MILLIGRAMS ORAL TWICE A DAY ALESSANDRO NILESH A TAKE 40 MILLIGRAMS ORAL TWICE A DAY metFORMIN HCl 500MG Oral Tablet 500 MILLIGRAMS ORAL TWICE A DAY WITH MEALS ALESSANDRO NILESH A TAKE 500 MILLIGRAMS ORAL TWICE A DAY WITH MEALS Aspirin 81MG Oral Tablet, Chewable 81 MILLIGRAMS ORAL ONCE A DAY ALESSANDRO NILESH A TAKE 81 MILLIGRAMS ORAL ONCE A DAY Digoxin 0.125MG Oral Tablet 0.25 MILLIGRAMS ORAL ONCE A DAY LAESSANDRO NILESH A TAKE 0.25 MILLIGRAMS ORAL ONCE A DAY Furosemide 40MG Oral Tablet 40 MILLIGRAMS ORAL EVERY 48 HOURS ALESSANDRO NILESH A TAKE 40 MILLIGRAMS ORAL EVERY 48 HOURS predniSONE 20MG Oral Tablet 40 MILLIGRAMS ORAL ONCE A DAY ALESSANDRO NILESH A TAKE 40 MILLIGRAMS ORAL ONCE A DAY Atorvastatin Calcium 40MG Oral Tablet 40 MILLIGRAMS ORAL AT BEDTIME ALESSANDRO NILESH A TAKE 40 MILLIGRAMS ORAL AT BEDTIME Albuterol Sulfate HFA 0.09MG/1Actuation Inhalation Suspension 2 Puff INHALATION NEEDED EVERY 4 HOURS ALESSANDRO NILESH A 2 Puff INHALATION NEEDED EVERY 4 HOURS Procare Inhaler Spacer Chamber 1 APPLICATOR BY MOUTH DIRECTED ALESSANDRO NILESH A TAKE 1 APPLICATOR BY MOUTH DIRECTED Tessalon Perles 100MG Oral Capsule, Liquid Filled 1 CAPSULE BY MOUTH NEEDED 3 TIMES A DAY ALESSANDRO NILESH A TAKE 1 CAPSULE BY MOUTH NEEDED 3 TIMES A DAY 50 minutes of time spent performing discharge services. [facility] Discharge Summary Scanned image Imaging Narrative Notes [facility] 05/03/2023 11:37 [facility] [id number] [place], [place] [address] RADIOLOGY REPORT Patient Number: [id number] Patient Name: JULIANN CLAY Type: I/P MR Number: [id number] : 1940 Age: 82 Sex: F Room #: 111 Admit Date: 05/01/23 Discharge Date Ordering Physician: ARLINE GONZALEZ Family Physician: SIL Second Physician: X-Ray Number : [id number] US ECHO W/ COLOR [id number] COMPLETE:05/02/23 09:52 AAP [id number] (REASON-ECHO COMPLTE: SHORTNESS OF BREATH See Scanned Image Attachment for Report Dictated By: Trans Initials: BG Trans Date: 05/03/23 11:37 <<REPDIST>> History and Physical Notes [facility] 05/01/2023 18:27 Demographics Patient Name Age Sex Visit Number Admission Date/Time Attending Physician Room and Bed YE PINEDA OBED 1940 82 years Female [id number] 05/01/2023 10:44 Beaugiselle Floresde ED-31 05/01/2023 HISTORY OF PRESENT ILLNESS: the pateint is here with sob and cough for past few days now. she rpeorts she has not been feeling well. no fever, chills. she reports no leg swelling. she was noted to be in afib with rvr while in the ed and received a dose of diltiazem iv push which controlle.d she does not remember all her medications. no abdominal pain, nausea, vomiting. she was wheezy quite a bit and was tested postiive for RSV. flu and covid was ngative. cxr was negative. d dimer elevated. cta negative for pe but showed pulmonary edema. she received solumedrol and a dsoe of lasix in the ED. admitted for further treatment. REVIEW OF SYSTEMS: GENERAL: No fevers or chills. Alert and oriented x 3. HEENT: No changes in vision or hearing. No headache. CV: No chest pain. No edema. MUSCULOSKELETAL: No muscle or joint aches or pains. RESPIRATORY: reports shortness of breath or cough. GI: No nausea. No constipation. No diarrhea. No black or bloody stools. : No dysuria or hematuria. NEUROLOGIC: No focal neurologic deficits. INTEGUMENT: No rashes or sores. PAST MEDICAL HISTORY: hx of afib htn hlp dm2 r shoduler repalcement FAMILY HISTORY: Family History List: No Family History Available PAST SURGICAL HISTORY: right shoulder replacement Surgery List: No Surgical History Available SOCIAL HISTORY: no smoking, drinking or illcit drug use Smoking Status: Never smoker, Cessation Education: Allergy List No Known Allergies, Medication, Environment, Food Home Meds: Dose and Freq: No Home Medications Available PHYSICAL EXAM: Most Recent Vital Signs BP (mm/Hg) BP Position/Site Heart Rate Resp Temp (F) SPO2% O2 Device Height (in) Weight (kg) 157/71 LYING/L ARM 62 16 98.3 ORAL 92 % Room Air 21% 67 in 106 kg GENERAL: Alert and oriented, in no distress. HEENT: PERRLA. Oral mucous membranes are pink and moist. Nares normal. NECK: Supple. No lymphadenopathy or thyromegaly. HEART: Regular rate and rhythm, S1, S2, no murmur. LUNGS: bialteral wheezes, coarse breath sounds, no labored breathing. ABDOMEN: Soft, nontender, nondistended. Bowel sounds present. EXTREMITIES: No edema. No calf tenderness. Good distal pulses. Moving extremities. NEUROLOGIC: Cranial nerves II-XII are intact. SKIN: No rashes or sores. PSYCH: Not anxious or agitated. Alert and oriented x3. DIAGNOSTICS: cxr: No acute pulmonary process. CTA chest: No evidence of pulmonary embolism. 2. Findings suggestive of pulmonary edema. 3. Small rkyyv-gyhyyzo-zeyz-left pleural effusions. 4. 1.6 cm well-defined enhancing lesion in the left hepatic lobe, may represent a hemangioma. This may be further evaluated with a nonemergent liver MRI. LABS: Lab Results: Last 24 Hours Test Results Units Reference Range Ordered Collected Status LACTIC ACID 1.7 mmol/L L=0.7 H=2.1 05/01/2023 14:02 05/01/2023 14:10 final pH 7.48 H L=7.35 H=7.45 05/01/2023 12:02 05/01/2023 12:15 final PO2 126.0 H mmHg L=80.0 H=90.0 05/01/2023 12:02 05/01/2023 12:15 final PCO2 29.0 L mmHg L=35.0 H=45.0 05/01/2023 12:02 05/01/2023 12:15 final BE -0.6 L mmol/L L=0.0 H=2.0 05/01/2023 12:02 05/01/2023 12:15 final BEecf -2.4 L mmol/L L=0.0 H=2.0 05/01/2023 12:02 05/01/2023 12:15 final HCO3 21.4 L mmol/L L=22.0 H=26.0 05/01/2023 12:02 05/01/2023 12:15 final A-aDO2 L=7 H=13 05/01/2023 12:02 05/01/2023 12:15 final O2Hb 96.7 % L=85.0 H=99.0 05/01/2023 12:02 05/01/2023 12:15 final sO2m 99.0 H % L=85.0 H=98.0 05/01/2023 12:02 05/01/2023 12:15 final ILIANA TEST OK OK 05/01/2023 12:02 05/01/2023 12:15 final PUNCTURE SITE RIGHT RADIAL RIGHT RADIAL 05/01/2023 12:02 05/01/2023 12:15 final FIO2 21 % 05/01/2023 12:02 05/01/2023 12:15 final WBC 6.5 10^3uL L=4.8 H=10.8 05/01/2023 12:02 05/01/2023 12:15 final RBC 4.51 10^6uL L=4.20 H=5.40 05/01/2023 12:02 05/01/2023 12:15 final HEMOGLOBIN 11.7 L g/dL L=12.0 H=16.0 05/01/2023 12:02 05/01/2023 12:15 final HEMATOCRIT 38.1 VOL% L=37.0 H=47.0 05/01/2023 12:02 05/01/2023 12:15 final MCV 84.5 fL L=81.0 H=99.0 05/01/2023 12:02 05/01/2023 12:15 final MCH 25.9 L pg L=27.0 H=32.0 05/01/2023 12:02 05/01/2023 12:15 final MCHC 30.7 L g/dL L=32.0 H=36.0 05/01/2023 12:02 05/01/2023 12:15 final PLATELETS 251 10^3uL L=100 H=400 05/01/2023 12:02 05/01/2023 12:15 final RDW 16.9 H % L=11.7 H=15.5 05/01/2023 12:02 05/01/2023 12:15 final %GRAN 74.1 H % L=40.0 H=70.0 05/01/2023 12:02 05/01/2023 12:15 final %LYMPH 15.9 L % L=20.0 H=45.0 05/01/2023 12:02 05/01/2023 12:15 final %MONO 8.7 % L=2.0 H=10.0 05/01/2023 12:02 05/01/2023 12:15 final %EOS 0.5 % L=0.0 H=6.0 05/01/2023 12:02 05/01/2023 12:15 final %BASO 0.5 % L=0.0 H=3.0 05/01/2023 12:02 05/01/2023 12:15 final #NEUT 4.8 10^3uL L=1.9 H=7.6 05/01/2023 12:02 05/01/2023 12:15 final #LYMPH 1.0 10^3uL L=0.9 H=4.9 05/01/2023 12:02 05/01/2023 12:15 final #MONO 0.6 10^3uL L=0.1 H=0.9 05/01/2023 12:02 05/01/2023 12:15 final #EOS 0.0 10^3uL L=0.0 H=0.6 05/01/2023 12:02 05/01/2023 12:15 final #BASO 0.03 10^3uL L=0.00 H=0.10 05/01/2023 12:02 05/01/2023 12:15 final #IM GRANS 0.0 10^3uL L=0.0 H=7.0 05/01/2023 12:02 05/01/2023 12:15 final %IM GRANS 0.3 % L=0.0 H=5.0 05/01/2023 12:02 05/01/2023 12:15 final %NRB 0.0 L=0.0 H=0.2 05/01/2023 12:02 05/01/2023 12:15 final #NRB 0.000 L=0.000 H=0.012 05/01/2023 12:02 05/01/2023 12:15 final MANUAL DIFF NOT INDICATED NOT INDICATED 05/01/2023 12:02 05/01/2023 12:15 final RBC MORPH NOT INDICATED NOT INDICATED 05/01/2023 12:02 05/01/2023 12:15 final FASTING UNKNOWN UNKNOWN 05/01/2023 12:02 05/01/2023 12:15 final BUN 19 mg/dL L=7 H=20 05/01/2023 12:02 05/01/2023 12:15 final CREATININE 0.70 mg/dL L=0.52 H=1.04 05/01/2023 12:02 05/01/2023 12:15 final GLUCOSE 149 H mg/dL L=74 H=106 05/01/2023 12:02 05/01/2023 12:15 final SODIUM 142 mmol/L L=132 H=144 05/01/2023 12:02 05/01/2023 12:15 final POTASSIUM 4.5 mmol/L L=3.5 H=5.1 05/01/2023 12:02 05/01/2023 12:15 final CHLORIDE 111 H mmol/L L=98 H=107 05/01/2023 12:02 05/01/2023 12:15 final CO2 21.0 L mmol/L L=22.0 H=30.0 05/01/2023 12:02 05/01/2023 12:15 final ANION GAP 15 L=10 H=20 05/01/2023 12:02 05/01/2023 12:15 final OSMOLALITY 299 H mOs/kG L=280 H=296 05/01/2023 12:02 05/01/2023 12:15 final BUN/CREAT 27.1 05/01/2023 12:02 05/01/2023 12:15 final CALCIUM 9.5 mg/dL L=8.3 H=10.5 05/01/2023 12:02 05/01/2023 12:15 final AST 23 U/L L=15 H=46 05/01/2023 12:02 05/01/2023 12:15 final ALT 21 U/L L=9 H=72 05/01/2023 12:02 05/01/2023 12:15 final ALKALINE PHOS 80 U/L L=38 H=126 05/01/2023 12:02 05/01/2023 12:15 final TOTAL BILI 0.6 mg/dL L=0.2 H=1.3 05/01/2023 12:02 05/01/2023 12:15 final ALBUMIN 4.3 G/dL L=3.5 H=5.0 05/01/2023 12:02 05/01/2023 12:15 final TOTAL PROTEIN 7.6 g/L L=6.3 H=8.2 05/01/2023 12:02 05/01/2023 12:15 final A/G RATIO 1.3 05/01/2023 12:02 05/01/2023 12:15 final AGE 82 05/01/2023 12:02 05/01/2023 12:15 final eGFR NON-AFR 85 ml/min 05/01/2023 12:02 05/01/2023 12:15 final eGFR AFR AMER 103 ml/min 05/01/2023 12:02 05/01/2023 12:15 final CULTURE BLOOD 05/01/2023 12:02 05/01/2023 12:15 registered CULTURE BLOOD 05/01/2023 12:02 05/01/2023 12:15 registered DDIMER 0.58 H mg/L FEU L=0.00 H=0.50 05/01/2023 12:02 05/01/2023 12:15 final LACTIC ACID 1.1 mmol/L L=0.7 H=2.1 05/01/2023 12:02 05/01/2023 12:15 final Pro BNP2 1910 H pg/mL L=0 Q=2974 05/01/2023 15:00 05/01/2023 12:15 final PROCALCITONIN 0.05 ng/mL L=0.00 H=0.08 05/01/2023 12:02 05/01/2023 12:15 final PT 11.7 Sec L=9.7 H=11.7 05/01/2023 12:02 05/01/2023 12:15 final INR 1.1 Sec L=0.9 H=1.1 05/01/2023 12:02 05/01/2023 12:15 final PTT 32.4 H Sec L=23.0 H=31.2 05/01/2023 12:02 05/01/2023 12:15 final SARS CoV2 PCR NEGATIVE NEGATIVE 05/01/2023 12:02 05/01/2023 12:15 final FLU A PCR NEGATIVE NEGATIVE 05/01/2023 12:02 05/01/2023 12:15 final FLU B PCR NEGATIVE NEGATIVE 05/01/2023 12:02 05/01/2023 12:15 final RSV PCR POSITIVE A POSITIVE 05/01/2023 12:02 05/01/2023 12:15 final SEND TO [facility]? YES A YES 05/01/2023 12:02 05/01/2023 12:15 final EKG 05/01/2023 12:02 05/01/2023 12:04 registered EKG 05/01/2023 16:19 05/01/2023 17:01 registered ASSESSMENT AND PLAN: # RSV bronchiolitis received solumedrol. will continue solumedrol and duoneb # pulmonary edema. check echo. bnp 1900s. Lasix dose given. no prior hx of CHF in the past. no leg swelling noted. # afib with rvr: on eliquis at home. not on any bb. will add metoprolol for rate control. received iv diltiazem in the ed. rate currently controlled monitor on telemetry # htn; home medications # dm2: accucheck ac and hs. ssi # HLP: home medications # DVT proph: on eliquis # Code status: full code SOCIAL DETERMINANTS OF HEALTH (SDOH) IMPACTING CARE: 1) Food Insecurity - none 2) Housing Instability - none 3) Transportation Needs - none 4) Utility Difficulties - none 5) Interpersonal safety - none 6. none Critical Care Time: (If applicable) Tobacco Cessation/Time: (If applicable) Total Clinical Time: (If applicable) Progress Notes [facility] 05/05/2023 15:29 Demographics Patient Name Age Sex Visit Number Admission Date/Time Attending Physician Room and Bed YE PINEDA 1940 82 years Female [id number] 05/01/2023 18:15 Tomas Arline 111 05/04/2023 SUBJECTIVE DATA CC: RSV Bronchiolitis / A-Fib with RVR Ms Juliann reports she feels really no different, possibly a little stronger. No chest pain, N/V/D/C. Dyspnea is still present on exertion and she has a cough, still. Afebrile 94% O2 Sat on RA 43 BUN / 0.9 Creatinine / 215 Glucose / 5.8 K+ 12.3 WBC / 11.3 Hgb Glucose was 226 to 262 in the past 24 hours Remains on IV Solu-Medrol Echo results: 05/03: 55-60% EF. No obvious diastolic dysfunction except for LVH. No grading of the diastolic dysfunction noted. OBJECTIVE DATA: Vital signs have been reviewed Lab(s) have been ordered and/or reviewed Intake/Output has been reviewed Radiologic/Diagnostic testing has been ordered and/or reviewed LAB(S): Lab Results: Last 8 Hours Test Results Units Reference Range Ordered Collected Status BEDSIDE GLUCOSE 262 H mg/dl L=74 H=106 05/04/2023 12:01 05/04/2023 12:01 final PHYSICAL EXAM: Most Recent Vital Signs BP (mm/Hg) BP Position/Site Heart Rate Resp Temp (F) SPO2% O2 Device Height (in) Weight (kg) 130/87 LYING/R ARM 90 20 98.6 ORAL 92 % Room Air 21% 68 in 107.5 kg GENERAL: Alert and oriented, in no distress. HEART: IRR/IRR LUNGS: Mild coarse breath sounds, bilaterally. ABDOMEN: Soft, nontender, nondistended EXTREMITIES: No edema ASSESSMENT AND PLAN: INITIAL INPATIENT: Dr Estevez: 05/01: # RSV bronchiolitis received solumedrol. will continue solumedrol and duoneb # pulmonary edema. check echo. bnp 1900s. Lasix dose given. no prior hx of CHF in the past. no leg swelling noted. # afib with rvr: on eliquis at home. not on any bb. will add metoprolol for rate control. received iv diltiazem in the ed. rate currently controlled monitor on telemetry # htn; home medications # dm2: accucheck ac and hs. ssi # HLP: home medications # DVT proph: on eliquis # Code status: full code INPATIENT: 05/02: Dyspnea - Differential Diagnosis: RSV Bronchiolitis / Recent [place] / CHF / PE (not likely as she is on Eliquis) Diagnostic Tests/Labs Reviewed: CBC, CMP, Pro-BNP, Troponin Diagnostic Tests/Labs Ordered & Considered: Repeat Troponins / EKG Discussed with: Case Management / Nursing Staff. Treatments: RSV Bronchiolitis, plus possibly recent [place] and/or CHF? Awaiting repeat troponins. First one was elevated from labs this am after I ordered it. However, this was not called to me nor did the nurse inform me. I saw this lab as I was writing her note at 1915 this evening. Repeat troponins. RSV Bronchiolitis - Treatments: Continue Solu-Medrol, Duonebs and PRN Albuterol Elevated D-Dimer - Treatments: CTA Chest was negative. A-Fib with RVR - Treatments: Continue Eliquis, Metoprolol (started by hospitalist yesterday) Telemetry DM 2 - Treatments: SS Insulin Glucose checks q AC and HS Lantus 6 units q PM 4 CHO diet Hgb A1C is 7.4 Essential HTN - Treatments: Continue Lisinopril. BPs are ok. HLD - Treatments: Continue Atorvastatin Liver Lesion (1.6 cm) - Treatments: MRI of her abdomen as an outpatient. VTE Prophy - Treatments: Is on Eliquis CODE STATUS - Full Code per discussion with with Ms Pineda. INPATIENT: 05/03: Dyspnea - Differential Diagnosis: RSV Bronchiolitis / Recent [place] / CHF / PE (not likely as she is on Eliquis) Diagnostic Tests/Labs Reviewed: CBC, CMP, Pro-BNP, Troponin Diagnostic Tests/Labs Ordered & Considered: Repeat Troponins Discussed with: Case Management / Dr Torres ([facility]) Treatments: Consulting Cardiology today regarding the A-Fib/RVR and the Troponin spike. Continue Solu-Medrol IV and Nebs, RT consultations. Recheck troponins in the am. Echo remains pending. RSV Bronchiolitis - Treatments: Continue Solu-Medrol, Duonebs and PRN Albuterol Elevated Troponins - Treatments: Consult Cardiology today. Telemedicine. Hyperkalemia - Lasix given this am. Recheck in the evening. A-Fib with RVR - Treatments: Continue Eliquis, Metoprolol and telemetry. Consulting cardiology today, Dr Torres from [facility]. DM 2 - Treatments: Glucose levels are elevated despite the 6 units of Lantus last night. I will increase to 10 units this evening. Essential HTN - Treatments: Continue Lisinopril. BPs are ok. Liver Lesion (1.6 cm) - Treatments: MRI of her abdomen as an outpatient. VTE Prophy - Treatments: Is on Eliquis CODE STATUS - Remains a Full Code INPATIENT: 05/04: Dyspnea - Differential Diagnosis: RSV Bronchiolitis / CHF Diagnostic Tests/Labs Reviewed: CBC, CMP, Discussed with: Case Management / Nurse Treatments: She remains with dyspnea, wheezing and now hyperkalemia. These could be side effects of her metoprolol I am stopping her metoprolol Contnue nebs, RT support. RSV Bronchiolitis - Treatments: Continue Solu-Medrol, Duonebs and PRN Albuterol Hyperkalemia - Lasix to continue. Lokelma ordered. Low potassium diet. Stop Metoprolol A-Fib with RVR - Treatments: Stop metoprolol and start Digoxin today. DM 2 - Treatments: Glucose levels are elevated despite the 6 units of Lantus last night. I will increase to 10 units this evening. Essential HTN - Treatments: Continue Lisinopril. BPs are ok. Liver Lesion (1.6 cm) - Treatments: MRI of her abdomen as an outpatient. VTE Prophy - Treatments: Is on Eliquis CODE STATUS - Remains a Full Code SOCIAL DETERMINANTS OF HEALTH (SDOH) IMPACTING CARE: 1) Food Insecurity - none 2) Housing Instability - none 3) Transportation Needs - none 4) Utility Difficulties - none 5) Interpersonal safety - none [facility] 05/04/2023 08:20 Demographics Patient Name Age Sex Visit Number Admission Date/Time Attending Physician Room and Bed JEFFREYLEONELENRIQUEIA OBED 1940 82 years Female [id number] 05/01/2023 18:15 Tomas Estevez 111 05/03/2023 SUBJECTIVE DATA CC: RSV Bronchiolitis / A-Fib with RVR Ms Pineda reports she feels the same overall, still with a cough and considerable dyspnea on exertion. No chest pain, N/V/D/C. No abdominal pain. Afebrile 94% O2 Sat on RA 40 BUN / 0.9 Creatinine / 210 Glucose / 5.2 K+ 11.3 WBC / 11.3 Hgb Troponin was up to 0.123 this am Pro-BNP is up to 3,890 (from 1,910 2 days ago) Glucose was 202 to 278 in the past 24 hours Remains on IV Solu-Medrol Echo performed today, results pending OBJECTIVE DATA: Vital signs have been reviewed Lab(s) have been ordered and/or reviewed Intake/Output has been reviewed Radiologic/Diagnostic testing has been ordered and/or reviewed LAB(S): Lab Results: Last 8 Hours Test Results Units Reference Range Ordered Collected Status WBC 11.3 H 10^3uL L=4.8 H=10.8 05/03/2023 07:27 05/03/2023 06:58 final RBC 4.41 10^6uL L=4.20 H=5.40 05/03/2023 07:27 05/03/2023 06:58 final HEMOGLOBIN 11.3 L g/dL L=12.0 H=16.0 05/03/2023 07:27 05/03/2023 06:58 final HEMATOCRIT 37.7 VOL% L=37.0 H=47.0 05/03/2023 07:27 05/03/2023 06:58 final MCV 85.5 fL L=81.0 H=99.0 05/03/2023 07:27 05/03/2023 06:58 final MCH 25.6 L pg L=27.0 H=32.0 05/03/2023 07:27 05/03/2023 06:58 final MCHC 30.0 L g/dL L=32.0 H=36.0 05/03/2023 07:27 05/03/2023 06:58 final RDW 16.9 H % L=11.7 H=15.5 05/03/2023 07:27 05/03/2023 06:58 final PLATELETS 236 10^3uL L=100 H=400 05/03/2023 07:27 05/03/2023 06:58 final %GRAN 88.5 H % L=40.0 H=70.0 05/03/2023 07:27 05/03/2023 06:58 final %LYMPH 7.1 L % L=20.0 H=45.0 05/03/2023 07:27 05/03/2023 06:58 final %MONO 3.8 % L=2.0 H=10.0 05/03/2023 07:27 05/03/2023 06:58 final %EOS 0.1 % L=0.0 H=6.0 05/03/2023 07:27 05/03/2023 06:58 final %BASO 0.1 % L=0.0 H=3.0 05/03/2023 07:27 05/03/2023 06:58 final %IM GRANS 0.4 % L=0.0 H=5.0 05/03/2023 07:27 05/03/2023 06:58 final #NEUT 10.0 H 10^3uL L=1.9 H=7.6 05/03/2023 07:27 05/03/2023 06:58 final #LYMPH 0.8 L 10^3uL L=0.9 H=4.9 05/03/2023 07:27 05/03/2023 06:58 final #MONO 0.4 10^3uL L=0.1 H=0.9 05/03/2023 07:27 05/03/2023 06:58 final #EOS 0.0 10^3uL L=0.0 H=0.6 05/03/2023 07:27 05/03/2023 06:58 final #BASO 0.01 10^3uL L=0.00 H=0.10 05/03/2023 07:27 05/03/2023 06:58 final #IM GRANS 0.0 10^3uL L=0.0 H=7.0 05/03/2023 07:27 05/03/2023 06:58 final %NRB 0.0 L=0.0 H=0.2 05/03/2023 07:27 05/03/2023 06:58 final #NRB 0.000 L=0.000 H=0.012 05/03/2023 07:27 05/03/2023 06:58 final MANUAL DIFF NOT INDICATED NOT INDICATED 05/03/2023 07:27 05/03/2023 06:58 final RBC MORPH NOT INDICATED NOT INDICATED 05/03/2023 07:27 05/03/2023 06:58 final Pro BNP2 3890 H pg/mL L=0 N=6310 05/03/2023 07:44 05/03/2023 06:58 final TROPONIN 0.123 HH ng/mL L=0.000 H=0.033 05/03/2023 00:00 05/03/2023 06:58 final CALLED TO: CINDA LOO S 05/03/2023 00:00 05/03/2023 06:58 final AT: 0737 0737 05/03/2023 00:00 05/03/2023 06:58 final BY: NOLBERTO ARVIZU 05/03/2023 00:00 05/03/2023 06:58 final BEDSIDE GLUCOSE 202 H mg/dl L=74 H=106 05/03/2023 06:21 05/03/2023 06:21 final PHYSICAL EXAM: Most Recent Vital Signs BP (mm/Hg) BP Position/Site Heart Rate Resp Temp (F) SPO2% O2 Device Height (in) Weight (kg) 131/76 LYING/R ARM 86 18 98.6 ORAL 94 % Room Air 21% 68 in 106.65 kg GENERAL: Alert and oriented, in no distress. HEART: IRR/IRR LUNGS: Mild coarse breath sounds, bilaterally. ABDOMEN: Soft, nontender, nondistended EXTREMITIES: No edema ASSESSMENT AND PLAN: INITIAL INPATIENT: Dr Estevez: 05/01: # RSV bronchiolitis received solumedrol. will continue solumedrol and duoneb # pulmonary edema. check echo. bnp 1900s. Lasix dose given. no prior hx of CHF in the past. no leg swelling noted. # afib with rvr: on eliquis at home. not on any bb. will add metoprolol for rate control. received iv diltiazem in the ed. rate currently controlled monitor on telemetry # htn; home medications # dm2: accucheck ac and hs. ssi # HLP: home medications # DVT proph: on eliquis # Code status: full code INPATIENT: 05/02: Dyspnea - Differential Diagnosis: RSV Bronchiolitis / Recent [place] / CHF / PE (not likely as she is on Eliquis) Diagnostic Tests/Labs Reviewed: CBC, CMP, Pro-BNP, Troponin Diagnostic Tests/Labs Ordered & Considered: Repeat Troponins / EKG Discussed with: Case Management / Nursing Staff. Treatments: RSV Bronchiolitis, plus possibly recent [place] and/or CHF? Awaiting repeat troponins. First one was elevated from labs this am after I ordered it. However, this was not called to me nor did the nurse inform me. I saw this lab as I was writing her note at 1915 this evening. Repeat troponins. RSV Bronchiolitis - Treatments: Continue Solu-Medrol, Duonebs and PRN Albuterol Elevated D-Dimer - Treatments: CTA Chest was negative. A-Fib with RVR - Treatments: Continue Eliquis, Metoprolol (started by hospitalist yesterday) Telemetry DM 2 - Treatments: SS Insulin Glucose checks q AC and HS Lantus 6 units q PM 4 CHO diet Hgb A1C is 7.4 Essential HTN - Treatments: Continue Lisinopril. BPs are ok. HLD - Treatments: Continue Atorvastatin Liver Lesion (1.6 cm) - Treatments: MRI of her abdomen as an outpatient. VTE Prophy - Treatments: Is on Eliquis CODE STATUS - Full Code per discussion with with Ms Pineda. INPATIENT: 05/03: Dyspnea - Differential Diagnosis: RSV Bronchiolitis / Recent [place] / CHF / PE (not likely as she is on Eliquis) Diagnostic Tests/Labs Reviewed: CBC, CMP, Pro-BNP, Troponin Diagnostic Tests/Labs Ordered & Considered: Repeat Troponins Discussed with: Case Management / Dr Torres ([facility]) Treatments: Consulting Cardiology today regarding the A-Fib/RVR and the Troponin spike. Continue Solu-Medrol IV and Nebs, RT consultations. Recheck troponins in the am. Echo remains pending. RSV Bronchiolitis - Treatments: Continue Solu-Medrol, Duonebs and PRN Albuterol Elevated Troponins - Treatments: Consult Cardiology today. Telemedicine. Hyperkalemia - Lasix given this am. Recheck in the evening. A-Fib with RVR - Treatments: Continue Eliquis, Metoprolol and telemetry. Consulting cardiology today, Dr Torres from [facility]. DM 2 - Treatments: Glucose levels are elevated despite the 6 units of Lantus last night. I will increase to 10 units this evening. Essential HTN - Treatments: Continue Lisinopril. BPs are ok. Liver Lesion (1.6 cm) - Treatments: MRI of her abdomen as an outpatient. VTE Prophy - Treatments: Is on Eliquis CODE STATUS - Remains a Full Code SOCIAL DETERMINANTS OF HEALTH (SDOH) IMPACTING CARE: 1) Food Insecurity - none 2) Housing Instability - none 3) Transportation Needs - none 4) Utility Difficulties - none 5) Interpersonal safety - none [facility] 05/05/2023 15:28 Demographics Patient Name Age Sex Visit Number Admission Date/Time Attending Physician Room and Bed YE PINEDA OBED 1940 82 years Female [id number] 05/01/2023 18:15 Tomasronn Estevez 111 05/05/2023 SUBJECTIVE DATA CC: RSV Bronchiolitis / A-Fib with RVR Ms Juliann reports she feels the same. No chest pain, N/V/D/C. Cough and dyspnea are present Afebrile 94% O2 Sat on RA 40 BUN / 0.9 Creatinine / 217 Glucose / 4.9 K+ 11.0 WBC / 11.0 Hgb Pro-BNP 4,470. 3,890 2 days ago. I/O = negative 1,370 in the past 24 hours. Glucose was 179 to 262 in the past 24 hours Remains on IV Solu-Medrol OBJECTIVE DATA: Vital signs have been reviewed Lab(s) have been ordered and/or reviewed Intake/Output has been reviewed Radiologic/Diagnostic testing has been ordered and/or reviewed LAB(S): Lab Results: Last 8 Hours Test Results Units Reference Range Ordered Collected Status BEDSIDE GLUCOSE 265 H mg/dl L=74 H=106 05/05/2023 11:57 05/05/2023 11:57 final PHYSICAL EXAM: Most Recent Vital Signs BP (mm/Hg) BP Position/Site Heart Rate Resp Temp (F) SPO2% O2 Device Height (in) Weight (kg) 135/88 LYING/R ARM 68 20 97.8 ORAL 92 % Room Air 21% 68 in 106.68 kg GENERAL: Alert and oriented, in no distress. HEART: IRR/IRR LUNGS: Mild coarse breath sounds, bilaterally. ABDOMEN: Soft, nontender, nondistended EXTREMITIES: No edema ASSESSMENT AND PLAN: INITIAL INPATIENT: Dr Estevez: 05/01: # RSV bronchiolitis received solumedrol. will continue solumedrol and duoneb # pulmonary edema. check echo. bnp . Lasix dose given. no prior hx of CHF in the past. no leg swelling noted. # afib with rvr: on eliquis at home. not on any bb. will add metoprolol for rate control. received iv diltiazem in the ed. rate currently controlled monitor on telemetry # htn; home medications # dm2: accucheck ac and hs. ssi # HLP: home medications # DVT proph: on eliquis # Code status: full code INPATIENT: 05/02: Dyspnea - Differential Diagnosis: RSV Bronchiolitis / Recent [place] / CHF / PE (not likely as she is on Eliquis) Diagnostic Tests/Labs Reviewed: CBC, CMP, Pro-BNP, Troponin Diagnostic Tests/Labs Ordered & Considered: Repeat Troponins / EKG Discussed with: Case Management / Nursing Staff. Treatments: RSV Bronchiolitis, plus possibly recent [place] and/or CHF? Awaiting repeat troponins. First one was elevated from labs this am after I ordered it. However, this was not called to me nor did the nurse inform me. I saw this lab as I was writing her note at 1915 this evening. Repeat troponins. RSV Bronchiolitis - Treatments: Continue Solu-Medrol, Duonebs and PRN Albuterol Elevated D-Dimer - Treatments: CTA Chest was negative. A-Fib with RVR - Treatments: Continue Eliquis, Metoprolol (started by hospitalist yesterday) Telemetry DM 2 - Treatments: SS Insulin Glucose checks q AC and HS Lantus 6 units q PM 4 CHO diet Hgb A1C is 7.4 Essential HTN - Treatments: Continue Lisinopril. BPs are ok. HLD - Treatments: Continue Atorvastatin Liver Lesion (1.6 cm) - Treatments: MRI of her abdomen as an outpatient. VTE Prophy - Treatments: Is on Eliquis CODE STATUS - Full Code per discussion with with Juliann. INPATIENT: 05/03: Dyspnea - Differential Diagnosis: RSV Bronchiolitis / Recent [place] / CHF / PE (not likely as she is on Eliquis) Diagnostic Tests/Labs Reviewed: CBC, CMP, Pro-BNP, Troponin Diagnostic Tests/Labs Ordered & Considered: Repeat Troponins Discussed with: Case Management / Dr Torres ([facility]) Treatments: Consulting Cardiology today regarding the A- Fib/RVR and the Troponin spike. Continue Solu-Medrol IV and Nebs, RT consultations. Recheck troponins in the am. Echo remains pending. RSV Bronchiolitis - Treatments: Continue Solu-Medrol, Duonebs and PRN Albuterol Elevated Troponins - Treatments: Consult Cardiology today. Telemedicine. Hyperkalemia - Lasix given this am. Recheck in the evening. A-Fib with RVR - Treatments: Continue Eliquis, Metoprolol and telemetry. Consulting cardiology today, Dr Torres from [facility]. DM 2 - Treatments: Glucose levels are elevated despite the 6 units of Lantus last night. I will increase to 10 units this evening. Essential HTN - Treatments: Continue Lisinopril. BPs are ok. Liver Lesion (1.6 cm) - Treatments: MRI of her abdomen as an outpatient. VTE Prophy - Treatments: Is on Eliquis CODE STATUS - Remains a Full Code INPATIENT: 05/04: Dyspnea - Differential Diagnosis: RSV Bronchiolitis / CHF Diagnostic Tests/Labs Reviewed: CBC, CMP, Discussed with: Case Management / Nurse Treatments: She remains with dyspnea, wheezing and now hyperkalemia. These could be side effects of her metoprolol I am stopping her metoprolol Contnue nebs, RT support. RSV Bronchiolitis - Treatments: Continue Solu-Medrol, Duonebs and PRN Albuterol Hyperkalemia - Lasix to continue. Lokelma ordered. Low potassium diet. Stop Metoprolol A-Fib with RVR - Treatments: Stop metoprolol and start Digoxin today. DM 2 - Treatments: Glucose levels are elevated despite the 6 units of Lantus last night. I will increase to 10 units this evening. Essential HTN - Treatments: Continue Lisinopril. BPs are ok. Liver Lesion (1.6 cm) - Treatments: MRI of her abdomen as an outpatient. VTE Prophy - Treatments: Is on Eliquis CODE STATUS - Remains a Full Code INPATIENT: 05/05: Dyspnea - Differential Diagnosis: RSV Bronchiolitis / CHF Diagnostic Tests/Labs Reviewed: CBC, CMP, pro-BNP Discussed with: RT / Nurse Treatments: Cough and wheeze may take months to resolve, if they do completely. Metoprolol stopped yesterday. Continue nebs, RT support. Plan is for D/C to home tomorrow. RSV Bronchiolitis - Treatments: Switch to Prednisone PO, BID 40 mg. Hyperkalemia - Lasix to continue, but PO Lokelma x 1 brought her potassium down to 4.9 2nd dose given this am. Recheck in the am. A-Fib with RVR - Treatments: Digoxin holding well. HR 70s to 100s. DM 2 - Treatments: Continue Lantus at 15 units. May have glucose levels lower with switching from Solu-Medrol to Prednisone PO. Essential HTN - Treatments: Continue Lisinopril, we did stop her metoprolol. Liver Lesion (1.6 cm) - Treatments: MRI of her abdomen as an outpatient. VTE Prophy - Treatments: Is on Eliquis CODE STATUS - Remains a Full Code SOCIAL [employer]ERMIN[employer]S OF HE[employer] (SDOH) IMPACTING CARE: 1) Food Insecurity - none 2) Housing Instability - none 3) Transportation Needs - none 4) Utility Difficulties - none 5) Interpersonal safety - none [facility] 05/02/2023 19:29 Demographics Patient Name Age Sex Visit Number Admission Date/Time Attending Physician Room and Bed YE PINEDA OBED 1940 82 years Female [id number] 05/01/2023 18:15 Tomas Estevez 111 05/02/2023 SUBJECTIVE DATA CC: RSV Bronchiolitis / A-Fib with RVR Ms Pineda reports she feels about the same. Still tired and dyspneic. No chest pain, N/V/D/C. No abdominal pain. Afebrile 93% O2 Sat on RA 25 BUN / 192 Glucose 5.3 WBC / 11.5 Hgb Glucose was 211 to 276 since admission Remains on IV Solu-Medrol Echo performed today, results pending OBJECTIVE DATA: Vital signs have been reviewed Lab(s) have been ordered and/or reviewed Intake/Output has been reviewed Radiologic/Diagnostic testing has been ordered and/or reviewed LAB(S): Lab Results: Last 8 Hours Test Results Units Reference Range Ordered Collected Status BASIC METABOLIC PANEL 05/02/2023 00:00 05/02/2023 06:37 registered WBC 5.3 10^3uL L=4.8 H=10.8 05/02/2023 00:00 05/02/2023 06:37 final RBC 4.45 10^6uL L=4.20 H=5.40 05/02/2023 00:00 05/02/2023 06:37 final HEMOGLOBIN 11.5 L g/dL L=12.0 H=16.0 05/02/2023 00:00 05/02/2023 06:37 final HEMATOCRIT 37.8 VOL% L=37.0 H=47.0 05/02/2023 00:00 05/02/2023 06:37 final MCV 84.9 fL L=81.0 H=99.0 05/02/2023 00:00 05/02/2023 06:37 final MCH 25.8 L pg L=27.0 H=32.0 05/02/2023 00:00 05/02/2023 06:37 final MCHC 30.4 L g/dL L=32.0 H=36.0 05/02/2023 00:00 05/02/2023 06:37 final PLATELETS 231 10^3uL L=100 H=400 05/02/2023 00:00 05/02/2023 06:37 final RDW 16.8 H % L=11.7 H=15.5 05/02/2023 00:00 05/02/2023 06:37 final %GRAN 81.3 H % L=40.0 H=70.0 05/02/2023 00:00 05/02/2023 06:37 final %LYMPH 14.3 L % L=20.0 H=45.0 05/02/2023 00:00 05/02/2023 06:37 final %MONO 3.8 % L=2.0 H=10.0 05/02/2023 00:00 05/02/2023 06:37 final %EOS 0.0 % L=0.0 H=6.0 05/02/2023 00:00 05/02/2023 06:37 final %BASO 0.2 % L=0.0 H=3.0 05/02/2023 00:00 05/02/2023 06:37 final #NEUT 4.3 10^3uL L=1.9 H=7.6 05/02/2023 00:00 05/02/2023 06:37 final #LYMPH 0.8 L 10^3uL L=0.9 H=4.9 05/02/2023 00:00 05/02/2023 06:37 final #MONO 0.2 10^3uL L=0.1 H=0.9 05/02/2023 00:00 05/02/2023 06:37 final #EOS 0.0 10^3uL L=0.0 H=0.6 05/02/2023 00:00 05/02/2023 06:37 final #BASO 0.01 10^3uL L=0.00 H=0.10 05/02/2023 00:00 05/02/2023 06:37 final #IM GRANS 0.0 10^3uL L=0.0 H=7.0 05/02/2023 00:00 05/02/2023 06:37 final %IM GRANS 0.4 % L=0.0 H=5.0 05/02/2023 00:00 05/02/2023 06:37 final %NRB 0.0 L=0.0 H=0.2 05/02/2023 00:00 05/02/2023 06:37 final #NRB 0.000 L=0.000 H=0.012 05/02/2023 00:00 05/02/2023 06:37 final MANUAL DIFF NOT INDICATED NOT INDICATED 05/02/2023 00:00 05/02/2023 06:37 final RBC MORPH NOT INDICATED NOT INDICATED 05/02/2023 00:00 05/02/2023 06:37 final BEDSIDE GLUCOSE 211 H mg/dl L=74 H=106 05/02/2023 06:19 05/02/2023 06:19 final PHYSICAL EXAM: Most Recent Vital Signs BP (mm/Hg) BP Position/Site Heart Rate Resp Temp (F) SPO2% O2 Device Height (in) Weight (kg) 128/80 LYING/R ARM 70 20 98 ORAL 91 % Room Air 21% 68 in 106.68 kg GENERAL: Alert and oriented, in no distress. HEART: IRR/IRR LUNGS: Mild coarse breath sounds, bilaterally. ABDOMEN: Soft, nontender, nondistended EXTREMITIES: No edema ASSESSMENT AND PLAN: INITIAL INPATIENT: Dr Estevez: 05/01: # RSV bronchiolitis received solumedrol. will continue solumedrol and duoneb # pulmonary edema. check echo. bnp . Lasix dose given. no prior hx of CHF in the past. no leg swelling noted. # afib with rvr: on eliquis at home. not on any bb. will add metoprolol for rate control. received iv diltiazem in the ed. rate currently controlled monitor on telemetry # htn; home medications # dm2: accucheck ac and hs. ssi # HLP: home medications # DVT proph: on eliquis # Code status: full code INPATIENT: 05/02: Dyspnea - Differential Diagnosis: RSV Bronchiolitis / Recent [place] / CHF / PE (not likely as she is on Eliquis) Diagnostic Tests/Labs Reviewed: CBC, CMP, Pro-BNP, Troponin Diagnostic Tests/Labs Ordered & Considered: Repeat Troponins / EKG Discussed with: Case Management / Nursing Staff. Treatments: RSV Bronchiolitis, plus possibly recent [place] and/or CHF? Awaiting repeat troponins. First one was elevated from labs this am after I ordered it. However, this was not called to me nor did the nurse inform me. I saw this lab as I was writing her note at 1915 this evening. Repeat troponins. RSV Bronchiolitis - Treatments: Continue Solu-Medrol, Duonebs and PRN Albuterol Elevated D-Dimer - Treatments: CTA Chest was negative. A-Fib with RVR - Treatments: Continue Eliquis, Metoprolol (started by hospitalist yesterday) Telemetry DM 2 - Treatments: SS Insulin Glucose checks q AC and HS Lantus 6 units q PM 4 CHO diet Hgb A1C is 7.4 Essential HTN - Treatments: Continue Lisinopril. BPs are ok. HLD - Treatments: Continue Atorvastatin Liver Lesion (1.6 cm) - Treatments: MRI of her abdomen as an outpatient. VTE Prophy - Treatments: Is on Eliquis CODE STATUS - Full Code per discussion with with Ms Pineda.
--- OUTSIDE RECORDS SUMMARY | 2024-10-08 13:02 | XMS_ITS | Data Portability ---
Author Organization [facility], [address] [facility] [place] Address [address] [place] [address] Care Team Providers Care Permit Review Assistant Name Role Phone MICHAEL THOMAS Primary Care Provider Assessment Encounter Date Assessment Date Assessment LastModified by Organization Details LastModified Time 04/11/2024 04/11/2024 SUBJECTIVE: This is an 83-year-old, right-hand dominant, female who is here for follow up of numbness and tingling in the left hand. She is status post left carpal tunnel release, left wrist Guyon's canal release, and left cubital tunnel release, performed on March 24, 2024. She reports that her left hand remains numb and weak. She presents to our clinic by herself today. PHYSICAL EXAMINATION: Examination of the left upper extremity demonstrates the incisions on the medial aspect of the left elbow and palmar aspect of the left wrist are healing well. No evidence of infection. She has decreased sensation in both the median nerve and ulnar nerve distributions. Her left hand is well perfused with good capillary refill. ASSESSMENT AND PLAN: Clinical findings were discussed with the patient today. hand. She has been 2 weeks out of surgery. Her incisions are healing well; however, her left hand remains weak. Therapy was ordered today for gentle range of motion and stretching. She will return to our clinic in 6 weeks for reevaluation. She will call or return if she has any questions or concerns. [email or web address] Not available 04/11/2024 21:19:52 06/10/2024 06/10/2024 SUBJECTIVE: This is an 83-year-old, right-hand dominant, female who is here for follow up of numbness and tingling in the left hand. She is status post left carpal tunnel release, left wrist Guyon's canal release, and left cubital tunnel release, performed on March 24, 2024. She reports that her left hand remains numb and weak. She has been working with therapy, which did not provide much relief. She has difficulty with making a fist with the left hand. Intermittent aching, sharp, 1/10 on pain intensity scale. She presents to our clinic by herself today. PHYSICAL EXAMINATION: Examination of the left upper extremity demonstrates the incisions on the medial aspect of the left elbow and palmar aspect of the left wrist are healing well. No evidence of infection. She has decreased sensation in both the median nerve and ulnar nerve distributions. Her left hand is well perfused with good capillary refill. ASSESSMENT AND PLAN: Clinical findings were discussed with the patient today. She has been 3 months out of surgery. She still has weakness and numbness and tingling in the left hand. I explained to Lisa that recuperating from left carpal tunnel and cubital tunnel release at the age of [age] years old might take a while. At this juncture, she will continue exercises at home. Gentle range of motion and stretching were discussed. She will continue to use the left hand as tolerated. She will return to our clinic in 3 months for reevaluation. She will call or return if she has any questions or concerns. [email or web address] Not available 06/10/2024 14:25:53 09/18/2024 09/18/2024 The patient states that her DCS battery is currently working. She was advised to call the [facility] to find out more info about her settings. There is NO CHARGE for this visit [email or web address] Not available 09/18/2024 15:23:08 Plan of Treatment Reminders Order Date Submit Date Provider Last Modified By Organization Details Last Modified Time Details Appointments None record ed. Lab None record ed. Referral None record ed. Procedures None record ed. Surgeries None record ed. Imaging None record ed. Medication Orders None record ed. Patient TargetsNo targets recorded. Patient InstructionsNo instructions recorded. Reason for Referral None Reported. Results Created Date Observation Date Name Description Value Unit Range Abnormal Flag Note LastModifiedBy Organization Detail LastModifiedTime 03/24/20 24 03/24/2024 gluco se, finge rstic k, blood Blood Glucose: mg/dl 111 Not Available Admini strativ e Office ([place]) [address] [facility], [place], [address], 03/24/2024 12:44:06 07/20/19 25 02/15/2021 imagi ng/di agnos tic resul t No observ ation record ed. [email or web address] Not Available 01:06:48 09/19/19 25 09/18/2024 XR, thora colum bar spine , 2 or [address] [address] Teleph one Name: Fady Humphreys [id number] am Date: 2024 Age: 84Phys ician: Sunday mustafa MD, Maxine : 1940Ex aminat ion: XR THORAC OLUMBA R 2 VIEW EXAMIN ATION: XR THORAC OLUMBA R 2 VIEW HISTOR Y: Pain in back for 2 years with no injury . Histor y of scolio sis and osteop orosis . Stimul ator placed 2 years ago. COMPAR LATRELL: None TECHNI QUE: Thorac olumba r spine AP and latera l views FINDIN GS: There is modera te degene rative disc diseas e in the thorac olumba r spine. There is modera te leftwa rd thorac olumba r curvat ure center ed at the level of the L2 verteb ral body. The pedicl es are intact . There is no acute fractu re, sublux ation, or disloc ation identi fied in the thorac olumba r spine. Normal bone minera lizati on. Signif icant facet arthro brian. IMPRES LUKAS: 1. There is modera te leftwa rd thorac olumba r curvat ure center ed at the level of the L2 verteb ral body. 2. There is no acute fractu re, sublux ation, or disloc ation in the thorac olumba r spine. Electr onical ly signed in Varma cribe by: LUIS JOHNSON MD on:08/25 1:06 PM cc: Page PAGE 1 of [facility] 1 [email or web address] Only - Sd Radiology [facility], [address], 09/18/2024 16:26:08 09/28/19 25 03/27/2019 imagi ng/di agnos tic resul t No observ ation record ed. [email or web address] Not Available 0 09/27/2024 06:41:07 09/28/19 25 04/17/2018 imagi ng/di agnos tic resul t No observ ation record ed. [email or web address] Not Available 0 09/27/2024 06:41:08 09/28/19 25 09/20/2017 imagi ng/di agnos tic resul t No observ ation record ed. [email or web address] Not Available 0 09/27/2024 06:41:11 09/28/19 25 09/23/2018 imagi ng/di agnos tic resul t No observ ation record ed. [email or web address] Not Available 0 09/27/2024 06:41:11 09/28/19 25 12/16/2018 imagi ng/di agnos tic resul t No observ ation record ed. [email or web address] Not Available 0 09/27/2024 06:41:15 Result Notes Documentation Provider Name and Address Organization Details Recorded Time Xr, Thoracolumbar Spine, 2 Or 3 View : [address] [address] Name: Frida Humphreys Date: 09/18/2024 Age: 84Physician: MD Ajit, Maxine : 1940Examination: XR THORACOLUMBAR 2 VIEW EXAMINATION: XR THORACOLUMBAR 2 VIEW HISTORY: Pain in back for 2 years with no injury. History of scoliosis and osteoporosis. Stimulator placed 2 years ago. COMPARISON: None TECHNIQUE: Thoracolumbar spine AP and lateral views FINDINGS: There is moderate degenerative disc disease in the thoracolumbar spine. There is moderate leftward thoracolumbar curvature centered at the level of the L2 vertebral body. The pedicles are intact. There is no acute fracture, subluxation, or dislocation identified in the thoracolumbar spine. Normal bone mineralization. Significant facet arthropathy. IMPRESSION: 1. There is moderate leftward thoracolumbar curvature centered at the level of the L2 vertebral body. 2. There is no acute fracture, subluxation, or dislocation in the thoracolumbar spine. Electronically signed in PowerScribe by: LUIS JOHNSON MD on:09/18/2024 1:06 PM cc: Page PAGE 1 of [facility] 1 Maxine Fong MD [address] [place] [address], [phone], [facility] 09/18/2024 16:26:08 Problems Name Problem SNOMED Code Status Onset Date Resolution Date Notes Provider Name and Address Organization Details Recorded Time Paresthesi a of left upper limb 634982219959 [address] [facility] 4 09:38:32 Pain of left hand 935150375883 103 Active 2023 Gisela Lara [facility] 5 14:23:17 Carpal tunnel syndrome of left wrist 958668160424 102 Active 2023 Shaun Juares MD [address] [place] [address], [phone], [facility] 5 13:17:44 Ulnar neuropathy 876898505 Active 2023 Roma Fields MD [address] [place] [address], [phone], [facility] 4 11:18:34 Chronic low back pain 818668470 Active 2023 Kelly Quezada APRN, [employer] [address] [place] [address], [phone], [facility] 4 10:53:13 Cosmetic procedure Active 2023 Adelaida Olson [address] [place] [address], [phone], [facility] 4 10:29:04 Cosmetic surgery Active 2023 Adelaida Olson [address] [place] [address], [phone], [facility] 4 10:29:11 Split ear lobe 953411395 Active 2023 Heather Rothman MD [address] [place] [address], [phone], [facility] 4 10:36:55 Weakness of hand 595908208 Active 2024 Lora Perez [facility] 5 19:06:48 Laceration of ear region 953665390 Active 2023 Sushma Moya [facility] 4 08:40:05 Problem Notes None recorded. Procedures Surgical History Date Name Laterality Status Provider Name and Address Organization Details Recorded Time 03/24/20 24 SC Blank Procedure Template completed Shaun Juares MD [address] [place] [address], [phone], [facility] 03/24/2024 19:26:30 03/24/20 24 decompression of left median nerve completed [facility] 04/21/2024 10:34:33 03/24/20 24 neurolysis of peripheral nerve completed [facility] 04/21/2024 10:38:18 03/24/20 24 procedure on wrist completed [facility] 04/21/2024 10:38:58 01/31/20 24 SC EMG Procedure completed Pippa Vieyra [facility] 01/31/2024 12:24:34 Imaging Results None recorded. Procedure Notes None recorded. Medical Equipment None Reported. Allergies No known drug allergies Medications Name Sig Start Date Stop Date Status Note LastModified by Organization Details LastModified Time furosemide 40 mg tablet TAKE 1 TABLET BY MOUTH ONCE DAILY active Not Available Not Available No t Available atorvastati n 40 mg tablet TAKE 1 TABLET BY MOUTH ONCE DAILY AT BEDTIME active Not Available Not Available No t Available metformin 500 mg tablet TAKE 1 TABLET BY MOUTH TWICE DAILY active Not Available Not Available No t Available hydrocodone 5 mg-acetamin ophen 325 mg tablet TAKE 1 TABLET BY MOUTH 4 TIMES DAILY 02/18 completed Not Available Not Available Not Available prednisone 20 mg tablet TAKE 2 TABLETS BY MOUTH ONCE DAILY FOR 3 DAYS 02/18 completed Not Available Not Available Not Available Accu-Chek Softclix Lancets USE 1 NEW LANCET TO CHECK GLUCOSE ONCE DAILY active Not Available Not Available No t Available Space Chamber USE DIRECTED active Not Available Not Available No t Available digoxin 250 mcg (0.25 mg) tablet TAKE 1 TABLET BY MOUTH ONCE DAILY active Not Available Not Available No t Available oxycodone-a cetaminophe n 5 mg-325 mg tablet TAKE 1 TO 2 TABLETS BY MOUTH EVERY 4 HOURS NEEDED . DO NOT EXCEED 6 PER 24 HOURS 02/18 completed Not Available Not Available Not Available benzonatate 100 mg capsule TAKE 1 CAPSULE BY MOUTH THREE TIMES DAILY NEEDED 02/18 completed Not Available Not Available Not Available albuterol sulfate HFA 90 mcg/actuati on aerosol inhaler INHALE 2 PUFFS BY MOUTH EVERY 4 TO 6 HOURS NEEDED FOR SHORTNESS OF BREATH 02/18 completed Not Available Not Available Not Available lisinopril 40 mg tablet TAKE 1 TABLET BY MOUTH ONCE DAILY active Not Available Not Available No t Available Accu-Chek Aline Plus test strips USE 1 STRIP TO CHECK GLUCOSE ONCE DAILY active Not Available Not Available No t Available Eliquis 5 mg tablet TAKE 1 TABLET BY MOUTH TWICE DAILY active Not Available Not Available No t Available Lagevrio 200 mg capsule (EUA) TAKE 4 CAPSULES BY MOUTH EVERY 12 HOURS FOR 5 DAYS. MAY BE TAKEN WITH OR WITHOUT FOOD. 02/18 completed Not Available Not Available Not Available Ozempic 0.25 mg or 0.5 mg (2 mg/3 mL) subcutaneou s pen injector INJECT 0.25MG SUBCUTANE OUSLY ONCE A WEEK FOR 4 WEEKS, THEN INCREASE TO 0.5MG EVERY WEEK active Not Available Not Available No t Available Vitals Date Recorded Body height Body mass index (BMI) Body weight Provider Name and Address Organization Details Last Updated DateTime 04/11/2024 172.72 cm 34.4 kg/m2 888999.88 g Gisela Chambers [facility] 04/11/2024 13:43:13 Date Recorded Body height Body mass index (BMI) Body weight Provider Name and Address Organization Details Last Updated DateTime 06/10/2024 172.72 cm 34.4 kg/m2 458204.88 g Denisa Phillip [facility] 06/10/2024 12:10:49 Date Recorded Body height Body mass index (BMI) Body weight Heart rate Oxygen saturation Oxygen saturation in Arterial blood by Pulse oximetry Provider Name and Address Organization Details Last Updated DateTime 172.72 cm 33.3 kg/m2 67623.7 3 g 53 /min 92 % 92 % Glendy zarco [facility] 13:27:35 Social History Question Answer Notes LastModified by Organizat ion Details LastModified Time Tobacco Smoking Status Never Smoker Juan Daniel Croft [facility] 12/18/2023 09:19:52 Any Work Exposures? Retired Information not available 06/10/2024 Sex: Unknown Functional Status Question Answer Note LastModified by Organization D etails LastModified Time Are you currently employed? No Information not available 06/10/2024 Mental Status None recorded. Family History Nothing Reported. Medical History No medical history recorded. Gynecological HistoryNo gynecological history recorded. Obstetrics History GPAL:G 0 P 0 0 0 0 Immunizations Vaccine Type Date Status Note Provider Nam e and Address Organization Details Recorded Time Influenza, adjuvanted, trivalent, PF 8 completed Juan Daniel Croft [facility] 12/18/2023 09:19:38 zoster recombinant 0 completed Juan Daniel Croft [facility] 12/18/2023 09:19:38 zoster recombinant 9 completed Juan Daniel Croft [facility] 12/18/2023 09:19:38 Influenza, high-dose, quadrivalent, PF 2 completed Juan Daniel Croft [facility] 12/18/2023 09:19:38 Influenza, high-dose, quadrivalent, PF 3 completed Juan Daniel Croft [facility] 12/18/2023 09:19:38 Influenza, high-dose, quadrivalent, PF 0 completed Juan Daniel Croft [facility] 12/18/2023 09:19:38 Influenza, high-dose, quadrivalent, PF 1 completed Juan Daniel Croft [facility] 12/18/2023 09:19:38 COVID-19, mRNA, LNP-S, PF, 30 mcg/0.3 mL dose 1 completed Juan Daniel Croft [facility] 12/18/2023 09:19:38 COVID-19, mRNA, LNP-S, PF, 30 mcg/0.3 mL dose 1 completed Juan Daniel Croft [facility] 12/18/2023 09:19:38 COVID-19, mRNA, LNP-S, PF, 30 mcg/0.3 mL dose 1 completed Juan Daniel Croft [facility] 12/18/2023 09:19:38 Pneumococcal conjugate PCV20, polysaccharide [id number] conjugate, adjuvant, PF 4 completed Juan Daniel Croft [facility] 12/18/2023 09:19:38 COVID-19, mRNA, LNP-S, PF, 30 mcg/0.3 mL dose, priya-sucrose 2 completed Juan Daniel Croft [facility] 12/18/2023 09:19:38 COVID-19, mRNA, LNP-S, bivalent, PF, 50 mcg/0.5 mL or 25mcg/0.25 mL dose 3 completed Juan Daniel Croft [facility] 12/18/2023 09:19:38 COVID-19, mRNA, LNP-S, bivalent, PF, 30 mcg/0.3 mL dose 2 completed Juan Daniel Croft [facility] 12/18/2023 09:19:38 RSV, recombinant, protein subunit RSVpreF, adjuvant reconstituted, 0.5 mL, PF 4 completed Juan Daniel Croft [facility] 12/18/2023 09:19:38 COVID-19, mRNA, LNP-S, PF, 50 mcg/0.5 mL 3 completed Juan Daniel Croft [facility] 12/18/2023 09:19:38 influenza, unspecified formulation 1 completed Juan Daniel Croft [facility] 12/18/2023 09:19:38 Tdap 0 completed uJan Daniel Croft [facility] 12/18/2023 09:19:38 zoster live 5 completed Juan Daniel Croft [facility] 12/18/2023 09:19:38 Influenza, high-dose, trivalent, PF 9 completed Juan Daniel Croft [facility] 12/18/2023 09:19:38 Influenza, high-dose, trivalent, PF 7 completed Juan Daniel Croft [facility] 12/18/2023 09:19:38 Influenza, high-dose, trivalent, PF 6 completed Juan Daniel Croft [facility] 12/18/2023 09:19:38 COVID-19, mRNA, LNP-S, PF, 50 mcg/0.5 mL 4 [facility] 17:58:40 Influenza, high-dose, trivalent, PF 4 completed Gisela Lara [facility] 06/09/2024 17:58:40 Past Encounters Encounter ID Performer Location Encounter Start Date Encounter Closed Date Diagnosis/Indication Diagnosis SNOMED-CT Code Diagnosis ICD10 Code Diagnosis Note [id number] Heather Rothman MD [facility] [place] [place] [address] [place] [address], [place] [address] 07/18/2023 10:03:52 07/18/2023 11:07:44 Cosmetic surgery 81330204 Z41.1 Split ear lobe 177325010 H61.732 [id number] Heather Rothman MD [facility] [place] [address] [place] [facility] [place] [address] 08/31/2023 11:44:02 08/31/2023 14:07:20 Laceration of ear region 716284661 S01.312A [id number] Heather Rothman MD [facility] [place] [address] [facility] [place] [facility] [place] [address] 11/07/2023 10:15:45 11/07/2023 17:04:53 [id number] Shaun Juares MD [address] [facility] ([place]) [address] [place] [address],[address] [place] [address] 12/18/2023 09:01:57 12/18/2023 09:42:41 Paresthesia of left upper limb 9711222605 6536735 R20.2 Pain of left hand 324555 7113 42383 M79.642 Additional diagnosis detail: Left hand pain [id number] Roma Fields MD [facility] [place]) [address] [place] [address] 01/31/2024 09:36:35 02/01/2024 06:23:35 Carpal tunnel syndrome of left wrist 3795338937 30260 G56.02 Ulnar neuropathy 5274573 05 G56.22 [id number] Kelly Quezada, PALLET REPAIRER, MANAGER [employer] [address] ([place]) [address] [place] [address],[address] Floor [facility] [place] [address] 02/07/2024 12:10:00 02/07/2024 15:03:40 Chronic low back pain 008392293 M54.50 G89.29 [id number] Shaun Juares MD [address] [place]) [address] [place] [address],[address] [place] [address] 02/19/2024 14:25:05 02/23/2024 04:35:53 Carpal tunnel syndrome of left wrist 8626241321 95203 G56.02 Ulnar neuropathy 2289970 05 G56.22 Postproced ural state finding 533941886 Z98.890 [id number] Fuentes Mandujano MD [facility] [place] [address] [facility] [place] [address] 03/24/2024 10:46:41 03/28/2024 09:36:15 [id number] Shaun Juares MD [facility] [place] [address] [place] [address], 2[address] [place] [address] 03/24/2024 10:46:42 03/24/2024 18:22:34 [id number] Shaun Juares MD [address] [facility] [place] [address] [place] [address] 04/11/2024 12:59:40 04/11/2024 15:34:36 Postoperative visit 432052800 Z48.89 [id number] Shaun Juares MD [address] [facility] [place] [address] [place] [address] 06/10/2024 11:28:53 06/10/2024 12:06:34 Postoperative visit 511622601 Z48.89 Weakness of hand 5492879 06 R29.898 [id number] Maxine freeman MD [address] [facility] [place] [address] [place] [address] 09/18/2024 12:38:27 09/18/2024 14:22:28 Chronic low back pain 456249808 M54.50 G89.29 Health Concerns Section Related Observation LastModified by Organization Elder garcia LastModified Time None Recorded Concern Status LastModified by Organization Details LastModified Time None Recorded Advance Directives Directive None Recorded Payers Insurance Date Sequence Insurance Name Policy Number Policy Hercules Covered Member ID Hercules Member ID Guarantor Name 09/26/2024 1 [facility] (MEDICARE REPLACEMENT/A DVANTAGE - PPO) [id number] Frida Rollins Juliann [id number] Frida Rollins Juliann 09/25/2024 2 [place] [facility] OF PUBLIC AID Frida Rollins Juliann [id number] Frida Rollins Juliann Notes Date Note Type Note Provider Name and Address Organization Details Recorded Time 4 text/html [facility] PRE-ANESTHETIC EVALUATIONReported bypatient.Reason for Visit:PROPOSED PROCEDURE: LEFT ELBOW ULNAR NERVE RELEASE REVISION & LEFT CARPAL TUNNEL RELEASE, GUYONS CANAL RELEASE & HYPOTHENAR FLAP TRANSFER; SURGEON: Blanquita; PREOP DIAGNOSIS: Carpal tunnel syndrome, left upper limb Review of Systems General:Exercise tolerance moderate; Able to walk at least one block; Denies SOB, FULTON, PND; Denies chest pain or chest tightness Cardiac:Hypertension; Hyperlipidemia; Atrial fibrillation ; Patient is on Eliquis. Last dose was 4 days ago.; Loop recorder; 05/19 TTE: EF 55 to 60%, normal RV size and function, mild to moderate MR/TR, RVSP 35 Endo:NIDDM Neuro:H/O stroke ,no residual deficits (2018); Spinal Cord Stimulator Hem/Onc:Breast cancer hx Prior Anesthetic Complication:no history of anesthesia complications Family Anesthetic Hx:no history of anesthesia complications Physical Exam: AirwayMP III TeethPartial upper NeckWNL CardiovascularIrregular rhythm RespiratoryClear to auscultation bilaterally GastrointestinalNPO status >6 hrs solids, >2 hrs clear liquids Vital Signs:Vital signs reviewed. Please refer to nursing preop note for values Assessment:ASA PS: III Plan:General Discussion:I have discussed with the patient the anesthetic plan, alternatives, pertinent risks, and complications; including but not limited to PONV, dental injury, sore throat, KS, stroke, etc. All questions were answered. Patient verbalize(s) understanding and agree(s) to proceed. Fuentes Mandujano MD [address] [place] [address], [phone], [facility] 03/24/2024 12:44:15 5 text/html Room Number: 1064Reason for visit: P/O LCTR, LCUTRDominant Hand: RIGHTDate of injury: NKIHow injury occurred: NKIProcedure: LCTR, LCUTRDate of surgery: 03/24/2024Location of surgery: ASCPain Scale: 1/10Symptoms: TINGLING, NUMBNESS, TIGHTNESS, WEAKNESSDescription of pain: INTERMITTENT BURNING, RADIATINGPain wakes at night: NONumber of times: 0Work status: RETIREDAdditional comments: [facility] AD[facility] PPOSmoking Status: NEVER Shaun Juares MD [address] [place], [address], [facility] 04/13/2024 18:07:59 5 text/html HPI:Initial consult: 02/07/24SAS referred by Dr. Thomas for DCS replacement. Pt states she is here to just establish. She will need DCS replaced sometime next year. Pt has had 3 surgeries for this. Pt has seen Dr. Polo for this in the past. Dr. Bishop did her lumbar surgeries, presents to establish care with a local neurosurgeon for replacement of spinal cord stimulator. Her battery end-of-life is October 2024. She is also looking to establish care with a pain management physician in [place], so we will assist her in referral. Overall she feels that her back pain is well-controlled with the spinal cord stimulator, she has no radicular symptoms. Will contact her next year and bring her to discuss risks and benefits when it is closer to the time. will obtain ap/lateral thoracolumbar xrays prior to the visit. 09/18/24LAS FU to discuss DCS replacement. Patient states that her DCS battery is currently working. She was advised to call the [facility] to find out more info about her settings. Past Medical/Surgical History:HTN, CHF, afib, DM2, CVA. Pertinent medications include oxycodone/acetaminophen, Eliquis. PSH of cervical fusion. PSH in lumbar spine- Dr. Scott Bishop ~2014. Conserva tive Measures:EMG (Donnie; 01/31/24) Pertin ent Imaging: Maxine fernández MD [address] , [place], [address], [facility] 09/18/2024 16:42:37 OBGyn Episode No OBEpisode recorded.
--- OUTSIDE RECORDS SUMMARY | 2024-10-08 13:03 | XMS_ITS ---
Author Organization Unknown Address [address] [place] [address] [phone] Phone Care Team Providers Care Rf Technician Name Role Phone JOON DAVEY Attending Unavailable [...] 208 CVX Pneumococcal conjugate PCV20 , polysaccharide NNC876 conjugate, adjuvant, PF 07/16/2023 Completed 216 CVX [...] em Smoking History Never smoker (Never Smoked) [id number] SNOMED CT Sex Female Medications Medication Start Date End Date Route Frequency Dose Code Code System Medication Instructions Home Meds Eliquis 5MG Oral Tablet 02/14/2022 Unknown ORAL EVERY 12 HOURS 5 MILLIGRAMS [id number] RxNorm TAKE 5 MILLIGRAMS ORAL EVERY 12 HOURS Lisinopril 40MG Oral Tablet 02/14/2022 Unknown ORAL TWICE A DAY 40 MILLIGRAMS 829093 RxNorm TAKE 40 MILLIGRAMS ORAL TWICE A DAY metFORMIN HCl 500MG Oral Tablet 02/14/2022 Unknown ORAL TWICE A DAY WITH MEALS 500 MILLIGRAMS 614217 RxNorm TAKE 500 MILLIGRAMS ORAL TWICE A DAY WITH MEALS Aspirin 81MG Oral Tablet, Chewable 05/06/2023 Unknown ORAL ONCE A DAY 81 MILLIGRAMS 818841 RxNorm TAKE 81 MILLIGRAMS ORAL ONCE A DAY Digoxin 0.125MG Oral Tablet 05/06/2023 Unknown ORAL ONCE A DAY 0.25 MILLIGRAMS RxNorm TAKE 0.25 MILLIGRAMS ORAL ONCE A DAY Furosemide 40MG Oral Tablet 05/06/2023 Unknown ORAL EVERY 48 HOURS 40 MILLIGRAMS 708207 RxNorm TAKE 40 MILLIGRAMS ORAL EVERY 48 HOURS predniSONE 20MG Oral Tablet 05/06/2023 Unknown ORAL ONCE A DAY 40 MILLIGRAMS 873142 RxNorm TAKE 40 MILLIGRAMS ORAL ONCE A DAY Atorvastatin Calcium 40MG Oral Tablet 05/06/2023 Unknown ORAL AT BEDTIME 40 MILLIGRAMS 287187 RxNorm TAKE 40 MILLIGRAMS ORAL AT BEDTIME Albuterol Sulfate HFA 0.09MG/1Actu ation Inhalation Suspension 05/06/2023 Unknown INHALATI ON NEEDED EVERY 4 HOURS 2 Puff 5412261 RxNorm 2 Puff INHALATION NEEDED EVERY 4 HOURS Procare Inhaler Spacer Chamber 05/06/2023 Unknown BY MOUTH DIRECTED 1 APPLICATOR RxNorm TAKE 1 APPLICATOR BY MOUTH DIRECTED Tessalon Perles 100MG Oral Capsule, Liquid Filled 05/06/2023 Unknown BY MOUTH NEEDED 3 TIMES A DAY 1 CAPSULE 887106 RxNorm TAKE 1 CAPSULE BY MOUTH NEEDED [...] Status Code Code System RSV INFECTION active 26062811 SNOMED -CT ATRIAL FIBRILLATION W/ RVR active 696250109967564 SNOMED-CT TYPE 2 DM active 94921222 SNOMED-CT ESSENTIAL HYPERTENSION active 0664990 0 SNOMED-CT MIXED HYPERLIPIDEMIA active 696403466 SNOMED-CT LESION OF LIVER active 264282369 SNOM ED-CT COUGH active 78899187 SNOMED-CT DYSPNEA active 049902652 SNOMED-CT INFLUENZA 05/06/2023 resolved 3806150 SNOMED-CT Allergies and Adverse Reactions Allergy Substance Reaction Severity Start Date Concern Status Co de Code System No Known Allergies Moderate Active 500820793 SN OMED-CT Plan of Treatment US Echo With Color (98235) 10/20/2024 US Carotid Doppler (02224) 04/03/2024 Digital Tico Screen R Unilateral (00150) 11/10/2024 Encounters Encounter Diagnosis Start Date Code Code Sys tem Low back pain, unspecified 06/26/2024 S NOMED-CT Personal Care Team Section
--- OUTSIDE RECORDS SUMMARY | 2024-10-08 13:03 | XMS_ITS ---
Author Organization [employer] [facility] Address [address] [place] [address] Care Team Providers Care Hollow Handle Bench Worker Name Role Phone EDWARD WAN Unavailable [phone] Juan Dash Unavailable Unavailable Encounters Encounter Location Date Provider Diagnosis [facility] [id number] [place] [phone] 09/15/2024 EDWARD WAN Plan Of Treatment Next Appt Details Provider Name:EDWARD NELSON, 11/03/2024 03:45:00 PM, [place], [address], Progress Notes * JEFFREYGLEN StewartYE ADOB:1940 (84 yo F)Acc No.[id number]:09/15/2024 Patient: YE DEL VALLE Provider: Shantal Wan DPM :1940 A ge:84 Y S ex:Female Date:09/15/2024 Address:[address] [place], [place] [id number] Subjective: * Chief Complaints: * * Medical History: Objective: * Vitals: Assessment: Plan: * Treatment: * Billing Information: * Visit Code: * Procedure Codes: * Electronic signature of MAC WAN DPM on 10/08/2024 at 01:02 PM CDT Sign off status: Pending * Provider: Shantal Wan DPM Date: 09/15/2024 Generated for Jarod patterson/Matti/eTransmitting on: 10/08/2024 01:02 PM CDT
--- OUTSIDE RECORDS SUMMARY | 2024-10-08 13:03 | XMS_ITS | Clinical Summary ---
Author Organization [facility] Address [address] [place] [address] Care Team Providers Care Roll Forming Machine Operator Name Role Phone Bunny Dash MD Primary Care Provider [phone] Alok Guzman MD Unavailable Martha Bennett MD Unavailable Allergies No known active allergies Medications diclofenac sodium 1 % gel Apply 1 g topically 4 (four) times daily as needed. Active SOFTCLIX LANCETS Mis USE 1 TO CHECK GLUCOSE ONCE DAILY 9 Active Blood Glucose Monitoring Suppl (ACCU-CHEK EDWARD PLUS) w/Device Kit 9 Active HYDROcodone-abhilash taminophen 5-325 MG tablet Take 1 tablet by mouth every 6 (six) hours as needed. Active metFORMIN (GLUCOPHAGE) 500 MG tablet Take 500 mg by mouth 2 (two) times a day. Active lisinopril (PRINIVIL) 40 MG tablet Take 40 mg by mouth 2 (two) times daily. Active ondansetron (ZOFRAN) 4 MG tablet Take 4 mg by mouth every 8 (eight) hours as needed. Active ACCU-CHEK EDWARD PLUS test strip 1 strip daily. 3 Active atorvastatin (LIPITOR) 40 MG tablet Take 40 mg by mouth nightly at bedtime. Active vitamin D2, ergocalciferol, (DRISDOL) 1.25 mg capsule Take 50,000 Units by mouth daily. Active amitriptyline (ELAVIL) 25 MG tablet Take 2 tablets (50 mg total) by mouth daily. Active baclofen (LIORESAL) 10 MG tablet Take 2 tablets (20 mg total) by mouth. Active ELIQUIS 5 MG tablet Take 1 tablet by mouth twice daily 180 tablet 3 Active Active Problems Problem Noted Date Diagnosed Date snf current use of anticoagulant therapy 0 05/14/2022 Paroxysmal atrial fibrillation (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[facility]) 07/16/2017 HTN (hypertension) 07/16/2017 Chronic pain syndrome 03/01/2017 Somatic symptom disorder, pe rsistent, severe, with predominant pain 03/01/2017 Family History Medical History Relation Comments Hypertension Father Relation Status Comments Brother Father Mother Sister 1 Sister 2 Sister 3 Alive Social History Tobacco Use Types Packs/Day Years [...] file Not on file Not on file Last Filed Vital Signs Vital Sign Reading Time Taken Comments Blood Pressure 102/68 10/25/2023 3:04 PM CDT Pulse 74 10/25/2023 3:03 PM CDT Temperature 36.1 C (97 F) 12/28/2017 8:02 AM CDT Respiratory Rate 20 10/25/2023 3:03 PM CDT Oxygen Saturation 97% 10/25/2023 3:03 PM CDT Inhaled Oxygen Concentration - - Weight 99.8 kg (220 lb) 10/25/2023 3:03 PM CDT Height 170.2 cm (5' 7) 10/25/2023 3:03 PM CDT Body Mass Index 34.46 10/25/2023 3:03 PM CDT Plan of Treatment Upcoming Encounters Date Type Department Care Team (Late st Contact Info) Description 10/30/2024 11:15 AM CDT [facility] [id number] [place] [phone] Martha Bennett MD [address] [place] [phone] Health Maintenance Due Date Last Done Comments Diabetes: Retinopathy Eye Exam 1958 DTaP, Tdap and Td Vaccines ( 1 - Tdap) 1959 Pneumococcal Vaccine: 50+ Ye ars (1 of 2 - PCV) 1959 Annual Medicare Wellness Visit 07/01/2003 RSV Immunization or 60+ Years (1 - 1-dose 75+ series) 2013 Zoster Vaccines (2 of 3) 03/02/2015 01/05/2015 Hemoglobin A1C 01/16/2018 07/17/2017 Lipid Panel 07/17/2018 07/17/2017 COVID-19 Vaccine (1 - 2023-2 5 season) 2023 Meningococcal B Vaccine Aged Out No l onger eligible based on patient's age to complete this topic Meningococcal Vaccine Aged Out No ros ulises eligible based on patient's age to complete this topic RSV Immunizations Under 20 Months Aged Out No longer eligible based on patient's age to complete this topic Medical Devices Implanted Type Area Silk Screen Painter Device Identifier Shelf Expiration Date Model / Serial / Lot [employer]onic Implantable Loop Recorder-2017 Implanted:Qty: 1 on 12/28/2017 by Shar Anderson MD Implantable Loop Recorder Chest Wall [employer] 11/20/2018 [id number] / [id number] / Procedures Procedure Name Priority Date/Time Associated Diagnosis Comments LIPID PANEL Routine 07/17/2017 6:11 AM CDT HEMOGLOBIN, GLYCOSYLATED Routine 07/17/2017 12:42 AM CDT from Last 3 Months or Most Recently Relevant to Health Maintenance Results * (ABNORMAL) LIPID PANEL (07/17/2017 6:11 AM CDT) CHOLESTEROL 118 0 - 200 MG/DL 07/17/2017 6:56 AM CDT [facility] Comment:DESIRABLE: <200 TRIGLYCERIDES 86 0 - 149 MG/DL 07/17/2017 6:56 AM CDT [facility] Comment:<150 NORMAL HDL 39(L) >39 MG/DL 07/17/2017 6:56 AM CDT [facility] Comment:LOW: <40 DIRECT LDL 61 0 - 129 MG/DL 07/17/2017 6:56 AM CDT [facility] Comment:<100 OPTIMAL 07/17/2017 6:11 AM CDT Jorge Stahl MD LABORATORY Final Result Performing Organization Address [facility] de Phone Number [facility] [address] [place] [address], [place] [phone] * (ABNORMAL) HEMOGLOBIN, GLYCATED (07/17/2017 12:42 AM CDT) Pathologist [facility] HGB A1C 6.8(H) 4.5 - 6.0 % 07/17/2017 1:05 AM CDT [facility] ESTIMATED AVG GLUCOSE 148 MG/DL 07/17/2017 1:05 AM CDT [facility] 07/17/2017 12:4 2 AM CDT Jorge Stahl MD LABORATORY Final Result Performing Organization Address [facility] de Phone Number [facility] [address] [place] [address], [phone] from Last 3 Months or Most Recently Relevant to Health Maintenance Insurance MEDICAID MEDICAID MEDICAID Care Teams Roll Forming Machine Operator Relationship Specialty Start Date End Date Bunny Dash MD [address] [place] [phone] PCP - General FAMILY PRACTICE 07/17/17 Alok Guzman MD [address] [place] [phone] Neurology Psychiatry 01/04/18 Martha Bennett MD [address] [place] [address] Consulting Physician CARDIOVASCULAR DISEASE 07/22/23
== END 2024-10-08 12:54 | disposition home or self-care (01) ==
DX: H61.23 Impacted cerumen, bilateral (principal)
CPT/HCPCS: 99199